=== PATIENT | male | born 1955 | race Caucasian/White ===

== ENCOUNTER 2017-08-27 10:00 | Inpatient (IN) ==
--- NOTE | 2017-08-27 10:26 | Emergency Department Report ---
General Adult HPI - General Chief complaint: Psychiatric Symptoms Stated complaint: [facility] Time Seen by Provider: 08/27/17 10:16 Source: patient Mode of arrival: ambulatory Limitations: no limitations - History of Present Illness HPI narrative: 1-year-old male presents to the emergency department with a chief complaint of depression and suicidal ideation. Patient noted that his feelings of depression and hopelessness increased yesterday. Patient states that he is living in a poor situation with his family who is asking him to pain more than his share of the bills and have been trying to get him to give them his pain medication. Patient notes chronic pain from cancer which is at baseline and has not changed in nature or characteristic. He is currently being treated for lymphoma. He has no other complaints or associated symptoms. He was at home when the symptoms began. Symptoms have been persistent in nature since onset. Patient denies homicidal ideation or plan. He denies self injury or self-harm. Patient states that he is suicidal with a plan to overdose on his pain medication. - Related Data Home Medications Medication Instructions Recorded Confirmed Albuterol HFA Inhaler [Ventolin 2 puff ORAL INH Q4HR PRN 08/27/17 08/27/17 Hfa 90 mcg/actuation] Albuterol Sulfate 2.5 mg AEROSOL DAILY 08/27/17 08/27/17 Ascorbate Calcium [Vitamin C] 500 mg PO DAILY 08/27/17 08/27/17 Aspirin 650 mg PO DAILY 08/27/17 08/27/17 Atorvastatin [Lipitor] 40 mg PO HS 08/27/17 08/27/17 Bisacodyl [Laxative] 5 mg PO DAILY 08/27/17 08/27/17 Budesonide/Formoterol Fumarate 1 puff IH DAILY PRN 08/27/17 08/27/17 [Symbicort 80-4.5 Mcg Inhaler] Cholecalciferol (Vitamin D3) 2,000 unit PO DAILY 08/27/17 08/27/17 [Vitamin D3] Dicyclomine HCl [Bentyl] 10 mg PO DAILY PRN 08/27/17 08/27/17 Empagliflozin [Jardiance] 10 mg PO DAILY 08/27/17 08/27/17 Gabapentin [Neurontin] 300 mg PO QID 08/27/17 08/27/17 Ketoconazole [Ketoconazole] 1 applicatio TOP BID 08/27/17 08/27/17 Lisinopril [Prinivil] 5 mg PO DAILY 08/27/17 08/27/17 Metoprolol Succinate 25 mg PO DAILY 08/27/17 08/27/17 Multivitamin [One Daily] 1 tab PO DAILY 08/27/17 08/27/17 Omeprazole [Prilosec] 20 mg PO ACB 08/27/17 08/27/17 Ondansetron HCl [Zofran] 4 mg PO Q6H PRN 08/27/17 08/27/17 Oxycodone *IR* [Roxicodone *Ir*] 7.5 mg PO Q4-6HR PRN 08/27/17 08/27/17 Peg 3350 238 G Bottle [Miralax] 17 gm PO DAILY PRN 08/27/17 08/27/17 Ranitidine [Zantac] 150 mg PO DAILY 08/27/17 08/27/17 Tiotropium Handihaler [Spiriva] 1 cap ORAL INH DAILY 08/27/17 08/27/17 buPROPion HCl [Bupropion HCl Sr] 150 mg PO DAILY 08/27/17 08/27/17 Allergies Allergy/AdvReac Type Severity Reaction Status Date / Time No Known Allergies Allergy Verified 08/27/17 10:07 Review of Systems Constitutional: Denies: fever Eyes: Denies: eye pain, vision change ENT: Denies: ear pain, throat pain Cardiovascular: Denies: chest pain, palpitations Respiratory: Denies: cough, dyspnea Gastrointestinal: Denies: abdominal pain, nausea, vomiting, diarrhea Genitourinary: Denies: urgency, dysuria Musculoskeletal: Denies: back pain, arthralgia Integumentary: Denies: erythema, rash Neurological: Denies: headache, numbness Psychiatric: Denies: anxiety, depression Endocrine: Denies: fatigue, heat or cold intolerance Hematological/Lymphatic: Denies: easy bleeding, easy bruising PFSH Patient Stated Medical History Transient Ischemic Attacks ( Yes TIA) Congestive Heart Failure Yes Coronary Artery Disease Yes Hypertension Yes Myocardial Infarction Yes Bronchitis Yes Diabetes Mellitus Type 2 Yes Surgical History: Hernia repair, neck surgery, prostate surgery Family History: Reviewed and noncontributory. - Social History Smoking status: Current every day smoker Substance use type: marijuana Alcohol intake frequency: does not drink Physical Exam - Limitations Limitations: no limitations - General General appearance: alert, in no apparent distress - Normal Exams: Head:: Normocephalic without trauma Eyes:: Pupils are PERRLA w/ EOMI, No scleral icterus, irritation, or foreign bodies noted ENMT:: No facial trauma, nasal exudates, pharyngeal erythema, or exudates are noted Dental: No fractured, loose, or missing teeth noted Neck:: Full range of motion, without adenopathy, JVD, bruits or thyromegaly Chest/Respirations:: Clear all dykes, with good airflow, and symmetry bilaterally Cardiovascular:: Regular rate and rhythm, without murmur or gallop, Pulses 2+ all extremities, capillary refill, <2 seconds all extremities Abdomen:: Bowel sounds positive, soft, non-tender, non-distended, no hepatosplenomegaly, masses or bruits noted Lymphatic:: No lymphadenopathy, or lymphedema noted Musculoskeletal:: No tenderness, or deformity noted, good range of motion, all extremities Integumentary:: No rashes, hives, or bruising noted, hair and nails, without abnormality Neurological:: Patient is alert, and oriented, cranial nerves, motor/sensory/ cerebellar, exams w/o gross deficits, to observation Psychiatric:: Patient exhibits, appropriate attention (Flat affect. ) Course Vital Signs Temperature 98.1 F 08/27/17 10:08 Pulse Rate 103 H 08/27/17 10:08 Respiratory Rate 20 08/27/17 10:08 Blood Pressure 151/78 H 08/27/17 10:08 Pulse Oximetry 91 08/27/17 10:08 Temperature 97.5 F 08/27/17 14:00 Pulse Rate 82 08/27/17 14:00 Respiratory Rate 16 08/27/17 14:00 Blood Pressure 105/71 08/27/17 14:00 Pulse Oximetry 94 08/27/17 14:00 Medical Decision Making - [facility] Narrative Medical decision making narrative: Labs were discussed in detail with the patient and questions are answered. Patient is given 1 L normal saline intravenously. Patient is given analgesic pain medication for treatment of his chronic pain secondary to cancer with improvement of symptoms. Patient is admitted to the hospital in improved condition to [facility] for further evaluation and treatment in a psychiatric facility. He is medically clear for further evaluation and treatment in a psychiatric facility. Patient was accepted by Dr. [facility]. No further orders from accepting physician who is in agreement with the current plan of management. Patient is also in agreement with the current plan of management. - Differential Diagnosis depression, anxiety, metabolic disorder, UTI - Lab Data Result diagrams: 08/27/17 10:38 08/27/17 10:38 Lab Results 08/27/17 08/27/17 08/27/17 Range/Units 10:38 10:38 12:20 WBC 9.0 (4.5-11.0) T/MM3 RBC 5.20 (4.50-5.90) M/MM3 Hgb 15.3 (13.5-17.5) GM/DL Hct 46.4 (41-53) % MCV 89.2 (80-100) UM3 MCH 29.4 (26-34) UUG MCHC 33.0 (31-37) GM/DL RDW Std Deviation 46.9 (36.9-50.2) FL Plt Count 251 (130-400) T/MM3 MPV 9.4 (9.4-12.4) UM3 Immature Gran % (Auto) 0.1 (0.0-0.5) % Neut % (Auto) 74.0 H (33-66) % Lymph % (Auto) 17.4 L (23-45) % Deuel % (Auto) 8.2 (0-9.0) % Eos % (Auto) 0.2 (0-4) % Baso % (Auto) 0.1 (0-2) % Neut # (Auto) 6.6 (1.8-7.7) T/MM3 Lymph # (Auto) 1.6 (1-4.8) T/MM3 Deuel # (Auto) 0.7 (0-0.8) T/MM3 Eos # (Auto) 0.0 (0-0.5) T/MM3 Baso # (Auto) 0.0 (0-0.2) T/MM3 Abs Immat Gran (auto) 0.01 (0.00-0.03) T/MM3 Turbidity < 20 (0-20) Sodium 139 (134-144) MEQ/L Potassium 4.6 (3.6-5) MEQ/L Chloride 103 (98-107) MEQ/L Carbon Dioxide 25 (22-30) MEQ/L Anion Gap 11 (5-15) MEQ/L BUN 18.0 (9-20) MG/DL Creatinine 0.6 L (0.8-1.5) MG/DL GFR Calculation 137 BUN/Creatinine Ratio 30 H (6-26) RATIO Glucose 91 (75-110) MG/DL Calculated Osmolality 270 (261-280) MOSM/KG Calcium 9.7 (8.4-10.2) MG/DL Total Bilirubin 1.00 (0.20-1.30) MG/DL Icterus Index < 2 (0-7) AST 18 (17-59) U/L ALT 31 (21-72) U/L Alkaline Phosphatase 85 (38-126) U/L Total Protein 7.8 (6.3-8.2) G/DL Albumin 4.6 (3.5-5.0) G/DL Globulin 3.2 (2.4-3.6) G/DL Albumin/Globulin Ratio 1.4 (1.1-2.2) RATIO TSH 1.05 (0.47-4.68) MIU/L Specimen Hemolysis < 15 (0-25) Ur Collection Type Urine, clean catch Urine Color Yellow (YELLOW) Urine Clarity Clear Urine pH 6.0 (5.0-8.0) Ur Specific Dobbins 1.015 (1.015-1.025) Urine Protein Negative (NEGATIVE) Urine Glucose (UA) 3+ A (NEGATIVE) Urine Ketones 1+ A (NEGATIVE) Urine Occult Blood Negative (NEGATIVE) Urine Nitrate Negative (NEGATIVE) Urine Bilirubin Negative (NEGATIVE) Urine Urobilinogen 1.0 (NORMAL) EU/DL Ur Leukocyte Esterase Negative (NEGATIVE) Urinalysis Comment Microscopic not ind. Salicylates < 1.0 L (2-20) MG/DL Urine Opiates Screen ng/mL Ur Oxycodone Screen ng/mL Urine Methadone Screen ng/mL Ur Propoxyphene Screen ng/mL Acetaminophen < 10 L (10-30) UG/ML Ur Barbiturates Screen ng/mL U Tricyclic Antidepress ng/mL Ur Phencyclidine Scrn ng/mL Ur Amphetamines Screen ng/mL U Methamphetamines Scrn ng/mL U Benzodiazepines Scrn ng/mL Urine Cocaine Screen ng/mL U Cannabinoids Screen ng/mL Ur Drug Screen Confirm Alcohol, Quantitative <10 (<10) MG/DL 08/27/17 08/27/17 Range/Units 12:20 12:20 WBC (4.5-11.0) T/MM3 RBC (4.50-5.90) M/MM3 Hgb (13.5-17.5) GM/DL Hct (41-53) % MCV (80-100) UM3 MCH (26-34) UUG MCHC (31-37) GM/DL RDW Std Deviation (36.9-50.2) FL Plt Count (130-400) T/MM3 MPV (9.4-12.4) UM3 Immature Gran % (Auto) (0.0-0.5) % Neut % (Auto) (33-66) % Lymph % (Auto) (23-45) % Deuel % (Auto) (0-9.0) % Eos % (Auto) (0-4) % Baso % (Auto) (0-2) % Neut # (Auto) (1.8-7.7) T/MM3 Lymph # (Auto) (1-4.8) T/MM3 Deuel # (Auto) (0-0.8) T/MM3 Eos # (Auto) (0-0.5) T/MM3 Baso # (Auto) (0-0.2) T/MM3 Abs Immat Gran (auto) (0.00-0.03) T/MM3 Turbidity (0-20) Sodium (134-144) MEQ/L Potassium (3.6-5) MEQ/L Chloride (98-107) MEQ/L Carbon Dioxide (22-30) MEQ/L Anion Gap (5-15) MEQ/L BUN (9-20) MG/DL Creatinine (0.8-1.5) MG/DL GFR Calculation BUN/Creatinine Ratio (6-26) RATIO Glucose (75-110) MG/DL Calculated Osmolality (261-280) MOSM/KG Calcium (8.4-10.2) MG/DL Total Bilirubin (0.20-1.30) MG/DL Icterus Index (0-7) AST (17-59) U/L ALT (21-72) U/L Alkaline Phosphatase (38-126) U/L Total Protein (6.3-8.2) G/DL Albumin (3.5-5.0) G/DL Globulin (2.4-3.6) G/DL Albumin/Globulin Ratio (1.1-2.2) RATIO TSH (0.47-4.68) MIU/L Specimen Hemolysis (0-25) Ur Collection Type Urine Color (YELLOW) Urine Clarity Urine pH (5.0-8.0) Ur Specific Dobbins (1.015-1.025) Urine Protein (NEGATIVE) Urine Glucose (UA) (NEGATIVE) Urine Ketones (NEGATIVE) Urine Occult Blood (NEGATIVE) Urine Nitrate (NEGATIVE) Urine Bilirubin (NEGATIVE) Urine Urobilinogen (NORMAL) EU/DL Ur Leukocyte Esterase (NEGATIVE) Urinalysis Comment Salicylates (2-20) MG/DL Urine Opiates Screen Negative ng/mL Ur Oxycodone Screen Positive ng/mL Urine Methadone Screen Negative ng/mL Ur Propoxyphene Screen Negative ng/mL Acetaminophen (10-30) UG/ML Ur Barbiturates Screen Negative ng/mL U Tricyclic Antidepress Negative ng/mL Ur Phencyclidine Scrn Negative ng/mL Ur Amphetamines Screen Negative ng/mL U Methamphetamines Scrn Negative ng/mL U Benzodiazepines Scrn Negative ng/mL Urine Cocaine Screen Negative ng/mL U Cannabinoids Screen Positive ng/mL Ur Drug Screen Confirm Sent out Alcohol, Quantitative (<10) MG/DL Disposition Clinical Impression: Depression Qualifiers: Depression Type: major depressive disorder Major depression recurrence: single episode Active/Remission status: currently active Major depression episode severity: severe Psychotic features: without psychotic features Qualified Code(s ): F32.2 - Major depressive disorder, single episode, severe without psychotic features Disposition: 64 To [facility] Condition: Stable Time of Disposition: 12:00 - Seen By: physician
[2017-08-27] MEDS ORDERED: NS 1,000 ML IV ONE (11:15)
[2017-08-27] MEDS: SALINE FLUSH 10ml SYRINGE IVF PRN ×2 (11:24→12:58)
[2017-08-27] MEDS ORDERED: Oxycodone/Acetaminophen 5/325 1 TAB PO ONE (13:07)
[2017-08-27] MEDS ORDERED: HALOPERIDOL 0.5 MG TABLET PO PRN (13:59)
[2017-08-27] MEDS ORDERED: LORazepam 0.5 MG TABLET PO PRN (13:59)
[2017-08-27] MEDS ORDERED: HALOPERIDOL 5 MG/ML INJECTION IM PRN (13:59)
[2017-08-27 15:40] VITALS: BMI 28.2
[2017-08-27] MEDS ORDERED: BUDESONIDE/FORMOTEROL 80/4.5mcg INHALER IH PRN (16:03)
[2017-08-27] MEDS ORDERED: DICYCLOMINE 10mg CAPSULE PO PRN (16:03)
[2017-08-27] MEDS ORDERED: ONDANSETRON 4 MG TABLET PO PRN (16:03)
[2017-08-27] MEDS ORDERED: ALBUTEROL/IPRATROPIUM 2.5mg-0.5mg/3ml NEB AEROSOL PRN (16:04)
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
[2017-08-27] MEDS: NICOTINE 14 MG PATCH TD SCH (17:47)
[2017-08-27] MEDS: GABAPENTIN 100 MG CAPSULE PO SCH ×3 (17:48→21:11)
[2017-08-27] MEDS: Oxycodone *IR* 5 MG TABLET PO PRN ×2 (17:50→21:18)
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
[2017-08-27] MEDS ORDERED: ALBUTEROL 2.5mg/3ml (0.083%) NEB AEROSOL PRN (19:00)
[2017-08-27] MEDS: ATORVASTATIN 40 MG TABLET PO SCH ×2 (19:50→21:11)
[2017-08-27] MEDS: NICOTINE PATCH REMOVAL TD SCH (21:10)
[2017-08-28] MEDS: Oxycodone *IR* 5 MG TABLET PO PRN ×5 (01:17→18:57)
[2017-08-28] MEDS: OMEPRAZOLE 20 MG CAPSULE PO SCH (05:43)
[2017-08-28] MEDS: ASCORBIC ACID 500 MG TABLET PO SCH (08:28)
[2017-08-28] MEDS: Bisacodyl EC TAB 5 MG TABLET PO SCH (08:29)
[2017-08-28] MEDS: EMPAGLIFLOZIN 10 MG TABLET PO SCH (08:29)
[2017-08-28] MEDS: ALBUTEROL 2.5mg/3ml (0.083%) NEB AEROSOL SCH (08:30)
[2017-08-28] MEDS: RANITIDINE 150 MG TABLET PO SCH (08:30)
[2017-08-28] MEDS: LISINOPRIL 5 MG TABLET PO SCH (08:30)
[2017-08-28] MEDS: MULTI-VITAMIN PLAIN TABLET PO SCH (08:30)
[2017-08-28] MEDS: GABAPENTIN 300 MG CAPSULE PO SCH ×4 (08:42→20:07)
[2017-08-28] MEDS: ASPIRIN 325 MG TABLET PO SCH (08:43)
[2017-08-28] MEDS: NICOTINE PATCH REMOVAL TD SCH (08:43)
[2017-08-28] MEDS: BuPROPion SR 150mg (12HR) TABLET PO SCH (08:43)
[2017-08-28] MEDS: NICOTINE 14 MG PATCH TD SCH (08:43)
[2017-08-28] MEDS: TIOTROPIUM 18mcg/cap HANDIHALER ORAL INH SCH (09:30)
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
--- NOTE | 2017-08-28 12:26 | Progress Note ---
Oncology Subjective No new complaints Doesnt want leg x ray done anticpates chemo next week. Pt understands that he has recurrent head and neck ca Home Medications Albuterol HFA Inhaler [Ventolin Hfa 90 mcg/actuation] 2 puff ORAL INH Q4HR PRN 08/27/17 [History Confirmed 08/27/17] Albuterol Sulfate 2.5 mg AEROSOL DAILY 08/27/17 [History Confirmed 08/27/17] Ascorbate Calcium [Vitamin C] 500 mg PO DAILY 08/27/17 [History Confirmed ] Aspirin 650 mg PO DAILY 08/27/17 [History Confirmed 08/27/17] Atorvastatin [Lipitor] 40 mg PO HS 08/27/17 [History Confirmed 08/27/17] Bisacodyl [Laxative] 5 mg PO DAILY 08/27/17 [History Confirmed 08/27/17] Budesonide/Formoterol Fumarate [Symbicort 80-4.5 Mcg Inhaler] 1 puff IH DAILY PRN 08/27/17 [History Confirmed 08/27/17] Cholecalciferol (Vitamin D3) [Vitamin D3] 2,000 unit PO DAILY 08/27/17 [History Confirmed 08/27/17] Dicyclomine HCl [Bentyl] 10 mg PO DAILY PRN 08/27/17 [History Confirmed 08/27/17 ] Empagliflozin [Jardiance] 10 mg PO DAILY 08/27/17 [History Confirmed 08/27/17] Gabapentin [Neurontin] 300 mg PO QID 08/27/17 [History Confirmed 08/27/17] Ketoconazole [Ketoconazole] 1 applicatio TOP BID 08/27/17 [History Confirmed ] Lisinopril [Prinivil] 5 mg PO DAILY 08/27/17 [History Confirmed 08/27/17] Metoprolol Succinate 25 mg PO DAILY 08/27/17 [History Confirmed 08/27/17] Multivitamin [One Daily] 1 tab PO DAILY 08/27/17 [History Confirmed 08/27/17] Omeprazole [Prilosec] 20 mg PO ACB 08/27/17 [History Confirmed 08/27/17] Ondansetron HCl [Zofran] 4 mg PO Q6H PRN 08/27/17 [History Confirmed 08/27/17] Oxycodone *IR* [Roxicodone *Ir*] 7.5 mg PO Q4-6HR PRN 08/27/17 [History Confirmed 08/27/17] Peg 3350 238 G Bottle [Miralax] 17 gm PO DAILY PRN 08/27/17 [History Confirmed 08/27/17] Ranitidine [Zantac] 150 mg PO DAILY 08/27/17 [History Confirmed 08/27/17] Tiotropium Handihaler [Spiriva] 1 cap ORAL INH DAILY 08/27/17 [History Confirmed 08/27/17] buPROPion HCl [Bupropion HCl Sr] 150 mg PO DAILY 08/27/17 [History Confirmed ] Active Medications Albuterol Sulfate (Proventil Neb (0.083%)) 2.5 mg AEROSOL Q4H PRN PRN Reason: Shortness of air Albuterol Sulfate (Proventil Neb (0.083%)) 2.5 mg AEROSOL DAILY [facility] Last Admin: 08/28/17 08:30 Dose: 2.5 mg Albuterol/Ipratropium (Duoneb) 3 ml AEROSOL Q6H PRN Last Admin: 08/27/17 16:20 Dose: 3 ml Ascorbic Acid (Vitamin C) 500 mg PO DAILY [facility] Last Admin: 08/28/17 08:28 Dose: 500 mg Aspirin (Asa) 650 mg PO DAILY [facility] Last Admin: 08/28/17 08:43 Dose: 650 mg Atorvastatin Calcium (Lipitor) 40 mg PO [facility] Last Admin: 08/27/17 21:11 Dose: Not Given Bisacodyl (Dulcolax) 5 mg PO DAILY [facility] Last Admin: 08/28/17 08:29 Dose: 5 mg Budesonide/Formoterol Fumarate (Symbicort Inhaler) 1 puff IH DAILY PRN PRN Reason: PRN orders Bupropion HCl (Wellbutrin Sr) 150 mg PO DAILY [facility] Last Admin: 08/28/17 08:43 Dose: 150 mg Cholecalciferol (Vit. D-3) 2,000 unit PO DAILY [facility] Last Admin: 08/28/17 08:29 Dose: 2,000 unit Dicyclomine HCl (Bentyl) 10 mg PO DAILY PRN PRN Reason: PRN orders Empagliflozin (Jardiance) 10 mg PO DAILY [facility] Last Admin: 08/28/17 08:29 Dose: 10 mg Gabapentin (Neurontin) 300 mg PO QID [facility] Last Admin: 08/28/17 08:42 Dose: 300 mg Haloperidol (Haldol) 0.5 mg PO Q6H PRN PRN Reason: Extreme agitation Haloperidol Lactate (Haldol) 0.5 mg IM Q6H PRN PRN Reason: Extreme agitation Ketoconazole (Nizoral 2% Cream) 1 applic TOP BID [facility] Last Admin: 08/28/17 08:29 Dose: 1 applic Lisinopril (Prinivil) 5 mg PO DAILY [facility] Last Admin: 08/28/17 08:30 Dose: 5 mg Lorazepam (Ativan) 0.5 mg PO Q6H PRN PRN Reason: Extreme agitation Lorazepam (Ativan Inj) 0.5 mg IM Q6H PRN PRN Reason: Extreme agitation Metoprolol Succinate (Toprol Xl) 25 mg PO DAILY [facility] Last Admin: 08/28/17 08:30 Dose: 25 mg Multivitamins (Theragran) 1 tab PO DAILY [facility] Last Admin: 08/28/17 08:30 Dose: 1 tab Nicotine (Nicoderm) 14 mg TD DAILY [facility] Last Admin: 08/28/17 08:43 Dose: 14 mg Nicotine (Nicotine Patch Removal) 1 removal TD DAILY [facility] Last Admin: 08/28/17 08:43 Dose: 1 removal Omeprazole (Prilosec) 20 mg PO ACB [facility] Last Admin: 08/28/17 05:43 Dose: 20 mg Ondansetron HCl (Zofran Po) 4 mg PO Q6H PRN PRN Reason: Nausea &/or vomiting Oxycodone HCl (Roxicodone *Ir*) 5 mg PO Q3H PRN PRN Reason: Pain Last Admin: 08/28/17 11:43 Dose: 5 mg Polyethylene Glycol (Miralax) 17 gm PO DAILY PRN PRN Reason: CONSTIPATION Ranitidine HCl (Zantac) 150 mg PO DAILY [facility] Last Admin: 08/28/17 08:30 Dose: 150 mg Tiotropium [place] (Spiriva) 1 cap ORAL INH DAILY [facility] Last Admin: 08/28/17 09:30 Dose: 1 cap Intake & Output 08/26/17 08/27/17 08/28/17 08/29/17 06:59 06:59 06:59 06:59 Intake Total 1000 / 1000 Balance 1000 / 1000 Weight 89.3 kg Active Orders 24 hr Category Date Time Status Admit [Place in Facility as:] [ADMIT] Order Admit 08/27/17 13:38 Active Admitting Diagnosis [ADMIT] Routine Admit 08/27/17 13:59 Ordered [facility] Certification [ADMIT] Routine Admit 08/27/17 13:59 Active [facility] Legal Status [ADMIT] Routine Admit 08/27/17 13:59 Active Activity [RC] .CONTINUOUS Care 08/27/17 16:02 Active Blood Glucose Assessment BGM [RC] 06,10,14,20 Care 08/27/17 16:02 Active [facility] Activity Therapy [RC] Now Care 08/27/17 13:59 Active [facility] Observation Level [RC] Now Care 08/27/17 13:59 Active May give home meds during hosp [RC] .once Care 08/27/17 16:07 Active Supplemental Oxygen Titration [RC] ONCE Care 08/27/17 16:07 Active Code Status Order Code 08/27/17 13:41 Ordered Case Management Consult [CONS] Routine Consults 08/27/17 13:59 Active Physician Consult [CONS] Routine Consults 08/27/17 13:59 Active Physician Consult [CONS] Routine Consults 08/27/17 14:00 Active Regular Diet [DIET] Diet 08/27/17 Dinner Active XR femur RT 2V Routine Exams 08/28/17 08:00 Ordered Albuterol Neb (0.083%) [Proventil Neb (0.083%)] Medication 08/28/17 09:00 Active 2.5 mg AEROSOL DAILY Albuterol Neb (0.083%) [Proventil Neb (0.083%)] Medication 08/27/17 19:00 Active 2.5 mg AEROSOL Q4H PRN Albuterol/Ipratropium [Duoneb] Medication 08/27/17 16:04 Active 3 ml AEROSOL Q6H PRN Ascorbic Acid [Vitamin C] Medication 08/28/17 09:00 Active 500 mg PO DAILY Aspirin [ASA] Medication 08/28/17 09:00 Active 650 mg PO DAILY Atorvastatin [Lipitor] Medication 08/27/17 21:00 Active 40 mg PO HS Bisacodyl EC TAB [Dulcolax] Medication 08/28/17 09:00 Active 5 mg PO DAILY BuPROPion SR [Wellbutrin SR] Medication 08/28/17 09:00 Active 150 mg PO DAILY Budesonide/Formoterol 80/4.5 [Symbicort Inhaler] Medication 08/27/17 16:03 Active 1 puff IH DAILY PRN Cholecalciferol [Vit. D-3] Medication 08/28/17 09:00 Active 2,000 unit PO DAILY Dicyclomine [Bentyl] Medication 08/27/17 16:03 Active 10 mg PO DAILY PRN Empagliflozin [Jardiance] Medication 08/28/17 09:00 Active 10 mg PO DAILY Gabapentin [Neurontin] Medication 08/28/17 09:00 Active 300 mg PO QID Haloperidol Inj [Haldol] Medication 08/27/17 13:59 Active 0.5 mg IM Q6H PRN Haloperidol [Haldol] Medication 08/27/17 13:59 Active 0.5 mg PO Q6H PRN Ketoconazole Cream [Nizoral 2% Cream] Medication 08/27/17 21:00 Active 1 applic TOP BID LORazepam INJ [Ativan Inj] Medication 08/27/17 13:59 Active 0.5 mg IM Q6H PRN LORazepam [Ativan] Medication 08/27/17 13:59 Active 0.5 mg PO Q6H PRN Lisinopril [Prinivil] Medication 08/28/17 09:00 Active 5 mg PO DAILY Metoprolol Succinate (XL) [Toprol XL] Medication 08/28/17 09:00 Active 25 mg PO DAILY Multi-Vitamin Plain [Theragran] Medication 08/28/17 09:00 Active 1 tab PO DAILY Nicotine Patch Removal Medication 08/27/17 16:15 Active 1 removal TD DAILY Nicotine Patch [Nicoderm] Medication 08/27/17 16:06 Active 14 mg TD DAILY Omeprazole [Prilosec] Medication 08/28/17 06:30 Active 20 mg PO ACB Ondansetron Tab [Zofran Po] Medication 08/27/17 16:03 Active 4 mg PO Q6H PRN Oxycodone *IR* [Roxicodone *IR*] Medication 08/27/17 13:59 Active 5 mg PO Q3H PRN PEG 3350 17gm PACKET [Miralax] Medication 08/28/17 09:00 Active 17 gm PO DAILY PRN Ranitidine [Zantac] Medication 08/28/17 09:00 Active 150 mg PO DAILY Tiotropium Handihaler [Spiriva] Medication 08/28/17 09:00 Active 1 cap ORAL INH DAILY Oxygen Admistration [RT] . DIRECTED Therapy 08/27/17 16:02 Active RT Tobacco Cessation Product Inspection Coordinator [RT] BID Therapy 08/27/17 16:35 Active Exam Vital signs: Temperature 97.2 F 08/28/17 08:00 Pulse Rate 101 H 08/28/17 08:00 Respiratory Rate 14 08/28/17 09:30 Blood Pressure 124/81 08/28/17 08:00 Pulse Oximetry 96 08/28/17 09:05 - Constitutional no acute distress, average body habitus - Routine HEENT Exam Head: Present: normocephalic, atraumatic - Routine Neck Exam Present: supple. Absent: lymphadenopathy Comments: s/p r neck dissection - Routine Respiratory Exam Present: CTA bilaterally - Routine Cardiovascular Exam Present: RRR - Routine Abdominal Exam Present: soft, non tender - Routine Extremities Exam Present: no edema. Absent: cyanosis, clubbing - Routine Neurological Exam Present: alert, oriented X3 Oncology Results - Labs CBC & Chem 7: 08/27/17 10:38 08/27/17 10:38 Assessment and Plan Assessment and Plan: 1. 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 S/P Transoral robotic resection with 1.8 cm primary and neck dissection with 15 level. 2 nodes with 4 positive, with largest being 5.2 cm neck node. 13 level: 3 nodes, 2 positive. 10 level: 4 nodes with no cancer. No extracapsular extension. CT in October had mildly prominent cervical nodes. These progressed in June by CT and PET scan positive in neck and bone. 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 Port has been placed. Performance status is 2; therefore, by NCCN guidelines he would qualify for single agent chemotherapy. Options would include Cisplatin, Carboplatin, Erbitux and Taxol. [place] has most activity in head and neck cancer. Discussion with patient and daughter about therapy, palliative nature with best supportive care. This is not curative. Discussed goal of therapy to suppress cancer growth and symptoms related to cancer. He is frail with comorbid conditions. Therefore, weekly Carboplatin would provide best chance of response but have limits on toxicity. Will provide education and look at starting in next 2 weeks if he desires. 07/29/17: He will have insurance coverage on 08/09/17. Would like to delay starting therapy until that time. Will see back on 08/10/17 to start therapy. 08/10/17: Ready to start therapy. Will use weekly Carboplatin. Start today. Dose calculated at 300 mg. Will see Cande Gao in one week and I will see in 2 weeks. 08/23/17: Carboplatinum has been continued in his current dose of 300 mg he is tolerating it very well. Counts have been adequate. He has slight nausea. We'll continue present therapy. He is tolerating therapy very well and it is too early to assess his response disease. The nature of this therapy is palliative. He was having pain at time of presentation. Be concern is the lesion in the right femur and will obtain plain films to be sure that this is not causing a problem but he is not having any pain in this area. Patient's depression may affect his decision to continue chemotherapy. 2. Bone metastasis. Would look at using Xgeva prevention of skeletal related events. This will probably take place in 2-4 weeks if the patient elects to continue chemotherapy.. 3. Chronic obstructive pulmonary disease. He has seen Dr. Kumar. He uses oxygen at night and is on inhalers. 4. Diabetes mellitus blood sugars have been fairly well controlled. 07/19/17: Blood sugar 96. 08/10/17: Blood sugar 96. 08/23/17: Blood sugar 87. 5. Chronic pain from metastasis. Narcotic contract has been in place. Prescription was given on 08/23/17 484 tablets. 25 remain. It is of note that his urine drug screen today was negative for opioids. Therefore one must reduce that there was diversion, substitution, or other processes that have gone on to not allow this patient to have his pain medications. In addition his method of suicide that he commented on was to take an overdose of pain medicine. We'll await psych input regarding pain management 6. History of heart disease Recommendations Evaluate living situation and have a safe discharge plan Evaluate pain and need for narcotics X-ray of the right femur Supportive care antidepressant Things you very much for allowing us to be involved in the care of Mr. Catherine Campbell No new complaints wednesday08/28/2017 Pt and shawna from [place] here Pt declines leg x ray (deffered to next week and discussion with Dr. Samaniego/ No new c/o Plan consider resuming chemo with carbo next week per Dr Samaniego. - Time Spent With Patient Total time spent is greater than 50% in coordination of care (as documented) at patient's floor/unit and/or counseling patient: less than 15 minutes
[2017-08-28] MEDS: ATORVASTATIN 40 MG TABLET PO SCH (20:07)
[2017-08-29] MEDS: Oxycodone *IR* 5 MG TABLET PO PRN ×9 (00:04→23:54)
[2017-08-29] MEDS ORDERED: Oxycodone *IR* 5 MG TABLET PO ONE (00:29)
[2017-08-29] MEDS: MORPHINE SULFATE 10mg/0.5ml ORAL LIQ SL PRN ×8 (00:38→23:53)
[2017-08-29] MEDS: OMEPRAZOLE 20 MG CAPSULE PO SCH (05:58)
[2017-08-29] MEDS: ASCORBIC ACID 500 MG TABLET PO SCH (08:13)
[2017-08-29] MEDS: Bisacodyl EC TAB 5 MG TABLET PO SCH (08:15)
[2017-08-29] MEDS: BuPROPion SR 150mg (12HR) TABLET PO SCH (08:15)
[2017-08-29] MEDS: EMPAGLIFLOZIN 10 MG TABLET PO SCH (08:16)
[2017-08-29] MEDS: LISINOPRIL 5 MG TABLET PO SCH (08:17)
[2017-08-29] MEDS: GABAPENTIN 300 MG CAPSULE PO SCH ×4 (08:17→20:53)
[2017-08-29] MEDS: NICOTINE 14 MG PATCH TD SCH (08:18)
[2017-08-29] MEDS: MULTI-VITAMIN PLAIN TABLET PO SCH (08:18)
[2017-08-29] MEDS: RANITIDINE 150 MG TABLET PO SCH (08:18)
[2017-08-29] MEDS: ALBUTEROL 2.5mg/3ml (0.083%) NEB AEROSOL SCH (09:27)
[2017-08-29] MEDS: TIOTROPIUM 18mcg/cap HANDIHALER ORAL INH SCH (09:53)
[2017-08-29] MEDS ORDERED: INHALER ASSIST DEVICE (Optichamber) MC ONE (10:15)
--- NOTE | 2017-08-29 10:42 | Neuropsych Progress Note ---
[facility] Subjective Date: 08/29/17 - Sujective/Severity of Illness Medications: Albuterol Sulfate (Proventil Neb (0.083%)) 2.5 mg AEROSOL Q4H PRN PRN Reason: Shortness of air Albuterol Sulfate (Proventil Neb (0.083%)) 2.5 mg AEROSOL DAILY [facility] Last Admin: 08/29/17 09:27 Dose: 2.5 mg Ascorbic Acid (Vitamin C) 500 mg PO DAILY [facility] Last Admin: 08/29/17 08:13 Dose: 500 mg Aspirin (Asa) 650 mg PO DAILY [facility] Last Admin: 08/28/17 08:43 Dose: 650 mg Atorvastatin Calcium (Lipitor) 40 mg PO HS [facility] Last Admin: 08/28/17 20:07 Dose: 40 mg Bisacodyl (Dulcolax) 5 mg PO DAILY [facility] Last Admin: 08/29/17 08:15 Dose: 5 mg Budesonide/Formoterol Fumarate (Symbicort Inhaler) 2 puff ORAL INH RTBID [facility] Bupropion HCl (Wellbutrin Sr) 150 mg PO DAILY [facility] Last Admin: 08/29/17 08:15 Dose: 150 mg Cholecalciferol (Vit. D-3) 2,000 unit PO DAILY [facility] Last Admin: 08/29/17 08:16 Dose: 2,000 unit Dicyclomine HCl (Bentyl) 10 mg PO DAILY PRN PRN Reason: PRN orders Empagliflozin (Jardiance) 10 mg PO DAILY [facility] Last Admin: 08/29/17 08:16 Dose: 10 mg Gabapentin (Neurontin) 300 mg PO QID [facility] Last Admin: 08/29/17 08:17 Dose: 300 mg Haloperidol (Haldol) 0.5 mg PO Q6H PRN PRN Reason: Extreme agitation Haloperidol Lactate (Haldol) 0.5 mg IM Q6H PRN PRN Reason: Extreme agitation Ketoconazole (Nizoral 2% Cream) 1 applic TOP BID [facility] Last Admin: 08/29/17 08:17 Dose: 1 applic Lisinopril (Prinivil) 5 mg PO DAILY [facility] Last Admin: 08/29/17 08:17 Dose: 5 mg Lorazepam (Ativan) 0.5 mg PO Q6H PRN PRN Reason: Extreme agitation Lorazepam (Ativan Inj) 0.5 mg IM Q6H PRN PRN Reason: Extreme agitation Metoprolol Succinate (Toprol Xl) 25 mg PO DAILY [facility] Last Admin: 08/29/17 08:18 Dose: 25 mg Morphine Sulfate (Roxanol Oral Liq) 2 mg SL Q2H PRN PRN Reason: Pain Last Admin: 08/29/17 08:19 Dose: 2 mg Multivitamins (Theragran) 1 tab PO DAILY [facility] Last Admin: 08/29/17 08:18 Dose: 1 tab Nicotine (Nicoderm) 14 mg TD DAILY [facility] Last Admin: 08/29/17 08:18 Dose: 14 mg Nicotine (Nicotine Patch Removal) 1 removal TD DAILY [facility] Last Admin: 08/28/17 08:43 Dose: 1 removal Omeprazole (Prilosec) 20 mg PO ACB [facility] Last Admin: 08/29/17 05:58 Dose: 20 mg Ondansetron HCl (Zofran Po) 4 mg PO Q6H PRN PRN Reason: Nausea &/or vomiting Oxycodone HCl (Roxicodone *Ir*) 5 mg PO Q3H PRN PRN Reason: Pain Last Admin: 08/29/17 08:59 Dose: 5 mg Polyethylene Glycol (Miralax) 17 gm PO DAILY PRN PRN Reason: CONSTIPATION Ranitidine HCl (Zantac) 150 mg PO DAILY [facility] Last Admin: 08/29/17 08:18 Dose: 150 mg Tiotropium [place] (Spiriva) 1 cap ORAL INH DAILY [facility] Last Admin: 08/29/17 09:53 Dose: 1 cap Subjective: Pt seen and chart examined. Nursing reports pt is doing well. Sleeping well and has a good appetite. On face to face the pt states he is feeling better. Remains depressed but mood is improved. Denies S/I. Tolerating meds. Continues to worry about home situation Start Time: 10:15 Stop Time: 10:30 Mental Status Exam Vitals: Last Vital Signs Temp 97.2 F 08/29/17 08:44 Pulse 97 08/29/17 08:44 Resp 20 08/29/17 09:50 BP 110/86 08/29/17 08:44 Pulse Ox 91 08/29/17 09:31 Height: 1.78 m Weight: 89.3 kg - Mental Status Exam Muscle Strength/Tone: Normal Dressing: Casual Grooming: Good Attitude: Cooperative Motor Activity: Normal Eye Contact: Good Speech: Normal Volume: Normal Rhythm: Appropriate Rhythm Orientation: Oriented X4 Mood: Depressed Rate of Thoughts: Appropriate Rate Thought Organization: Organized Associations: Intact Abstract Reasoning: Intact, able to abstract Computation: Intact Thought Content: Hopelessness, Helplessness Perception/Psychotic: Perception Normal Language: Naming Intact Fund of Knowledge: Appropriate Memory: Grossly Intact Suicidal Ideation: Intermittent Homicidal Ideation: None Insight: Limited Judgement: Limited Impulse Control: Fair - Laboratory Result Diagrams: 08/27/17 10:38 08/27/17 10:38 Laboratory Results - last 24 hr 08/28/17 08/28/17 08/28/17 11:23 15:55 20:34 Glucometer 106 146 163 08/29/17 08/29/17 07:25 09:51 Glucometer 123 132 Assessment and Plan (1) Major depress dis, severe Current visit: Yes Status: Acute (2) Lymphoma Current visit: Yes Status: Chronic Hospital Course Summary Disclaimer: The visit summary below is not to be considered part of the above Progress Note. Hospital Course: Plan - 08/27/17 Agree with admission to [facility] under the care of Dr. Richards and team. Hospitalist service consulted for medical management. Admission labs were unremarkable. Will monitor periodically throughout admission. History of lymphoma which patient reports is terminal and currently undergoing chemotherapy per Dr. Samaniego. Consult Dr. Samaniego for oncology maintenance. Monitor blood sugars closely and continue home Jardiance. Continue home blood pressure medications - lisinopril and metoprolol. Monitor blood pressure and heart rate closely. Continue home breathing treatments. DuoNeb treatments PRN. Use of oxygen at night at 4L and during the day as needed. Goal pulse ox between 90-95%. Continue home prilosec and zantac for GERD and GI protection. Nicotine patch for tobacco dependency. Will consult RT for smoking cessation counseling. Patient may take home medications. Continue bowel motivation given narcotic pain control. Case management to work with patient on finding safe place upon discharge. Upon discharge, patient's care will be returned to his PCP. 08/29/2017 Pt doing better. Mood symptoms primarily situational. Consider switching Wellbutrin to XL version
[2017-08-29] MEDS: ASPIRIN 325 MG TABLET PO SCH (11:25)
[2017-08-29] MEDS: NICOTINE PATCH REMOVAL TD SCH (11:25)
--- NOTE | 2017-08-29 11:34 | XRay Report ---
Indication: POSITIVE PET RT FEMUR XR femur LT 2V: Comparison: None Technique: AP and lateral views Findings: Patient fails to show any acute bony abnormality. No pathologic fractures are identified. No lytic or blastic lesions are seen. Mild medial degenerative changes noted about the knee. Hip joint is intact. Impression: No acute bony findings are appreciated. Sometimes bone scanning can be more sensitive than plain film radiography. .
--- NOTE | 2017-08-29 11:36 | XRay Report ---
Indication: Positive PET right femoral neck XR femur RT 2V: Comparison: None Technique: AP and lateral view Findings: Patient fails to show within the visualized bony abnormality. The cortex seems intact. No focal lytic or blastic lesions are seen. No traumatic abnormality such as fractures or malalignments noted. Hip joint knee joint are intact. Impression: 1. No definitive bony lesions appreciated. Specifically, no pathologic fracture or definitive focal bony lesions are seen. 2. Since patient showed abnormal findings on the recent PET scan, perhaps bone scanning or MR imaging may be a consideration. It can take up to 50% bone mineral lost before lesions are visualized on plain radiographs. .
--- NOTE | 2017-08-29 16:05 | Progress Note ---
- Date 08/29/17 Subjective: Brigido is seen in follow up. He reports feeling "less stressed here", and overall is feeling better. Remains concerned about DC plans. States that he cannot return home with daughter and her "his mother recently , and I am afraid I am going to be next." Reports that "they always needed something- the rent, the utilities, the gas. They are always out of money." Again reports that he thinks his pain meds were "replaced with something else. There wasn't anything in my urine." Believes that his daughter is stealing his pain medications "She is always asking me for 'just a pill or two'." He is looking forward to potential DC to nursing facility. We discussed other community options, such as [facility] in the [place], that can provide support to cancer patients and their families. He again reports that he prefers to use "hemp oil" for his pain, and that it was very effective for him. He is pleasant, mood and affect are fairly appropriate. I sat with him for a while to chat and offered support. Objective Vital signs: Temperature 97.2 F 08/29/17 08:44 Pulse Rate 97 08/29/17 08:44 Respiratory Rate 18 08/29/17 10:44 Blood Pressure 110/86 08/29/17 08:44 Pulse Oximetry 91 08/29/17 09:31 Height/Weight/BMI: Height 1.78 m Weight 89.3 kg Body Mass Index 28.2 - Constitutional Present: no acute distress, well nourished, well developed, cooperative - Routine HEENT Exam Head: Present: normocephalic, atraumatic Eye: Present: EOMI, PERRL, normal accommodation ENT: Present: mucous membranes moist - Routine Respiratory Exam Present: CTA bilaterally. Absent: rhonchi, crackles, distant breath sounds - Routine Cardiovascular Exam Present: RRR, S1, S2, no murmur - Routine Abdominal Exam Present: soft, normoactive bowel sounds, non distended, non tender - Routine Extremities Exam Present: no edema, non tender - Routine Musculoskeletal Exam Musculoskeletal: Present: normal strength, moving extremities well - Routine Skin Exam Present: intact, dry, warm - Routine Neurological Exam Present: alert, moving all extremities - Routine Psychiatric Exam Present: cooperative Results - Labs CBC & Chem 7: 08/27/17 10:38 08/27/17 10:38 - Impressions Imaging reviewed. Assessment and Plan (1) Depression Current visit: Yes Status: Acute (2) Lymphoma Current visit: Yes Status: Chronic Assessment and Plan: Assessment Major depressive disorder with suicidal ideation. Lymphoma -follows with Dr. Samaniego. Diastolic congestive heart failure. CAD. Hypertension. History of NC. COPD. Nocturnal home oxygen dependency at 4L. Sleep apnea. History of TIA. Tobacco dependency. Diabetes Mellitus Type 2. GERD. IBS. History of DVT. Vitamine D deficiency. Immunosuppression secondary to current chemotherapy. Chronic pain. Constipation. Plan - 08/29/17 Overall, Brigido is doing well. Does continue to express stressors re: his terminal malignancy and his living situation. Offered support, encouraged him to continue to F/U with SW team. He remains very uncomfortable with the prospect of living with his oldest daughter. Not willing to return there. BP, BG are well controlled. Continue current. Continue Nocturnal O2. RT reported that pt. needed some adjustments to his inhalers, which I made earlier today. Continue supportive care. Dr. Samaniego following. Labs, documentation, imaging reviewed. DVT Prophylaxis: other (N/A) Resuscitation Status: Full Code - Physician Narrative Narrative: Date: 08/29/17 Time: 1601 Hospital Course Summary Disclaimer: The visit summary below is not to be considered part of the above Progress Note. Hospital Course: Plan - 08/27/17 Agree with admission to [facility] unit under the care of Dr. Richards and team. Hospitalist service consulted for medical management. Admission labs were unremarkable. Will monitor periodically throughout admission. History of lymphoma which patient reports is terminal and currently undergoing chemotherapy per Dr. Samaniego. Consult Dr. Samaniego for oncology maintenance. Monitor blood sugars closely and continue home Jardiance. Continue home blood pressure medications - lisinopril and metoprolol. Monitor blood pressure and heart rate closely. Continue home breathing treatments. DuoNeb treatments PRN. Use of oxygen at night at 4L and during the day as needed. Goal pulse ox between 90-95%. Continue home prilosec and zantac for GERD and GI protection. Nicotine patch for tobacco dependency. Will consult RT for smoking cessation counseling. Patient may take home medications. Continue bowel motivation given narcotic pain control. Case management to work with patient on finding safe place upon discharge. Upon discharge, patient's care will be returned to his PCP. 08/29/2017 Pt doing better. Mood symptoms primarily situational. Consider switching Wellbutrin to XL version Plan - 08/29/17 Overall, Brigido is doing well. Does continue to express stressors re: his terminal malignancy and his living situation. Offered support, encouraged him to continue to F/U with SW team. He remains very uncomfortable with the prospect of living with his oldest daughter. Not willing to return there. BP, BG are well controlled. Continue current. Continue Nocturnal O2. RT reported that pt. needed some adjustments to his inhalers, which I made earlier today. Continue supportive care. Dr. Samaniego following. Labs, documentation, imaging reviewed.
[2017-08-29] MEDS: ATORVASTATIN 40 MG TABLET PO SCH (20:53)
[2017-08-30] MEDS: Oxycodone *IR* 5 MG TABLET PO PRN ×6 (03:00→18:25)
[2017-08-30] MEDS: MORPHINE SULFATE 10mg/0.5ml ORAL LIQ SL PRN ×7 (03:01→20:45)
[2017-08-30] MEDS: OMEPRAZOLE 20 MG CAPSULE PO SCH (05:57)
[2017-08-30] MEDS: ASCORBIC ACID 500 MG TABLET PO SCH (08:16)
[2017-08-30] MEDS: Bisacodyl EC TAB 5 MG TABLET PO SCH (08:18)
[2017-08-30] MEDS: BuPROPion SR 150mg (12HR) TABLET PO SCH (08:18)
[2017-08-30] MEDS: EMPAGLIFLOZIN 10 MG TABLET PO SCH (08:19)
[2017-08-30] MEDS: MULTI-VITAMIN PLAIN TABLET PO SCH (08:21)
[2017-08-30] MEDS: GABAPENTIN 300 MG CAPSULE PO SCH ×4 (08:21→20:38)
[2017-08-30] MEDS: LISINOPRIL 5 MG TABLET PO SCH (08:21)
[2017-08-30] MEDS: NICOTINE 14 MG PATCH TD SCH (08:21)
[2017-08-30] MEDS: RANITIDINE 150 MG TABLET PO SCH (08:22)
[2017-08-30] MEDS: ASPIRIN 325 MG TABLET PO SCH (08:23)
[2017-08-30] MEDS: POLYETHYL GLYCOL 3350 17gm PACKET PO PRN (09:10)
[2017-08-30] MEDS: NICOTINE PATCH REMOVAL TD SCH (11:52)
--- NOTE | 2017-08-30 13:21 | Progress Note ---
Oncology Subjective Doing well in [facility]. Dealing with issues. wants to continue chemotherapy. Exam Vital signs: Temperature 97.0 F 08/30/17 08:00 Pulse Rate 91 08/30/17 08:00 Respiratory Rate 18 08/30/17 12:24 Blood Pressure 114/75 08/30/17 08:00 Pulse Oximetry 94 08/30/17 08:00 - Constitutional no acute distress, cooperative - Routine HEENT Exam Head: Present: normocephalic Eye: Present: EOMI, PERRL Throat: other (Moist [place]braines without mucousitis) - Routine Neck Exam Present: supple, lymphadenopathy (1 cm right SC node) - Routine Cardiovascular Exam Present: RRR, no murmur - Routine Abdominal Exam Present: soft, normoactive bowel sounds, non distended, non tender - Routine Extremities Exam Absent: cyanosis, clubbing, edema - Routine Skin Exam Present: dry, warm - Routine Neurological Exam Present: alert, CN II-XII intact - Routine Psychiatric Exam Present: normal affect, normal thought process Oncology Results - Labs CBC & Chem 7: 08/30/17 07:46 08/30/17 07:46 Labs: Short CBC 08/30/17 Range/Units 07:46 WBC 10.4 (4.5-11.0) T/MM3 Hgb 15.6 (13.5-17.5) GM/DL Hct 47.2 (41-53) % Plt Count 244 (130-400) T/MM3 BMP 08/30/17 07:46 Sodium 136 Potassium 4.3 Chloride 97 L Carbon Dioxide 28 BUN 17.0 Creatinine 0.7 L Glucose 101 Calcium 9.9 Liver Function 08/30/17 Range/Units 07:46 Total Bilirubin 0.70 (0.20-1.30) MG/DL AST 20 (17-59) U/L ALT 29 (21-72) U/L Alkaline Phosphatase 74 (38-126) U/L Albumin 4.6 (3.5-5.0) G/DL Assessment and Plan Assessment and Plan: 1. 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 S/P Transoral robotic resection with 1.8 cm primary and neck dissection with 15 level. 2 nodes with 4 positive, with largest being 5.2 cm neck node. 13 level: 3 nodes, 2 positive. 10 level: 4 nodes with no cancer. No extracapsular extension. CT in October had mildly prominent cervical nodes. These progressed in June by CT and PET scan positive in neck and bone. 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 Port has been placed. Performance status is 2; therefore, by NCCN guidelines he would qualify for single agent chemotherapy. Options would include Cisplatin, Carboplatin, Erbitux and Taxol. [place] has most activity in head and neck cancer. Discussion with patient and daughter about therapy, palliative nature with best supportive care. This is not curative. Discussed goal of therapy to suppress cancer growth and symptoms related to cancer. He is frail with comorbid conditions. Therefore, weekly Carboplatin would provide best chance of response but have limits on toxicity. Will provide education and look at starting in next 2 weeks if he desires. 07/29/17: He will have insurance coverage on 08/09/17. Would like to delay starting therapy until that time. Will see back on 08/10/17 to start therapy. 08/10/17: Ready to start therapy. Will use weekly Carboplatin. Start today. Dose calculated at 300 mg. Will see [place] in one week and I will see in 2 weeks. 08/23/17: Carboplatinum has been continued in his current dose of 300 mg he is tolerating it very well. Counts have been adequate. He has slight nausea. We'll continue present therapy. He is tolerating therapy very well and it is too early to assess his response disease. The nature of this therapy is palliative. He was having pain at time of presentation. Be concern is the lesion in the right femur and will obtain plain films to be sure that this is not causing a problem but he is not having any pain in this area. Patient's depression may affect his decision to continue chemotherapy. 08/30/17.: Counts adequate and will continue with 300 mg carboplatin. AUC of 2 calculated based on creatinine today. 2. Bone metastasis. Would look at using Xgeva prevention of skeletal related events. This will probably take place in 2-4 weeks if the patient elects to continue chemotherapy.. Xray of femur did not see lytic bone lesion. 3. Chronic obstructive pulmonary disease. He has seen Dr. Kumar. He uses oxygen at night and is on inhalers. 4. Diabetes mellitus blood sugars have been fairly well controlled. 07/19/17: Blood sugar 96. 08/10/17: Blood sugar 96. 08/23/17: Blood sugar 87. 08/30/17: Blood sugar 101 5. Chronic pain from metastasis. Narcotic contract has been in place. Prescription was given on 08/23/17 484 tablets. 25 remain. It is of note that his urine drug screen today was negative for opioids. Therefore one must reduce that there was diversion, substitution, or other processes that have gone on to not allow this patient to have his pain medications. In addition his method of suicide that he commented on was to take an overdose of pain medicine. We'll await psych input regarding pain management 08/30/17: Pain controlled. 6. History of heart disease Recommendations Evaluate living situation and have a safe discharge plan Evaluate pain and need for narcotics X-ray of the right femur Supportive care antidepressant - Time Spent With Patient Total time spent is greater than 50% in coordination of care (as documented) at patient's floor/unit and/or counseling patient: less than 15 minutes
[2017-08-30] MEDS ORDERED: DiphenhydrAMINE 50 MG/ML INJECTION IVP PRN (13:42)
[2017-08-30] MEDS ORDERED: HYDROCORTISONE SOD SUCC 100mg/2ml INJECTION IVP PRN (13:43)
[2017-08-30] MEDS ORDERED: METHYLPREDNISOLONE SOD SUCC 125mg/2ml INJECTION IVP PRN (13:44)
[2017-08-30] MEDS ORDERED: PALONOSETRON 0.25 MG/5 ML INJECTION IV ONE (13:45)
[2017-08-30] MEDS ORDERED: CARBOPLATIN IV ONE (13:45)
[2017-08-30] MEDS ORDERED: NS IV ONE ×2 (13:45→14:00)
[2017-08-30] MEDS ORDERED: DEXAMETHASONE IV ONE (14:00)
[2017-08-30] MEDS: ALBUTEROL 2.5mg/3ml (0.083%) NEB AEROSOL SCH (17:20)
[2017-08-30] MEDS: TIOTROPIUM 18mcg/cap HANDIHALER ORAL INH SCH (20:10)
[2017-08-30] MEDS: ATORVASTATIN 40 MG TABLET PO SCH (20:38)
--- NOTE | 2017-08-30 21:02 | Neuropsych Progress Note ---
[facility] Subjective Date: 08/31/17 - Sujective/Severity of Illness Medications: Albuterol Sulfate (Proventil Neb (0.083%)) 2.5 mg AEROSOL Q4H PRN PRN Reason: Shortness of air Albuterol Sulfate (Proventil Neb (0.083%)) 2.5 mg AEROSOL DAILY REPLACED BY [facility] Last Admin: 08/30/17 17:20 Dose: Not Given Ascorbic Acid (Vitamin C) 500 mg PO DAILY REPLACED BY [facility] Last Admin: 08/30/17 08:16 Dose: 500 mg Aspirin (Asa) 650 mg PO DAILY REPLACED BY [facility] Last Admin: 08/30/17 08:23 Dose: 650 mg Atorvastatin Calcium (Lipitor) 40 mg PO HS REPLACED BY [facility] Last Admin: 08/30/17 20:38 Dose: 40 mg Bisacodyl (Dulcolax) 5 mg PO DAILY REPLACED BY [facility] Last Admin: 08/30/17 08:18 Dose: 5 mg Budesonide/Formoterol Fumarate (Symbicort Inhaler) 2 puff ORAL INH RTBID REPLACED BY [facility] Last Admin: 08/30/17 16:36 Dose: 2 puff Bupropion HCl (Wellbutrin Sr) 150 mg PO DAILY REPLACED BY [facility] Last Admin: 08/30/17 08:18 Dose: 150 mg Cholecalciferol (Vit. D-3) 2,000 unit PO DAILY REPLACED BY [facility] Last Admin: 08/30/17 08:19 Dose: 2,000 unit Dicyclomine HCl (Bentyl) 10 mg PO DAILY PRN Diphenhydramine HCl (Benadryl) 50 mg IVP PRN PRN PRN Reason: FOR HYPERSENSITIVITY REACTION Empagliflozin (Jardiance) 10 mg PO DAILY REPLACED BY [facility] Last Admin: 08/30/17 08:19 Dose: 10 mg Gabapentin (Neurontin) 300 mg PO QID REPLACED BY [facility] Last Admin: 08/30/17 20:38 Dose: 300 mg Haloperidol (Haldol) 0.5 mg PO Q6H PRN PRN Reason: Extreme agitation Haloperidol Lactate (Haldol) 0.5 mg IM Q6H PRN PRN Reason: Extreme agitation Hydrocortisone Sodium Succinate (Solu-Cortef) 100 mg IVP PRN PRN PRN Reason: FOR HYPERSENTIVITY REACTION Ketoconazole (Nizoral 2% Cream) 1 applic TOP BID REPLACED BY [facility] Last Admin: 08/30/17 20:39 Dose: 1 applic Lisinopril (Prinivil) 5 mg PO DAILY REPLACED BY [facility] Last Admin: 08/30/17 08:21 Dose: 5 mg Lorazepam (Ativan) 0.5 mg PO Q6H PRN PRN Reason: Extreme agitation Lorazepam (Ativan Inj) 0.5 mg IM Q6H PRN PRN Reason: Extreme agitation Methylprednisolone Sodium Succinate (Solu-Medrol) 125 mg IVP PRN PRN PRN Reason: FOR HYPERSENTIVITY REACTION Metoprolol Succinate (Toprol Xl) 25 mg PO DAILY REPLACED BY [facility] Last Admin: 08/30/17 08:21 Dose: 25 mg Morphine Sulfate (Roxanol Oral Liq) 2 mg SL Q2H PRN PRN Reason: Pain Last Admin: 08/30/17 20:45 Dose: 2 mg Multivitamins (Theragran) 1 tab PO DAILY REPLACED BY [facility] Last Admin: 08/30/17 08:21 Dose: 1 tab Nicotine (Nicoderm) 14 mg TD DAILY REPLACED BY [facility] Last Admin: 08/30/17 08:21 Dose: 14 mg Nicotine (Nicotine Patch Removal) 1 removal TD DAILY REPLACED BY [facility] Last Admin: 08/30/17 11:52 Dose: 1 removal Omeprazole (Prilosec) 20 mg PO ACB REPLACED BY [facility] Last Admin: 08/30/17 05:57 Dose: 20 mg Ondansetron HCl (Zofran Po) 4 mg PO Q6H PRN PRN Reason: Nausea &/or vomiting Last Admin: 08/30/17 14:56 Dose: 4 mg Oxycodone HCl (Roxicodone *Ir*) 5 mg PO Q3H PRN PRN Reason: Pain Last Admin: 08/30/17 18:25 Dose: 5 mg Polyethylene Glycol (Miralax) 17 gm PO DAILY PRN PRN Reason: CONSTIPATION Last Admin: 08/30/17 09:10 Dose: 17 gm Ranitidine HCl (Zantac) 150 mg PO DAILY REPLACED BY [facility] Last Admin: 08/30/17 08:22 Dose: 150 mg Tiotropium [place] (Spiriva) 1 cap ORAL INH DAILY REPLACED BY [facility] Last Admin: 08/29/17 09:53 Dose: 1 cap Subjective: Patient seen and chart reviewed. Case discussed with treatment team. On interview, patient is cooperative but ruminative. He says he feels very fatigued after getting chemo today. Patient denies HI or AVH. He continues to endorse SI if he were to have to return to his living situation with his daughter. Patient denies any adverse side effects related to psychotropic medications but feels he needs a higher dose of antidepressant. Nursing staff report patient has not had any significant behavioral difficulties but has reported ongoing pain. Patient has been adherent with medications. Patient slept 5 hours overnight. VSS. Patient is eating well. Psychotropic PRNs required in the past 24 hours: none. Start Time: 18:20 Stop Time: 18:40 Mental Status Exam Vitals: Last Vital Signs Temp 97.1 F 08/30/17 16:00 Pulse 75 08/30/17 16:00 Resp 16 08/30/17 16:00 BP 95/67 08/30/17 16:00 Pulse Ox 96 08/30/17 16:00 Height: 1.78 m Weight: 89.3 kg - Mental Status Exam Muscle Strength/Tone: Normal Dressing: Casual Grooming: Good Attitude: Cooperative Motor Activity: Normal Eye Contact: Good Speech: Normal Volume: Normal Rhythm: Appropriate Rhythm Sensory: Alert Orientation: Oriented X4 Mood: Depressed Affect: Sad Rate of Thoughts: Appropriate Rate Thought Organization: Organized Associations: Intact Abstract Reasoning: Intact, able to abstract Computation: Intact Thought Content: Hopelessness, Helplessness Perception/Psychotic: Perception Normal Language: Naming Intact Fund of Knowledge: Appropriate Memory: Grossly Intact Suicidal Ideation: Intermittent (plan to overdose if had to return to living situation) Homicidal Ideation: Denies Insight: Limited Judgement: Limited Impulse Control: Fair - Laboratory Result Diagrams: 08/30/17 07:46 08/30/17 07:46 Laboratory Results - last 24 hr 08/29/17 08/30/17 08/30/17 20:58 07:46 07:46 WBC 10.4 RBC 5.36 Hgb 15.6 Hct 47.2 MCV 88.1 MCH 29.1 MCHC 33.1 RDW Std Deviation 44.3 Plt Count 244 MPV 9.7 Immature Gran % (Auto) 0.2 Neut % (Auto) 78.2 H Lymph % (Auto) 13.0 L Ward % (Auto) 8.0 Eos % (Auto) 0.4 Baso % (Auto) 0.2 Neut # (Auto) 8.1 H Lymph # (Auto) 1.4 Ward # (Auto) 0.8 Eos # (Auto) 0.0 Baso # (Auto) 0.0 Abs Immat Gran (auto) 0.02 Turbidity < 20 Sodium 136 Potassium 4.3 Chloride 97 L Carbon Dioxide 28 Anion Gap 11 BUN 17.0 Creatinine 0.7 L GFR Calculation 114 BUN/Creatinine Ratio 24 Glucose 101 Glucometer 138 Calculated Osmolality 264 Calcium 9.9 Magnesium 2.0 Total Bilirubin 0.70 Icterus Index < 2 AST 20 ALT 29 Alkaline Phosphatase 74 Lactate Dehydrogenase 405 Total Protein 7.6 Albumin 4.6 Globulin 3.0 Albumin/Globulin Ratio 1.5 Specimen Hemolysis < 15 08/30/17 08/30/17 10:06 14:46 WBC RBC Hgb Hct MCV MCH MCHC RDW Std Deviation Plt Count MPV Immature Gran % (Auto) Neut % (Auto) Lymph % (Auto) Ward % (Auto) Eos % (Auto) Baso % (Auto) Neut # (Auto) Lymph # (Auto) Ward # (Auto) Eos # (Auto) Baso # (Auto) Abs Immat Gran (auto) Turbidity Sodium Potassium Chloride Carbon Dioxide Anion Gap BUN Creatinine GFR Calculation BUN/Creatinine Ratio Glucose Glucometer 110 115 Calculated Osmolality Calcium Magnesium Total Bilirubin Icterus Index AST ALT Alkaline Phosphatase Lactate Dehydrogenase Total Protein Albumin Globulin Albumin/Globulin Ratio Specimen Hemolysis Assessment and Plan (1) Major depress dis, severe Current visit: Yes Status: Acute (2) Lymphoma Current visit: Yes Status: Chronic Increase Wellbutrin SR to 150mg PO BID (0800, 1400 - must be 6 hours apart). Hospitalist is planning to scheduled pain medication. Hospital Course Summary Disclaimer: The visit summary below is not to be considered part of the above Progress Note. Hospital Course: Plan - 08/27/17 Agree with admission to [facility] under the care of Dr. Richards and team. Hospitalist service consulted for medical management. Admission labs were unremarkable. Will monitor periodically throughout admission. History of lymphoma which patient reports is terminal and currently undergoing chemotherapy per Dr. Samaniego. Consult Dr. Samaniego for oncology maintenance. Monitor blood sugars closely and continue home Jardiance. Continue home blood pressure medications - lisinopril and metoprolol. Monitor blood pressure and heart rate closely. Continue home breathing treatments. DuoNeb treatments PRN. Use of oxygen at night at 4L and during the day as needed. Goal pulse ox between 90-95%. Continue home prilosec and zantac for GERD and GI protection. Nicotine patch for tobacco dependency. Will consult RT for smoking cessation counseling. Patient may take home medications. Continue bowel motivation given narcotic pain control. Case management to work with patient on finding safe place upon discharge. Upon discharge, patient's care will be returned to his PCP. 08/29/2017 Pt doing better. Mood symptoms primarily situational. Consider switching Wellbutrin to XL version Plan - 08/29/17 Overall, Brigido is doing well. Does continue to express stressors re: his terminal malignancy and his living situation. Offered support, encouraged him to continue to F/U with SW team. He remains very uncomfortable with the prospect of living with his oldest daughter. Not willing to return there. BP, BG are well controlled. Continue current. Continue Nocturnal O2. RT reported that pt. needed some adjustments to his inhalers, which I made earlier today. Continue supportive care. Dr. Samaniego following. Labs, documentation, imaging reviewed. 08/30/17 Psych: Increase Wellbutrin SR to 150mg PO BID (0800, 1400 - must be 6 hours apart). Hospitalist is planning to scheduled pain medication.
[2017-08-31] MEDS: Oxycodone *IR* 5 MG TABLET PO PRN ×3 (01:03→07:54)
[2017-08-31] MEDS: TIOTROPIUM 18mcg/cap HANDIHALER ORAL INH SCH ×2 (02:00→09:37)
[2017-08-31] MEDS: MORPHINE SULFATE 10mg/0.5ml ORAL LIQ SL PRN ×7 (04:07→23:02)
[2017-08-31] MEDS: OMEPRAZOLE 20 MG CAPSULE PO SCH (06:36)
[2017-08-31] MEDS: GABAPENTIN 300 MG CAPSULE PO SCH ×4 (08:23→20:00)
[2017-08-31] MEDS: ASCORBIC ACID 500 MG TABLET PO SCH (08:23)
[2017-08-31] MEDS: RANITIDINE 150 MG TABLET PO SCH (08:23)
[2017-08-31] MEDS: Bisacodyl EC TAB 5 MG TABLET PO SCH (08:23)
[2017-08-31] MEDS: BuPROPion SR 150mg (12HR) TABLET PO SCH ×2 (08:23→13:48)
[2017-08-31] MEDS: MULTI-VITAMIN PLAIN TABLET PO SCH (08:23)
[2017-08-31] MEDS: LISINOPRIL 5 MG TABLET PO SCH (08:23)
[2017-08-31] MEDS: EMPAGLIFLOZIN 10 MG TABLET PO SCH (08:24)
[2017-08-31] MEDS: NICOTINE 14 MG PATCH TD SCH (08:26)
[2017-08-31] MEDS: POLYETHYL GLYCOL 3350 17gm PACKET PO PRN (08:29)
[2017-08-31] MEDS: ASPIRIN 325 MG TABLET PO SCH (09:24)
[2017-08-31] MEDS: NICOTINE PATCH REMOVAL TD SCH (09:35)
[2017-08-31] MEDS: Oxycodone *IR* 5 MG TABLET PO SCH ×5 (11:02→23:02)
[2017-08-31] MEDS: ALBUTEROL 2.5mg/3ml (0.083%) NEB AEROSOL SCH (11:30)
--- NOTE | 2017-08-31 14:34 | Progress Note ---
- Date 08/31/17 Subjective: Patient is seen today sitting at the breakfast table. He has been requesting that he get his pain medications routinely, as getting them when necessary is not keeping his pain under control. He would also like his MiraLAX to be scheduled as he struggles with constipation. Would also like blood sugars not be ordered 4 times a day. He is not on insulin. Blood sugars have been good. He has complained that he has not been getting enough to eat. Because he is a cancer patient and is terminal, he would like to eat now that he is feeling well. He is currently on controlled carbohydrate diet. Nurse confirms the patient is getting about half the food that other people having been getting on their plate. Objective Vital signs: Temperature 97.4 F 08/31/17 07:15 Pulse Rate 76 08/31/17 07:15 Respiratory Rate 16 08/31/17 11:30 Blood Pressure 113/71 08/31/17 07:15 Pulse Oximetry 93 08/31/17 07:15 Height/Weight/BMI: Height 1.78 m Weight 89.3 kg Body Mass Index 28.2 - Constitutional Present: no acute distress, well nourished, well developed - Routine HEENT Exam Head: Present: normocephalic, atraumatic - Routine Respiratory Exam Present: CTA bilaterally. Absent: wheezes - Routine Cardiovascular Exam Present: RRR, no murmur - Routine Abdominal Exam Present: soft, non distended, non tender - Routine Extremities Exam Present: no edema, normal capillary refill - Routine Skin Exam Present: dry, warm - Routine Neurological Exam Present: alert, oriented X3 - Routine Lymphatic Exam Lymphatic: Absent: adenopathy - Routine Psychiatric Exam Present: normal affect, cooperative Results - Labs CBC & Chem 7: 08/30/17 07:46 08/30/17 07:46 Assessment and Plan (1) Depression Current visit: Yes Status: Acute (2) Lymphoma Current visit: Yes Status: Chronic Assessment and Plan: Assessment Major depressive disorder with suicidal ideation. Lymphoma -follows with Dr. Samaniego. Diastolic congestive heart failure. CAD. Hypertension. History of [place]. COPD. Nocturnal home oxygen dependency at 4L. Sleep apnea. History of TIA. Tobacco dependency. Diabetes Mellitus Type 2. GERD. IBS. History of DVT. Vitamine D deficiency. Immunosuppression secondary to current chemotherapy. Chronic pain. Constipation. Plan Change Accu-Cheks to fasting daily. Will let him have a normal diet given his terminal illness. Tight blood sugar control is not an issue at this point. Oxycodone was changed from PRN to scheduled. MiraLAX changed from PRN to scheduled as well. Labs, vitals, chart reviewed. - Physician Narrative Narrative: Date: 08/31/17 Time: 1430 Hospital Course Summary Disclaimer: The visit summary below is not to be considered part of the above Progress Note. Hospital Course: Plan - 08/27/17 Agree with admission to [facility] under the care of Dr. Richards and team. Hospitalist service consulted for medical management. Admission labs were unremarkable. Will monitor periodically throughout admission. History of lymphoma which patient reports is terminal and currently undergoing chemotherapy per Dr. Samaniego. Consult Dr. Samaniego for oncology maintenance. Monitor blood sugars closely and continue home Jardiance. Continue home blood pressure medications - lisinopril and metoprolol. Monitor blood pressure and heart rate closely. Continue home breathing treatments. DuoNeb treatments PRN. Use of oxygen at night at 4L and during the day as needed. Goal pulse ox between 90-95%. Continue home prilosec and zantac for GERD and GI protection. Nicotine patch for tobacco dependency. Will consult RT for smoking cessation counseling. Patient may take home medications. Continue bowel motivation given narcotic pain control. Case management to work with patient on finding safe place upon discharge. Upon discharge, patient's care will be returned to his PCP. 08/29/2017 Pt doing better. Mood symptoms primarily situational. Consider switching Wellbutrin to XL version Plan - 08/29/17 Overall, Brigido is doing well. Does continue to express stressors re: his terminal malignancy and his living situation. Offered support, encouraged him to continue to F/U with SW team. He remains very uncomfortable with the prospect of living with his oldest daughter. Not willing to return there. BP, BG are well controlled. Continue current. Continue Nocturnal O2. RT reported that pt. needed some adjustments to his inhalers, which I made earlier today. Continue supportive care. Dr. Samaniego following. Labs, documentation, imaging reviewed.
--- NOTE | 2017-08-31 15:42 | Neuropsych Progress Note ---
[facility] Subjective Date: 08/31/17 - Sujective/Severity of Illness Medications: Albuterol Sulfate (Proventil Neb (0.083%)) 2.5 mg AEROSOL Q4H PRN PRN Reason: Shortness of air Albuterol Sulfate (Proventil Neb (0.083%)) 2.5 mg AEROSOL DAILY [facility] Last Admin: 08/31/17 11:30 Dose: 2.5 mg Ascorbic Acid (Vitamin C) 500 mg PO DAILY [facility] Last Admin: 08/31/17 08:23 Dose: 500 mg Aspirin (Asa) 650 mg PO DAILY [facility] Last Admin: 08/31/17 09:24 Dose: 650 mg Atorvastatin Calcium (Lipitor) 40 mg PO HS [facility] Last Admin: 08/30/17 20:38 Dose: 40 mg Bisacodyl (Dulcolax) 5 mg PO DAILY [facility] Last Admin: 08/31/17 08:23 Dose: 5 mg Budesonide/Formoterol Fumarate (Symbicort Inhaler) 2 puff ORAL INH RTBID [facility] Last Admin: 08/31/17 09:11 Dose: 2 puff Bupropion HCl (Wellbutrin Sr) 150 mg PO 08,14 [facility] Last Admin: 08/31/17 13:48 Dose: 150 mg Cholecalciferol (Vit. D-3) 2,000 unit PO DAILY [facility] Last Admin: 08/31/17 08:23 Dose: 2,000 unit Dicyclomine HCl (Bentyl) 10 mg PO DAILY PRN Diphenhydramine HCl (Benadryl) 50 mg IVP PRN PRN PRN Reason: FOR HYPERSENSITIVITY REACTION Empagliflozin (Jardiance) 10 mg PO DAILY [facility] Last Admin: 08/31/17 08:24 Dose: 10 mg Gabapentin (Neurontin) 300 mg PO QID [facility] Last Admin: 08/31/17 13:48 Dose: 300 mg Haloperidol (Haldol) 0.5 mg PO Q6H PRN PRN Reason: Extreme agitation Haloperidol Lactate (Haldol) 0.5 mg IM Q6H PRN PRN Reason: Extreme agitation Hydrocortisone Sodium Succinate (Solu-Cortef) 100 mg IVP PRN PRN PRN Reason: FOR HYPERSENTIVITY REACTION Ketoconazole (Nizoral 2% Cream) 1 applic TOP BID [facility] Last Admin: 08/31/17 09:25 Dose: 1 applic Lisinopril (Prinivil) 5 mg PO DAILY [facility] Last Admin: 08/31/17 08:23 Dose: 5 mg Lorazepam (Ativan) 0.5 mg PO Q6H PRN PRN Reason: Extreme agitation Last Admin: 08/30/17 22:18 Dose: 0.5 mg Lorazepam (Ativan Inj) 0.5 mg IM Q6H PRN PRN Reason: Extreme agitation Methylprednisolone Sodium Succinate (Solu-Medrol) 125 mg IVP PRN PRN PRN Reason: FOR HYPERSENTIVITY REACTION Metoprolol Succinate (Toprol Xl) 25 mg PO DAILY [facility] Last Admin: 08/31/17 08:24 Dose: 25 mg Mirtazapine (Remeron) 7.5 mg PO HS [facility] Morphine Sulfate (Roxanol Oral Liq) 2 mg SL Q2H PRN PRN Reason: Pain Last Admin: 08/31/17 13:48 Dose: 2 mg Multivitamins (Theragran) 1 tab PO DAILY [facility] Last Admin: 08/31/17 08:23 Dose: 1 tab Nicotine (Nicoderm) 14 mg TD DAILY [facility] Last Admin: 08/31/17 08:26 Dose: 14 mg Nicotine (Nicotine Patch Removal) 1 removal TD DAILY [facility] Last Admin: 08/31/17 09:35 Dose: 1 removal Omeprazole (Prilosec) 20 mg PO ACB [facility] Last Admin: 08/31/17 06:36 Dose: 20 mg Ondansetron HCl (Zofran Po) 4 mg PO Q6H PRN PRN Reason: Nausea &/or vomiting Last Admin: 08/30/17 14:56 Dose: 4 mg Oxycodone HCl (Roxicodone *Ir*) 5 mg PO Q3H [facility] Last Admin: 08/31/17 13:47 Dose: 5 mg Polyethylene Glycol (Miralax) 17 gm PO DAILY [facility] Ranitidine HCl (Zantac) 150 mg PO DAILY [facility] Last Admin: 08/31/17 08:23 Dose: 150 mg Tiotropium [place] (Spiriva) 1 cap ORAL INH DAILY [facility] Last Admin: 08/31/17 09:37 Dose: 1 cap Subjective: Patient seen and chart reviewed. Case discussed with treatment team. On interview, patient is cooperative but ruminative. He is really struggling with his relationship with his daughter (who he feels treated him poorly) as well as dying. Today is his [birth year] birthday. SW and his supportive daughter are looking into living options for him but insurance may be a barrier to many options. Patient denies HI or AVH. He continues to endorse SI if he were to have to return to his living situation with his daughter. Patient denies any adverse side effects related to psychotropic medications. Nursing staff report patient has not had any significant behavioral difficulties on the unit. Patient has been adherent with medications. Patient reports feeling like he was having difficulty sleeping because he was worried about dying. VSS. Patient is eating well. Psychotropic PRNs required in the past 24 hours: none. Start Time: 09:40 Stop Time: 10:00 Mental Status Exam Vitals: Last Vital Signs Temp 97.4 F 08/31/17 07:15 Pulse 76 08/31/17 07:15 Resp 16 08/31/17 11:30 BP 113/71 08/31/17 07:15 Pulse Ox 93 08/31/17 07:15 Height: 1.78 m Weight: 89.3 kg - Mental Status Exam Muscle Strength/Tone: Normal Dressing: Casual Grooming: Good Attitude: Cooperative Motor Activity: Normal Eye Contact: Good Speech: Normal Volume: Normal Rhythm: Appropriate Rhythm Orientation: Oriented X4 Mood: Depressed Affect: Sad Rate of Thoughts: Appropriate Rate Thought Organization: Organized Associations: Intact Abstract Reasoning: Intact, able to abstract Computation: Intact Thought Content: Hopelessness, Helplessness Perception/Psychotic: Perception Normal Language: Naming Intact Fund of Knowledge: Appropriate Memory: Grossly Intact Suicidal Ideation: Intermittent (plan to overdose if had to return to living situation) Homicidal Ideation: Denies Insight: Limited Judgement: Limited Impulse Control: Fair - Laboratory Result Diagrams: 08/30/17 07:46 08/30/17 07:46 Laboratory Results - last 24 hr 08/30/17 08/31/17 23:12 06:06 Glucometer 211 138 Assessment and Plan (1) Major depress dis, severe Current visit: Yes Status: Acute (2) Lymphoma Current visit: Yes Status: Chronic Wellbutrin increased today - monitor response. Will additionally start mirtazapine 7.5mg PO q HS to target sleep, appetite, mood and may help with malaise from chemo. Hospital Course Summary Disclaimer: The visit summary below is not to be considered part of the above Progress Note. Hospital Course: Plan - 08/27/17 Agree with admission to [facility] under the care of Dr. Richards and team. Hospitalist service consulted for medical management. Admission labs were unremarkable. Will monitor periodically throughout admission. History of lymphoma which patient reports is terminal and currently undergoing chemotherapy per Dr. Samaniego. Consult Dr. Samaniego for oncology maintenance. Monitor blood sugars closely and continue home Jardiance. Continue home blood pressure medications - lisinopril and metoprolol. Monitor blood pressure and heart rate closely. Continue home breathing treatments. DuoNeb treatments PRN. Use of oxygen at night at 4L and during the day as needed. Goal pulse ox between 90-95%. Continue home prilosec and zantac for GERD and GI protection. Nicotine patch for tobacco dependency. Will consult RT for smoking cessation counseling. Patient may take home medications. Continue bowel motivation given narcotic pain control. Case management to work with patient on finding safe place upon discharge. Upon discharge, patient's care will be returned to his PCP. 08/29/2017 Pt doing better. Mood symptoms primarily situational. Consider switching Wellbutrin to XL version Plan - 08/29/17 Overall, Brigido is doing well. Does continue to express stressors re: his terminal malignancy and his living situation. Offered support, encouraged him to continue to F/U with SW team. He remains very uncomfortable with the prospect of living with his oldest daughter. Not willing to return there. BP, BG are well controlled. Continue current. Continue Nocturnal O2. RT reported that pt. needed some adjustments to his inhalers, which I made earlier today. Continue supportive care. Dr. Samaniego following. Labs, documentation, imaging reviewed. 08/30/17 Psych: Increase Wellbutrin SR to 150mg PO BID (0800, 1400 - must be 6 hours apart). Hospitalist is planning to scheduled pain medication. 08/31/17 Psych: Wellbutrin increased today - monitor response. Will additionally start mirtazapine 7.5mg PO q HS to target sleep, appetite, mood and may help with malaise from chemo.
--- NOTE | 2017-08-31 17:17 | Progress Note ---
Oncology Subjective Doing fine. He tolerated chemotherapy carboplatin well. His mood improved. Depression improved. Exam Vital signs: Temperature 98.0 F 08/31/17 16:00 Pulse Rate 88 08/31/17 16:00 Respiratory Rate 16 08/31/17 16:00 Blood Pressure 124/88 08/31/17 16:00 Pulse Oximetry 95 08/31/17 16:00 - Constitutional no acute distress, cooperative - Routine Neck Exam Comments: Mild cervical adenopathy. - Routine Respiratory Exam Absent: rhonchi, wheezes, crackles - Routine Abdominal Exam Present: soft Oncology Results - Labs CBC & Chem 7: 08/30/17 07:46 08/30/17 07:46 Assessment and Plan Assessment and Plan: Assessment and plan 1. 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 2. Depression, improved. - Time Spent With Patient Total time spent is greater than 50% in coordination of care (as documented) at patient's floor/unit and/or counseling patient: less than 15 minutes
[2017-08-31] MEDS: ATORVASTATIN 40 MG TABLET PO SCH (20:01)
[2017-08-31] MEDS: MIRTAZAPINE 15 MG TABLET PO SCH (20:01)
[2017-09-01] MEDS: Oxycodone *IR* 5 MG TABLET PO SCH ×8 (01:52→22:44)
[2017-09-01] MEDS: MORPHINE SULFATE 10mg/0.5ml ORAL LIQ SL PRN ×5 (01:53→22:44)
[2017-09-01] MEDS: OMEPRAZOLE 20 MG CAPSULE PO SCH (06:13)
[2017-09-01] MEDS: POLYETHYL GLYCOL 3350 17gm PACKET PO SCH (08:04)
[2017-09-01] MEDS: BuPROPion SR 150mg (12HR) TABLET PO SCH ×2 (08:05→14:16)
[2017-09-01] MEDS: ASPIRIN 325 MG TABLET PO SCH (08:06)
[2017-09-01] MEDS: Bisacodyl EC TAB 5 MG TABLET PO SCH (08:06)
[2017-09-01] MEDS: ASCORBIC ACID 500 MG TABLET PO SCH (08:06)
[2017-09-01] MEDS: LISINOPRIL 5 MG TABLET PO SCH (08:07)
[2017-09-01] MEDS: EMPAGLIFLOZIN 10 MG TABLET PO SCH (08:07)
[2017-09-01] MEDS: GABAPENTIN 300 MG CAPSULE PO SCH ×4 (08:07→20:04)
[2017-09-01] MEDS: MULTI-VITAMIN PLAIN TABLET PO SCH (08:08)
[2017-09-01] MEDS: NICOTINE 14 MG PATCH TD SCH (08:08)
[2017-09-01] MEDS: NICOTINE PATCH REMOVAL TD SCH (08:10)
[2017-09-01] MEDS: RANITIDINE 150 MG TABLET PO SCH (08:11)
[2017-09-01] MEDS: ALBUTEROL 2.5mg/3ml (0.083%) NEB AEROSOL SCH (08:55)
[2017-09-01] MEDS: TIOTROPIUM 18mcg/cap HANDIHALER ORAL INH SCH (09:26)
[2017-09-01] MEDS ORDERED: SALINE FLUSH 10ml SYRINGE IV PRN (10:05)
--- NOTE | 2017-09-01 15:05 | Progress Note ---
- Date 09/01/17 Subjective: Brigido is seen today in his room, having just finished in the bathroom. His affect is brighter today and he admits to feeling better. He denies any concerns or complaints including no chest pain, shortness of breath, abdominal pain, nausea, vomiting or dysuria. His appetite is good and he has requested more food now that his appetite has improved. His bowels are moving. He was seen and evaluated by Dr. Fleming (onc) and was able to tolerate his weekly chemotherapy with carboplatin well, which he takes for his recurrent squamous cell carcinoma of the neck. His depression seems to be improving and he denies any SI/HI. He continues to emotionally struggle with his relationship with his daughter whom he feels has treated him poorly as well as dying. Repeat labs on were unremarkable and blood sugars remain stable. Overall, he appears to be doing better and making gains. Objective Vital signs: Temperature 97.1 F 09/01/17 08:00 Pulse Rate 75 09/01/17 08:00 Respiratory Rate 14 09/01/17 09:10 Blood Pressure 115/73 09/01/17 08:00 Pulse Oximetry 95 09/01/17 08:55 Height/Weight/BMI: Height 5 ft 10 in Weight 196 lb 13.965 oz Body Mass Index 28.2 - Constitutional Present: no acute distress, well nourished, well developed, cooperative - Routine HEENT Exam Head: Present: normocephalic, atraumatic Eye: Present: PERRL. Absent: conjunctival icterus ENT: Present: mucous membranes moist - Routine Respiratory Exam Present: CTA bilaterally. Absent: rales, respiratory distress, rhonchi, stridor , wheezes, crackles - Routine Cardiovascular Exam Present: RRR, S1, S2 - Routine Abdominal Exam Present: soft, normoactive bowel sounds, non distended, non tender - Routine Extremities Exam Present: no edema, full ROM, pulses intact - Routine Back/Spine/Pelvis Exam Back/Spine: Present: full ROM. Absent: vertebral tenderness - Routine Musculoskeletal Exam Musculoskeletal: Present: moving extremities well - Routine Skin Exam Present: dry, warm. Absent: jaundice Comments: afebrile - Routine Neurological Exam Present: alert, oriented X3, moving all extremities, hearing grossly intact, normal speech. Absent: facial asymmetry - Routine Lymphatic Exam Lymphatic: Absent: lymphedema - Routine Psychiatric Exam Present: cooperative Results - Labs CBC & Chem 7: 08/30/17 07:46 08/30/17 07:46 Assessment and Plan (1) Depression Current visit: Yes Status: Acute (2) Lymphoma Current visit: Yes Status: Chronic Assessment and Plan: Assessment Major depressive disorder with suicidal ideation. Lymphoma -follows with Dr. Samaniego. Diastolic congestive heart failure. CAD. Hypertension. History of [place]. COPD. Nocturnal home oxygen dependency at 4L. Sleep apnea. History of TIA. Tobacco dependency. Diabetes Mellitus Type 2. GERD. IBS. History of DVT. Vitamine D deficiency. Immunosuppression secondary to current chemotherapy. Chronic pain. Constipation. Plan - 09/01/17 Overall, Brigido appears to be doing better. His mood is improving and he denies SI/HI. He continues to struggle with insomnia. Continue psychiatric care per Dr. Richards and team. Continue to provide safe and supportive environment. His appetite has improved and he is wanting to eat more. Diet was changed to regular as maintaining tight blood sugar control is not paramount. Blood sugars remain stable. Continue pain medications as directed. He was seen and evaluated by Dr. Fleming and tolerated his weekly chemotherapy with carboplatin well. Appreciate Dr. Fleming's time and expertise. Continue with bowel motivation given pain control with opioids. Will recheck labs on 09/06 to monitor blood counts, electrolytes and renal function. GI Prophylaxis: Rantidine Resuscitation Status: Full Code - Time spent with patient Time with patient PN: 25 minutes - Physician Narrative Physician: Mónica Bailon MD Narrative: Date: 09/01/17 Time: 5225 Hospital Course Summary Disclaimer: The visit summary below is not to be considered part of the above Progress Note. Hospital Course: Plan - 08/27/17 Agree with admission to [facility] under the care of Dr. Richards and team. Hospitalist service consulted for medical management. Admission labs were unremarkable. Will monitor periodically throughout admission. History of lymphoma which patient reports is terminal and currently undergoing chemotherapy per Dr. Samaniego. Consult Dr. Samaniego for oncology maintenance. Monitor blood sugars closely and continue home Jardiance. Continue home blood pressure medications - lisinopril and metoprolol. Monitor blood pressure and heart rate closely. Continue home breathing treatments. DuoNeb treatments PRN. Use of oxygen at night at 4L and during the day as needed. Goal pulse ox between 90-95%. Continue home prilosec and zantac for GERD and GI protection. Nicotine patch for tobacco dependency. Will consult RT for smoking cessation counseling. Patient may take home medications. Continue bowel motivation given narcotic pain control. Case management to work with patient on finding safe place upon discharge. Upon discharge, patient's care will be returned to his PCP. 08/29/2017 Pt doing better. Mood symptoms primarily situational. Consider switching Wellbutrin to XL version Plan - 08/29/17 Overall, Brigido is doing well. Does continue to express stressors re: his terminal malignancy and his living situation. Offered support, encouraged him to continue to F/U with SW team. He remains very uncomfortable with the prospect of living with his oldest daughter. Not willing to return there. BP, BG are well controlled. Continue current. Continue Nocturnal O2. RT reported that pt. needed some adjustments to his inhalers, which I made earlier today. Continue supportive care. Dr. Samaniego following. Labs, documentation, imaging reviewed. 08/30/17 Psych: Increase Wellbutrin SR to 150mg PO BID (0800, 1400 - must be 6 hours apart). Hospitalist is planning to scheduled pain medication. 08/31/17 Psych: Wellbutrin increased today - monitor response. Will additionally start mirtazapine 7.5mg PO q HS to target sleep, appetite, mood and may help with malaise from chemo. Plan - 09/01/17 Overall, Brigido appears to be doing better. His mood is improving and he denies SI/HI. He continues to struggle with insomnia. Continue psychiatric care per Dr. Richards and team. Continue to provide safe and supportive environment. His appetite has improved and he is wanting to eat more. Diet was changed to regular as maintaining tight blood sugar control is not paramount. Blood sugars remain stable. Continue pain medications as directed. He was seen and evaluated by Dr. Fleming and tolerated his weekly chemotherapy with carboplatin well. Appreciate Dr. Fleming's time and expertise. Continue with bowel motivation given pain control with opioids. Will recheck labs on 09/06 to monitor blood counts, electrolytes and renal function.
--- NOTE | 2017-09-01 16:20 | Neuropsych Progress Note ---
[facility] Subjective Date: 09/02/17 - Sujective/Severity of Illness Medications: Albuterol Sulfate (Proventil Neb (0.083%)) 2.5 mg AEROSOL Q4H PRN PRN Reason: Shortness of air Albuterol Sulfate (Proventil Neb (0.083%)) 2.5 mg AEROSOL DAILY [facility] Last Admin: 09/01/17 08:55 Dose: 2.5 mg Ascorbic Acid (Vitamin C) 500 mg PO DAILY [facility] Last Admin: 09/01/17 08:06 Dose: 500 mg Aspirin (Asa) 650 mg PO DAILY [facility] Last Admin: 09/01/17 08:06 Dose: 650 mg Atorvastatin Calcium (Lipitor) 40 mg PO HS [facility] Last Admin: 08/31/17 20:01 Dose: 40 mg Bisacodyl (Dulcolax) 5 mg PO DAILY [facility] Last Admin: 09/01/17 08:06 Dose: 5 mg Budesonide/Formoterol Fumarate (Symbicort Inhaler) 2 puff ORAL INH RTBID [facility] Last Admin: 09/01/17 09:26 Dose: 2 puff Bupropion HCl (Wellbutrin Sr) 150 mg PO 08,14 [facility] Last Admin: 09/01/17 14:16 Dose: 150 mg Cholecalciferol (Vit. D-3) 2,000 unit PO DAILY [facility] Last Admin: 09/01/17 08:06 Dose: 2,000 unit Dicyclomine HCl (Bentyl) 10 mg PO DAILY PRN Diphenhydramine HCl (Benadryl) 50 mg IVP PRN PRN PRN Reason: FOR HYPERSENSITIVITY REACTION Empagliflozin (Jardiance) 10 mg PO DAILY [facility] Last Admin: 09/01/17 08:07 Dose: 10 mg Gabapentin (Neurontin) 300 mg PO QID [facility] Last Admin: 09/01/17 12:22 Dose: 300 mg Haloperidol (Haldol) 0.5 mg PO Q6H PRN PRN Reason: Extreme agitation Haloperidol Lactate (Haldol) 0.5 mg IM Q6H PRN PRN Reason: Extreme agitation Heparin Sodium (Beef Lung) (Heparin Flush) 500 unit IV PRN PRN Last Admin: 09/01/17 10:06 Dose: 500 unit Hydrocortisone Sodium Succinate (Solu-Cortef) 100 mg IVP PRN PRN PRN Reason: FOR HYPERSENTIVITY REACTION Ketoconazole (Nizoral 2% Cream) 1 applic TOP BID [facility] Last Admin: 09/01/17 08:07 Dose: 1 applic Lisinopril (Prinivil) 5 mg PO DAILY [facility] Last Admin: 09/01/17 08:07 Dose: 5 mg Lorazepam (Ativan) 0.5 mg PO Q6H PRN PRN Reason: Extreme agitation Last Admin: 08/30/17 22:18 Dose: 0.5 mg Lorazepam (Ativan Inj) 0.5 mg IM Q6H PRN PRN Reason: Extreme agitation Methylprednisolone Sodium Succinate (Solu-Medrol) 125 mg IVP PRN PRN PRN Reason: FOR HYPERSENTIVITY REACTION Metoprolol Succinate (Toprol Xl) 25 mg PO DAILY [facility] Last Admin: 09/01/17 08:08 Dose: 25 mg Mirtazapine (Remeron) 7.5 mg PO HS [facility] Last Admin: 08/31/17 20:01 Dose: 7.5 mg Morphine Sulfate (Roxanol Oral Liq) 2 mg SL Q2H PRN PRN Reason: Pain Last Admin: 09/01/17 14:13 Dose: 2 mg Multivitamins (Theragran) 1 tab PO DAILY [facility] Last Admin: 09/01/17 08:08 Dose: 1 tab Nicotine (Nicoderm) 14 mg TD DAILY [facility] Last Admin: 09/01/17 08:08 Dose: 14 mg Nicotine (Nicotine Patch Removal) 1 removal TD DAILY [facility] Last Admin: 09/01/17 08:10 Dose: 1 removal Omeprazole (Prilosec) 20 mg PO ACB [facility] Last Admin: 09/01/17 06:13 Dose: 20 mg Ondansetron HCl (Zofran Po) 4 mg PO Q6H PRN PRN Reason: Nausea &/or vomiting Last Admin: 08/30/17 14:56 Dose: 4 mg Oxycodone HCl (Roxicodone *Ir*) 5 mg PO Q3H [facility] Last Admin: 09/01/17 14:11 Dose: 5 mg Polyethylene Glycol (Miralax) 17 gm PO DAILY [facility] Last Admin: 09/01/17 08:04 Dose: 17 gm Ranitidine HCl (Zantac) 150 mg PO DAILY [facility] Last Admin: 09/01/17 08:11 Dose: 150 mg Sodium Chloride (Iv Flush) 10 - 80 ml IV PRN PRN PRN Reason: Flushing Last Admin: 09/01/17 10:06 Dose: 10 ml Tiotropium [place] (Spiriva) 1 cap ORAL INH DAILY [facility] Last Admin: 09/01/17 09:26 Dose: 1 cap Subjective: Patient seen and chart reviewed. Case discussed with treatment team. On interview, patient is cooperative but ruminative. He is really struggling with his relationship with his daughter, the future, the dying process, etc. SW and his supportive daughter are looking into living options for him but insurance may be a barrier to many options. Patient denies HI or AVH. He continues to endorse SI if he were to have to return to his living situation with his daughter. Patient denies any adverse side effects related to psychotropic medications. Nursing staff report patient has not had any significant behavioral difficulties on the unit. Patient has been adherent with medications. Patient reports having much more restful sleep since starting mirtazapine. VSS. Patient is eating well. Psychotropic PRNs required in the past 24 hours: none. Start Time: 09:20 Stop Time: 09:40 Mental Status Exam Vitals: Last Vital Signs Temp 98.1 F 09/01/17 15:44 Pulse 73 09/01/17 15:44 Resp 16 09/01/17 15:44 BP 105/78 09/01/17 15:44 Pulse Ox 95 09/01/17 15:44 Height: 1.78 m Weight: 89.3 kg - Mental Status Exam Muscle Strength/Tone: Normal Dressing: Casual Grooming: Good Attitude: Cooperative Motor Activity: Normal Eye Contact: Good Speech: Normal Volume: Normal Rhythm: Appropriate Rhythm Orientation: Oriented X4 Mood: Depressed Affect: Sad Rate of Thoughts: Appropriate Rate Thought Organization: Organized Associations: Intact Abstract Reasoning: Intact, able to abstract Computation: Intact Thought Content: Hopelessness, Helplessness Perception/Psychotic: Perception Normal Language: Naming Intact Fund of Knowledge: Appropriate Memory: Grossly Intact Suicidal Ideation: Intermittent (plan to overdose if had to return to living situation) Homicidal Ideation: Denies Insight: Limited Judgement: Limited Impulse Control: Fair - Laboratory Result Diagrams: 08/30/17 07:46 08/30/17 07:46 Laboratory Results - last 24 hr 08/31/17 10:11 Glucometer 126 Assessment and Plan (1) Major depress dis, severe Current visit: Yes Status: Acute (2) Lymphoma Current visit: Yes Status: Chronic Continue current care - looking into high school social studies teacher as far as options after discharge. I believe patient would still be a danger to himself if not in the hospital. APS report filed in regards to his family stealing his pain medications to treat his cancer pain etc. Hospital Course Summary Disclaimer: The visit summary below is not to be considered part of the above Progress Note. Hospital Course: Plan - 08/27/17 Agree with admission to [facility] under the care of Dr. Richards and team. Hospitalist service consulted for medical management. Admission labs were unremarkable. Will monitor periodically throughout admission. History of lymphoma which patient reports is terminal and currently undergoing chemotherapy per Dr. Samaniego. Consult Dr. Samaniego for oncology maintenance. Monitor blood sugars closely and continue home Jardiance. Continue home blood pressure medications - lisinopril and metoprolol. Monitor blood pressure and heart rate closely. Continue home breathing treatments. DuoNeb treatments PRN. Use of oxygen at night at 4L and during the day as needed. Goal pulse ox between 90-95%. Continue home prilosec and zantac for GERD and GI protection. Nicotine patch for tobacco dependency. Will consult RT for smoking cessation counseling. Patient may take home medications. Continue bowel motivation given narcotic pain control. Case management to work with patient on finding safe place upon discharge. Upon discharge, patient's care will be returned to his PCP. 08/29/2017 Pt doing better. Mood symptoms primarily situational. Consider switching Wellbutrin to XL version Plan - 08/29/17 Overall, Brigido is doing well. Does continue to express stressors re: his terminal malignancy and his living situation. Offered support, encouraged him to continue to F/U with SW team. He remains very uncomfortable with the prospect of living with his oldest daughter. Not willing to return there. BP, BG are well controlled. Continue current. Continue Nocturnal O2. RT reported that pt. needed some adjustments to his inhalers, which I made earlier today. Continue supportive care. Dr. Samaniego following. Labs, documentation, imaging reviewed. 08/30/17 Psych: Increase Wellbutrin SR to 150mg PO BID (0800, 1400 - must be 6 hours apart). Hospitalist is planning to scheduled pain medication. 08/31/17 Psych: Wellbutrin increased today - monitor response. Will additionally start mirtazapine 7.5mg PO q HS to target sleep, appetite, mood and may help with malaise from chemo. Plan - 09/01/17 Overall, Brigido appears to be doing better. His mood is improving and he denies SI/HI. He continues to struggle with insomnia. Continue psychiatric care per Dr. Richards and team. Continue to provide safe and supportive environment. His appetite has improved and he is wanting to eat more. Diet was changed to regular as maintaining tight blood sugar control is not paramount. Blood sugars remain stable. Continue pain medications as directed. He was seen and evaluated by Dr. Fleming and tolerated his weekly chemotherapy with carboplatin well. Appreciate Dr. Fleming's time and expertise. Continue with bowel motivation given pain control with opioids. Will recheck labs on 09/06 to monitor blood counts, electrolytes and renal function. 09/01/17 Psych: Continue current care - looking into high school social studies teacher as far as options after discharge. I believe patient would still be a danger to himself if not in the hospital. APS report filed in regards to his family stealing his pain medications to treat his cancer pain etc.
--- NOTE | 2017-09-01 18:38 | Progress Note ---
Oncology Subjective Tolerated chemotherapy well. Daughter is found a house. We'll continue supportive care. Less depressed. Exam Vital signs: Temperature 98.1 F 09/01/17 15:44 Pulse Rate 73 09/01/17 15:44 Respiratory Rate 16 09/01/17 15:44 Blood Pressure 105/78 09/01/17 15:44 Pulse Oximetry 95 09/01/17 15:44 - Constitutional no acute distress - Routine HEENT Exam Head: Present: normocephalic - Routine Neck Exam Present: supple - Routine Respiratory Exam Present: decreased breath sounds. Absent: accessory muscle use - Routine Cardiovascular Exam Present: RRR, no murmur - Routine Abdominal Exam Present: soft, tenderness (left lateral high abdomen), non distended - Routine Extremities Exam Present: no edema. Absent: cyanosis, clubbing - Routine Skin Exam Present: dry, warm - Routine Neurological Exam Present: alert, CN II-XII intact - Routine Psychiatric Exam Present: normal affect Oncology Results - Labs CBC & Chem 7: 08/30/17 07:46 08/30/17 07:46 Assessment and Plan Assessment and Plan: Assessment and plan 1. 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 Last chemotherapy on 08/30/17. Tolerating well 2. Depression. Currently improved 3. Bone metastasis - Time Spent With Patient Total time spent is greater than 50% in coordination of care (as documented) at patient's floor/unit and/or counseling patient: less than 15 minutes
[2017-09-01] MEDS: MIRTAZAPINE 15 MG TABLET PO SCH (20:05)
[2017-09-01] MEDS: ATORVASTATIN 40 MG TABLET PO SCH (20:05)
[2017-09-02] MEDS: Oxycodone *IR* 5 MG TABLET PO SCH ×8 (01:45→23:05)
[2017-09-02] MEDS: MORPHINE SULFATE 10mg/0.5ml ORAL LIQ SL PRN ×6 (01:45→20:27)
[2017-09-02] MEDS: TIOTROPIUM 18mcg/cap HANDIHALER ORAL INH SCH (07:33)
[2017-09-02] MEDS: ALBUTEROL 2.5mg/3ml (0.083%) NEB AEROSOL SCH (07:35)
[2017-09-02] MEDS: GABAPENTIN 300 MG CAPSULE PO SCH ×4 (08:14→20:28)
[2017-09-02] MEDS: ASCORBIC ACID 500 MG TABLET PO SCH (08:14)
[2017-09-02] MEDS: RANITIDINE 150 MG TABLET PO SCH (08:14)
[2017-09-02] MEDS: MULTI-VITAMIN PLAIN TABLET PO SCH (08:14)
[2017-09-02] MEDS: ASPIRIN 325 MG TABLET PO SCH (08:14)
[2017-09-02] MEDS: Bisacodyl EC TAB 5 MG TABLET PO SCH (08:14)
[2017-09-02] MEDS: BuPROPion SR 150mg (12HR) TABLET PO SCH ×2 (08:14→14:04)
[2017-09-02] MEDS: EMPAGLIFLOZIN 10 MG TABLET PO SCH (08:15)
[2017-09-02] MEDS: NICOTINE 14 MG PATCH TD SCH (08:16)
[2017-09-02] MEDS: LISINOPRIL 5 MG TABLET PO SCH (08:16)
[2017-09-02] MEDS: OMEPRAZOLE 20 MG CAPSULE PO SCH (08:17)
[2017-09-02] MEDS: NICOTINE PATCH REMOVAL TD SCH (08:17)
[2017-09-02] MEDS: POLYETHYL GLYCOL 3350 17gm PACKET PO SCH (08:18)
--- NOTE | 2017-09-02 18:41 | Neuropsych Progress Note ---
[facility] Subjective Date: 09/02/17 - Sujective/Severity of Illness Medications: Albuterol Sulfate (Proventil Neb (0.083%)) 2.5 mg AEROSOL Q4H PRN PRN Reason: Shortness of air Albuterol Sulfate (Proventil Neb (0.083%)) 2.5 mg AEROSOL DAILY [facility] Last Admin: 09/02/17 07:35 Dose: 2.5 mg Ascorbic Acid (Vitamin C) 500 mg PO DAILY [facility] Last Admin: 09/02/17 08:14 Dose: 500 mg Aspirin (Asa) 650 mg PO DAILY [facility] Last Admin: 09/02/17 08:14 Dose: 650 mg Atorvastatin Calcium (Lipitor) 40 mg PO HS [facility] Last Admin: 09/01/17 20:05 Dose: 40 mg Bisacodyl (Dulcolax) 5 mg PO DAILY [facility] Last Admin: 09/02/17 08:14 Dose: 5 mg Budesonide/Formoterol Fumarate (Symbicort Inhaler) 2 puff ORAL INH RTBID [facility] Last Admin: 09/02/17 10:42 Dose: 2 puff Bupropion HCl (Wellbutrin Sr) 150 mg PO 08,14 [facility] Last Admin: 09/02/17 14:04 Dose: 150 mg Cholecalciferol (Vit. D-3) 2,000 unit PO DAILY [facility] Last Admin: 09/02/17 08:14 Dose: 2,000 unit Dicyclomine HCl (Bentyl) 10 mg PO DAILY PRN Diphenhydramine HCl (Benadryl) 50 mg IVP PRN PRN PRN Reason: FOR HYPERSENSITIVITY REACTION Empagliflozin (Jardiance) 10 mg PO DAILY [facility] Last Admin: 09/02/17 08:15 Dose: 10 mg Gabapentin (Neurontin) 300 mg PO QID [facility] Last Admin: 09/02/17 16:48 Dose: 300 mg Haloperidol (Haldol) 0.5 mg PO Q6H PRN PRN Reason: Extreme agitation Haloperidol Lactate (Haldol) 0.5 mg IM Q6H PRN PRN Reason: Extreme agitation Heparin Sodium (Beef Lung) (Heparin Flush) 500 unit IV PRN PRN Last Admin: 09/01/17 10:06 Dose: 500 unit Hydrocortisone Sodium Succinate (Solu-Cortef) 100 mg IVP PRN PRN PRN Reason: FOR HYPERSENTIVITY REACTION Ketoconazole (Nizoral 2% Cream) 1 applic TOP BID [facility] Last Admin: 09/02/17 08:17 Dose: 1 applic Lisinopril (Prinivil) 5 mg PO DAILY [facility] Last Admin: 09/02/17 08:16 Dose: 5 mg Lorazepam (Ativan) 0.5 mg PO Q6H PRN PRN Reason: Extreme agitation Last Admin: 08/30/17 22:18 Dose: 0.5 mg Lorazepam (Ativan Inj) 0.5 mg IM Q6H PRN PRN Reason: Extreme agitation Methylprednisolone Sodium Succinate (Solu-Medrol) 125 mg IVP PRN PRN PRN Reason: FOR HYPERSENTIVITY REACTION Metoprolol Succinate (Toprol Xl) 25 mg PO DAILY [facility] Last Admin: 09/02/17 08:15 Dose: 25 mg Mirtazapine (Remeron) 7.5 mg PO HS [facility] Last Admin: 09/01/17 20:05 Dose: 7.5 mg Morphine Sulfate (Roxanol Oral Liq) 2 mg SL Q2H PRN PRN Reason: Pain Last Admin: 09/02/17 16:47 Dose: 2 mg Multivitamins (Theragran) 1 tab PO DAILY [facility] Last Admin: 09/02/17 08:14 Dose: 1 tab Nicotine (Nicoderm) 14 mg TD DAILY [facility] Last Admin: 09/02/17 08:16 Dose: 14 mg Nicotine (Nicotine Patch Removal) 1 removal TD DAILY [facility] Last Admin: 09/02/17 08:17 Dose: 1 removal Omeprazole (Prilosec) 20 mg PO ACB [facility] Last Admin: 09/02/17 08:17 Dose: 20 mg Ondansetron HCl (Zofran Po) 4 mg PO Q6H PRN PRN Reason: Nausea &/or vomiting Last Admin: 08/30/17 14:56 Dose: 4 mg Oxycodone HCl (Roxicodone *Ir*) 5 mg PO Q3H [facility] Last Admin: 09/02/17 16:48 Dose: 5 mg Polyethylene Glycol (Miralax) 17 gm PO DAILY [facility] Last Admin: 09/02/17 08:18 Dose: 17 gm Ranitidine HCl (Zantac) 150 mg PO DAILY [facility] Last Admin: 09/02/17 08:14 Dose: 150 mg Sodium Chloride (Iv Flush) 10 - 80 ml IV PRN PRN PRN Reason: Flushing Last Admin: 09/01/17 10:06 Dose: 10 ml Tiotropium [place] (Spiriva) 1 cap ORAL INH DAILY [facility] Last Admin: 09/02/17 07:33 Dose: 1 cap Subjective: Patient seen and chart reviewed. Case discussed with treatment team. On interview, patient is cooperative but ruminative. He is really struggling with his relationship with his daughter, the future, the dying process, etc. SW and his supportive daughter are looking into living options for him. He was tearful today after a care assessment and says he gets easily confused. He feels like he has to choose between being in pain or being pain-free but confused due to narcotics. He feels the med changes have been helpful and he has more energy during the day but also sleeps better at night. Patient denies HI or AVH. He continues to endorse SI if he were to have to return to his living situation with his daughter. Patient denies any adverse side effects related to psychotropic medications. Nursing staff report patient has not had any significant behavioral difficulties on the unit. Patient has been adherent with medications. Patient reports having much more restful sleep since starting mirtazapine. VSS. Patient is eating well. Psychotropic PRNs required in the past 24 hours: none. Start Time: 11:20 Stop Time: 11:40 Mental Status Exam Vitals: Last Vital Signs Temp 97.0 F 09/02/17 16:00 Pulse 73 09/02/17 16:00 Resp 18 09/02/17 16:00 BP 112/77 09/02/17 16:00 Pulse Ox 93 09/02/17 16:00 Height: 1.78 m Weight: 89.3 kg - Mental Status Exam Muscle Strength/Tone: Normal Dressing: Casual Grooming: Good Attitude: Cooperative Motor Activity: Normal Eye Contact: Good Speech: Normal Volume: Normal Rhythm: Appropriate Rhythm Orientation: Oriented X4 Mood: Depressed Affect: Sad, Tearful Rate of Thoughts: Appropriate Rate Thought Organization: Organized Associations: Intact Abstract Reasoning: Intact, able to abstract Computation: Intact Thought Content: Hopelessness, Helplessness Perception/Psychotic: Perception Normal Language: Naming Intact Fund of Knowledge: Appropriate Memory: Grossly Intact Suicidal Ideation: Intermittent (plan to overdose if had to return to living situation) Homicidal Ideation: Denies Insight: Limited Judgement: Limited Impulse Control: Fair - Laboratory Result Diagrams: 08/30/17 07:46 08/30/17 07:46 Assessment and Plan (1) Major depress dis, severe Current visit: Yes Status: Acute (2) Lymphoma Current visit: Yes Status: Chronic Continue current care; SW working with [facility] in regards to safe discharge plan. Hospital Course Summary Disclaimer: The visit summary below is not to be considered part of the above Progress Note. Hospital Course: Plan - 08/27/17 Agree with admission to [facility] under the care of Dr. Richards and team. Hospitalist service consulted for medical management. Admission labs were unremarkable. Will monitor periodically throughout admission. History of lymphoma which patient reports is terminal and currently undergoing chemotherapy per Dr. Samaniego. Consult Dr. Samaniego for oncology maintenance. Monitor blood sugars closely and continue home Jardiance. Continue home blood pressure medications - lisinopril and metoprolol. Monitor blood pressure and heart rate closely. Continue home breathing treatments. DuoNeb treatments PRN. Use of oxygen at night at 4L and during the day as needed. Goal pulse ox between 90-95%. Continue home prilosec and zantac for GERD and GI protection. Nicotine patch for tobacco dependency. Will consult RT for smoking cessation counseling. Patient may take home medications. Continue bowel motivation given narcotic pain control. Case management to work with patient on finding safe place upon discharge. Upon discharge, patient's care will be returned to his PCP. 08/29/2017 Pt doing better. Mood symptoms primarily situational. Consider switching Wellbutrin to XL version Plan - 08/29/17 Overall, Brigido is doing well. Does continue to express stressors re: his terminal malignancy and his living situation. Offered support, encouraged him to continue to F/U with SW team. He remains very uncomfortable with the prospect of living with his oldest daughter. Not willing to return there. BP, BG are well controlled. Continue current. Continue Nocturnal O2. RT reported that pt. needed some adjustments to his inhalers, which I made earlier today. Continue supportive care. Dr. Samaniego following. Labs, documentation, imaging reviewed. 08/30/17 Psych: Increase Wellbutrin SR to 150mg PO BID (0800, 1400 - must be 6 hours apart). Hospitalist is planning to scheduled pain medication. 08/31/17 Psych: Wellbutrin increased today - monitor response. Will additionally start mirtazapine 7.5mg PO q HS to target sleep, appetite, mood and may help with malaise from chemo. Plan - 09/01/17 Overall, Brigido appears to be doing better. His mood is improving and he denies SI/HI. He continues to struggle with insomnia. Continue psychiatric care per Dr. Richards and team. Continue to provide safe and supportive environment. His appetite has improved and he is wanting to eat more. Diet was changed to regular as maintaining tight blood sugar control is not paramount. Blood sugars remain stable. Continue pain medications as directed. He was seen and evaluated by Dr. Fleming and tolerated his weekly chemotherapy with carboplatin well. Appreciate Dr. Fleming's time and expertise. Continue with bowel motivation given pain control with opioids. Will recheck labs on 09/06 to monitor blood counts, electrolytes and renal function. 09/01/17 Psych: Continue current care - looking into director of social services as far as options after discharge. I believe patient would still be a danger to himself if not in the hospital. APS report filed in regards to his family stealing his pain medications to treat his cancer pain etc. 09/02/17 Psych: Continue current care; SW working with [facility] in regards to safe discharge plan.
[2017-09-02] MEDS: ATORVASTATIN 40 MG TABLET PO SCH (20:28)
[2017-09-02] MEDS: MIRTAZAPINE 15 MG TABLET PO SCH (20:29)
[2017-09-03] MEDS: MORPHINE SULFATE 10mg/0.5ml ORAL LIQ SL PRN ×8 (00:32→23:30)
[2017-09-03] MEDS: Oxycodone *IR* 5 MG TABLET PO SCH ×4 (02:00→10:32)
[2017-09-03] MEDS: BuPROPion SR 150mg (12HR) TABLET PO SCH ×2 (08:24→14:09)
[2017-09-03] MEDS: OMEPRAZOLE 20 MG CAPSULE PO SCH (08:24)
[2017-09-03] MEDS: GABAPENTIN 300 MG CAPSULE PO SCH ×4 (08:25→21:34)
[2017-09-03] MEDS: ASCORBIC ACID 500 MG TABLET PO SCH (08:25)
[2017-09-03] MEDS: Bisacodyl EC TAB 5 MG TABLET PO SCH (08:25)
[2017-09-03] MEDS: EMPAGLIFLOZIN 10 MG TABLET PO SCH (08:25)
[2017-09-03] MEDS: ASPIRIN 325 MG TABLET PO SCH (08:25)
[2017-09-03] MEDS: MULTI-VITAMIN PLAIN TABLET PO SCH (08:26)
[2017-09-03] MEDS: NICOTINE 14 MG PATCH TD SCH (08:26)
[2017-09-03] MEDS: LISINOPRIL 5 MG TABLET PO SCH (08:26)
[2017-09-03] MEDS: RANITIDINE 150 MG TABLET PO SCH (08:27)
[2017-09-03] MEDS: POLYETHYL GLYCOL 3350 17gm PACKET PO SCH (08:27)
[2017-09-03] MEDS: NICOTINE PATCH REMOVAL TD SCH (08:27)
[2017-09-03] MEDS: TIOTROPIUM 18mcg/cap HANDIHALER ORAL INH SCH (12:10)
[2017-09-03] MEDS: ALBUTEROL 2.5mg/3ml (0.083%) NEB AEROSOL SCH (13:00)
[2017-09-03] MEDS: Oxycodone *IR* 5 MG TABLET PO PRN ×3 (13:51→21:34)
--- NOTE | 2017-09-03 15:03 | Neuropsych Progress Note ---
[facility] Subjective Date: 09/03/17 - Sujective/Severity of Illness Medications: Albuterol Sulfate (Proventil Neb (0.083%)) 2.5 mg AEROSOL Q4H PRN PRN Reason: Shortness of air Albuterol Sulfate (Proventil Neb (0.083%)) 2.5 mg AEROSOL DAILY [facility] Last Admin: 09/02/17 07:35 Dose: 2.5 mg Ascorbic Acid (Vitamin C) 500 mg PO DAILY [facility] Last Admin: 09/03/17 08:25 Dose: 500 mg Aspirin (Asa) 650 mg PO DAILY [facility] Last Admin: 09/03/17 08:25 Dose: 650 mg Atorvastatin Calcium (Lipitor) 40 mg PO HS [facility] Last Admin: 09/02/17 20:28 Dose: 40 mg Bisacodyl (Dulcolax) 5 mg PO DAILY [facility] Last Admin: 09/03/17 08:25 Dose: 5 mg Budesonide/Formoterol Fumarate (Symbicort Inhaler) 2 puff ORAL INH RTBID [facility] Last Admin: 09/02/17 21:20 Dose: 2 puff Bupropion HCl (Wellbutrin Sr) 150 mg PO 08,14 [facility] Last Admin: 09/03/17 14:09 Dose: 150 mg Cholecalciferol (Vit. D-3) 2,000 unit PO DAILY [facility] Last Admin: 09/03/17 08:25 Dose: 2,000 unit Dicyclomine HCl (Bentyl) 10 mg PO DAILY PRN Diphenhydramine HCl (Benadryl) 50 mg IVP PRN PRN PRN Reason: FOR HYPERSENSITIVITY REACTION Empagliflozin (Jardiance) 10 mg PO DAILY [facility] Last Admin: 09/03/17 08:25 Dose: 10 mg Gabapentin (Neurontin) 300 mg PO QID [facility] Last Admin: 09/03/17 14:09 Dose: 300 mg Haloperidol (Haldol) 0.5 mg PO Q6H PRN PRN Reason: Extreme agitation Haloperidol Lactate (Haldol) 0.5 mg IM Q6H PRN PRN Reason: Extreme agitation Heparin Sodium (Beef Lung) (Heparin Flush) 500 unit IV PRN PRN Last Admin: 09/01/17 10:06 Dose: 500 unit Hydrocortisone Sodium Succinate (Solu-Cortef) 100 mg IVP PRN PRN PRN Reason: FOR HYPERSENTIVITY REACTION Ketoconazole (Nizoral 2% Cream) 1 applic TOP BID [facility] Last Admin: 09/03/17 08:25 Dose: 1 applic Lisinopril (Prinivil) 5 mg PO DAILY [facility] Last Admin: 09/03/17 08:26 Dose: 5 mg Lorazepam (Ativan) 0.5 mg PO Q6H PRN PRN Reason: Extreme agitation Last Admin: 08/30/17 22:18 Dose: 0.5 mg Lorazepam (Ativan Inj) 0.5 mg IM Q6H PRN PRN Reason: Extreme agitation Methylprednisolone Sodium Succinate (Solu-Medrol) 125 mg IVP PRN PRN PRN Reason: FOR HYPERSENTIVITY REACTION Metoprolol Succinate (Toprol Xl) 25 mg PO DAILY [facility] Last Admin: 09/03/17 08:26 Dose: 25 mg Mirtazapine (Remeron) 7.5 mg PO HS [facility] Last Admin: 09/02/17 20:29 Dose: 7.5 mg Morphine Sulfate (Roxanol Oral Liq) 2 mg SL Q2H PRN PRN Reason: Pain Last Admin: 09/03/17 10:32 Dose: 2 mg Multivitamins (Theragran) 1 tab PO DAILY [facility] Last Admin: 09/03/17 08:26 Dose: 1 tab Nicotine (Nicoderm) 14 mg TD DAILY [facility] Last Admin: 09/03/17 08:26 Dose: 14 mg Nicotine (Nicotine Patch Removal) 1 removal TD DAILY [facility] Last Admin: 09/03/17 08:27 Dose: 1 removal Omeprazole (Prilosec) 20 mg PO ACB [facility] Last Admin: 09/03/17 08:24 Dose: 20 mg Ondansetron HCl (Zofran Po) 4 mg PO Q6H PRN PRN Reason: Nausea &/or vomiting Last Admin: 08/30/17 14:56 Dose: 4 mg Oxycodone HCl (Roxicodone *Ir*) 10 mg PO Q4H PRN PRN Reason: Pain Last Admin: 09/03/17 13:51 Dose: 10 mg Polyethylene Glycol (Miralax) 17 gm PO DAILY [facility] Last Admin: 09/03/17 08:27 Dose: 17 gm Ranitidine HCl (Zantac) 150 mg PO DAILY [facility] Last Admin: 09/03/17 08:27 Dose: 150 mg Sodium Chloride (Iv Flush) 10 - 80 ml IV PRN PRN PRN Reason: Flushing Last Admin: 09/01/17 10:06 Dose: 10 ml Tiotropium [place] (Spiriva) 1 cap ORAL INH DAILY [facility] Last Admin: 09/02/17 07:33 Dose: 1 cap Subjective: Patient seen and chart reviewed. Case discussed with treatment team. On interview, patient is pleasant but states he is in a lot of pain today. He feels the med changes have been helpful and he has more energy during the day but also sleeps better at night. He is thankful for assistance in establishing services here in [place]. Patient denies HI or AVH. He continues to endorse SI if he were to have to return to his living situation with his daughter but feels more hopeful if alternate discharge plans can be arranged. Patient denies any adverse side effects related to psychotropic medications. Nursing staff report patient has not had any significant behavioral difficulties on the unit. Patient has been adherent with medications. Patient reports having much more restful sleep since starting mirtazapine. VSS. Patient is eating well. Psychotropic PRNs required in the past 24 hours: none. Start Time: 11:00 Stop Time: 11:20 Mental Status Exam Vitals: Last Vital Signs Temp 96.8 F 09/03/17 08:00 Pulse 68 09/03/17 08:00 Resp 18 09/03/17 12:10 BP 108/73 09/03/17 08:00 Pulse Ox 97 09/03/17 08:00 Height: 1.78 m Weight: 89.3 kg - Mental Status Exam Muscle Strength/Tone: Normal Dressing: Casual Grooming: Good Attitude: Cooperative Motor Activity: Normal Eye Contact: Good Speech: Normal Volume: Normal Rhythm: Appropriate Rhythm Orientation: Oriented X4 Mood: Depressed Affect: Sad (about cancer, dying, etc. ) Rate of Thoughts: Appropriate Rate Thought Organization: Organized Associations: Intact Abstract Reasoning: Intact, able to abstract Computation: Intact Thought Content: Ruminations, Somatic Concerns Perception/Psychotic: Perception Normal Language: Naming Intact Fund of Knowledge: Appropriate Memory: Grossly Intact Suicidal Ideation: Denies (if alternate living conditions can be arranged) Homicidal Ideation: Denies Insight: Fair Judgement: Fair Impulse Control: Good - Laboratory Result Diagrams: 08/30/17 07:46 08/30/17 07:46 Laboratory Results - last 24 hr 09/03/17 06:42 Glucometer 92 Assessment and Plan (1) Major depress dis, severe Current visit: Yes Status: Acute (2) Lymphoma Current visit: Yes Status: Chronic Department of Aging has agreed to provide $300 so patient can establish residence with supportive daughter; /CM working to finalize this. Have offered Lidoderm patch for pain in addition to current regimen. Hospital Course Summary Disclaimer: The visit summary below is not to be considered part of the above Progress Note. Hospital Course: Plan - 08/27/17 Agree with admission to [facility] under the care of Dr. Richards and team. Hospitalist service consulted for medical management. Admission labs were unremarkable. Will monitor periodically throughout admission. History of lymphoma which patient reports is terminal and currently undergoing chemotherapy per Dr. Samaniego. Consult Dr. Samaniego for oncology maintenance. Monitor blood sugars closely and continue home Jardiance. Continue home blood pressure medications - lisinopril and metoprolol. Monitor blood pressure and heart rate closely. Continue home breathing treatments. DuoNeb treatments PRN. Use of oxygen at night at 4L and during the day as needed. Goal pulse ox between 90-95%. Continue home prilosec and zantac for GERD and GI protection. Nicotine patch for tobacco dependency. Will consult RT for smoking cessation counseling. Patient may take home medications. Continue bowel motivation given narcotic pain control. Case management to work with patient on finding safe place upon discharge. Upon discharge, patient's care will be returned to his PCP. 08/29/2017 Pt doing better. Mood symptoms primarily situational. Consider switching Wellbutrin to XL version Plan - 08/29/17 Overall, Brigido is doing well. Does continue to express stressors re: his terminal malignancy and his living situation. Offered support, encouraged him to continue to F/U with team. He remains very uncomfortable with the prospect of living with his oldest daughter. Not willing to return there. BP, BG are well controlled. Continue current. Continue Nocturnal O2. RT reported that pt. needed some adjustments to his inhalers, which I made earlier today. Continue supportive care. Dr. Samaniego following. Labs, documentation, imaging reviewed. 08/30/17 Psych: Increase Wellbutrin SR to 150mg PO BID (0800, 1400 - must be 6 hours apart). Hospitalist is planning to scheduled pain medication. 08/31/17 Psych: Wellbutrin increased today - monitor response. Will additionally start mirtazapine 7.5mg PO q HS to target sleep, appetite, mood and may help with malaise from chemo. Plan - 09/01/17 Overall, Brigido appears to be doing better. His mood is improving and he denies SI/HI. He continues to struggle with insomnia. Continue psychiatric care per Dr. Richards and team. Continue to provide safe and supportive environment. His appetite has improved and he is wanting to eat more. Diet was changed to regular as maintaining tight blood sugar control is not paramount. Blood sugars remain stable. Continue pain medications as directed. He was seen and evaluated by Dr. Fleming and tolerated his weekly chemotherapy with carboplatin well. Appreciate Dr. Fleming's time and expertise. Continue with bowel motivation given pain control with opioids. Will recheck labs on 09/06 to monitor blood counts, electrolytes and renal function. 09/01/17 Psych: Continue current care - looking into hospital social worker as far as options after discharge. I believe patient would still be a danger to himself if not in the hospital. APS report filed in regards to his family stealing his pain medications to treat his cancer pain etc. 09/02/17 Psych: Continue current care; SW working with Dept. of Aging in regards to safe discharge plan. 09/03/17 Psych: Department of Aging has agreed to provide $300 so patient can establish residence with supportive daughter; SW/PHYLLIS working to finalize this. Have offered Lidoderm patch for pain in addition to current regimen.
[2017-09-03] MEDS ORDERED: LIDOCAINE PATCH REMOVAL TOP ONE (15:55)
--- NOTE | 2017-09-03 16:49 | Progress Note ---
Oncology Subjective Increased pain today in left flank. No new symptoms Exam Vital signs: Temperature 97.4 F 09/03/17 16:00 Pulse Rate 76 09/03/17 16:00 Respiratory Rate 16 09/03/17 16:00 Blood Pressure 115/74 09/03/17 16:00 Pulse Oximetry 94 09/03/17 16:00 - Constitutional no acute distress - Routine HEENT Exam Head: Present: normocephalic Eye: Present: EOMI, PERRL Throat: normal inspection - Routine Neck Exam Present: supple, lymphadenopathy (right SC area 1 cm) - Routine Respiratory Exam Present: decreased breath sounds, CTA bilaterally - Routine Cardiovascular Exam Present: RRR, no murmur - Routine Abdominal Exam Present: soft, non distended, non tender - Routine Extremities Exam Absent: cyanosis, clubbing, edema - Routine Neurological Exam Present: alert, oriented X3, CN II-XII intact - Routine Psychiatric Exam Present: normal affect Oncology Results - Labs CBC & Chem 7: 08/30/17 07:46 08/30/17 07:46 Assessment and Plan Assessment and Plan: Assessment and plan 1. 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 Last chemotherapy on 08/30/17. Tolerating well Home tomorrow. Follow up Wednesday 2. Depression. Currently improved 3. Bone metastasis May be source of pain. Will get CT on Wednesday and consider XRT for symptom relief. - Time Spent With Patient Total time spent is greater than 50% in coordination of care (as documented) at patient's floor/unit and/or counseling patient: less than 15 minutes
[2017-09-03] MEDS: ATORVASTATIN 40 MG TABLET PO SCH (21:35)
[2017-09-03] MEDS: MIRTAZAPINE 15 MG TABLET PO SCH (21:35)
[2017-09-04] MEDS: MORPHINE SULFATE 10mg/0.5ml ORAL LIQ SL PRN ×3 (01:37→09:14)
[2017-09-04] MEDS: Oxycodone *IR* 5 MG TABLET PO PRN ×3 (01:37→09:14)
[2017-09-04] MEDS: OMEPRAZOLE 20 MG CAPSULE PO SCH (05:48)
[2017-09-04] MEDS: BuPROPion SR 150mg (12HR) TABLET PO SCH (08:14)
[2017-09-04] MEDS: ASPIRIN 325 MG TABLET PO SCH (08:15)
[2017-09-04] MEDS: ASCORBIC ACID 500 MG TABLET PO SCH (08:15)
[2017-09-04] MEDS: RANITIDINE 150 MG TABLET PO SCH (08:16)
[2017-09-04] MEDS: LISINOPRIL 5 MG TABLET PO SCH (08:16)
[2017-09-04] MEDS: GABAPENTIN 300 MG CAPSULE PO SCH (08:16)
[2017-09-04] MEDS: Bisacodyl EC TAB 5 MG TABLET PO SCH (08:16)
[2017-09-04] MEDS: MULTI-VITAMIN PLAIN TABLET PO SCH (08:16)
[2017-09-04] MEDS: NICOTINE 14 MG PATCH TD SCH (08:17)
[2017-09-04] MEDS: EMPAGLIFLOZIN 10 MG TABLET PO SCH (08:18)
[2017-09-04] MEDS: NICOTINE PATCH REMOVAL TD SCH (08:18)
[2017-09-04] MEDS: POLYETHYL GLYCOL 3350 17gm PACKET PO SCH (08:18)
[2017-09-04] MEDS ORDERED: LIDOCAINE 5% PATCH TOP SCH (09:00)
--- NOTE | 2017-09-04 10:11 | Progress Note ---
- Date 09/04/17 Subjective: Brigido is seen today in follow up. He is up in his room. Pain is well controlled. Is dismissing today- reports he and his daughter now have a safe place to live. D/W RN- pain medication is adequate. Dr. Samaniego is to provide weekly script due to OD concerns. He has been getting Roxanol here as well, possible hospice set up later this weekend or next week. Patient looks very well. He is ambulatory, is in no distress and does not report pain. Prefers RX sent to [facility] for lidoderm patch. Objective Vital signs: Temperature 97.4 F 09/04/17 00:00 Pulse Rate 70 09/04/17 00:00 Respiratory Rate 20 09/04/17 00:00 Blood Pressure 126/78 09/04/17 00:00 Pulse Oximetry 94 09/04/17 00:00 Height/Weight/BMI: Height 1.78 m Weight 89.3 kg Body Mass Index 28.2 - Constitutional Present: well nourished, cooperative - Routine HEENT Exam Head: Present: normocephalic Eye: Present: EOMI, PERRL - Routine Respiratory Exam Present: CTA bilaterally. Absent: rhonchi, wheezes, crackles - Routine Cardiovascular Exam Present: RRR, S1, S2, no murmur - Routine Abdominal Exam Present: soft, normoactive bowel sounds, non distended, non tender - Routine Extremities Exam Present: no edema, non tender - Routine Back/Spine/Pelvis Exam Back/Spine: Present: full ROM - Routine Musculoskeletal Exam Musculoskeletal: Present: no clubbing or cyanosis, no erythema, moving extremities well - Routine Skin Exam Present: intact, dry, warm - Routine Neurological Exam Present: alert, oriented X3, moving all extremities - Routine Psychiatric Exam Present: normal affect, normal thought process, cooperative Results - Labs CBC & Chem 7: 08/30/17 07:46 08/30/17 07:46 Assessment and Plan (1) Depression Current visit: Yes Status: Acute (2) Lymphoma Current visit: Yes Status: Chronic Assessment and Plan: Assessment Major depressive disorder with suicidal ideation. Lymphoma -follows with Dr. Samaniego. Diastolic congestive heart failure. CAD. Hypertension. History of [place]. COPD. Nocturnal home oxygen dependency at 4L. Sleep apnea. History of TIA. Tobacco dependency. Diabetes Mellitus Type 2. GERD. IBS. History of DVT. Vitamine D deficiency. Immunosuppression secondary to current chemotherapy. Chronic pain. Constipation. Plan - 09/04/17 He is dismissing home today. He is tolerating increase in Oxycodone to 10mg Q 4 hours PRN. Pain medication will be through oncology. I am not comfortable giving him Roxicodone right now given OD concern and the fact he is very functional. D/W RN. If hospice is initiated, they can further determine pain medication needs. Will send RX to [facility]. Ok to continue remainder of medications that are active. To F/U with PCP as outpatient. Pt. is pleasant, calm, and expresses appreciation for all of the assistance he received here. Resuscitation Status: Full Code - Physician Narrative Narrative: Date: 09/04/17 Time: 1008 Hospital Course Summary Disclaimer: The visit summary below is not to be considered part of the above Progress Note. Hospital Course: Plan - 08/27/17 Agree with admission to [facility] under the care of Dr. Richards and team. Hospitalist service consulted for medical management. Admission labs were unremarkable. Will monitor periodically throughout admission. History of lymphoma which patient reports is terminal and currently undergoing chemotherapy per Dr. Samaniego. Consult Dr. Samaniego for oncology maintenance. Monitor blood sugars closely and continue home Jardiance. Continue home blood pressure medications - lisinopril and metoprolol. Monitor blood pressure and heart rate closely. Continue home breathing treatments. DuoNeb treatments PRN. Use of oxygen at night at 4L and during the day as needed. Goal pulse ox between 90-95%. Continue home prilosec and zantac for GERD and GI protection. Nicotine patch for tobacco dependency. Will consult RT for smoking cessation counseling. Patient may take home medications. Continue bowel motivation given narcotic pain control. Case management to work with patient on finding safe place upon discharge. Upon discharge, patient's care will be returned to his PCP. 08/29/2017 Pt doing better. Mood symptoms primarily situational. Consider switching Wellbutrin to XL version Plan - 08/29/17 Overall, Brigido is doing well. Does continue to express stressors re: his terminal malignancy and his living situation. Offered support, encouraged him to continue to F/U with SW team. He remains very uncomfortable with the prospect of living with his oldest daughter. Not willing to return there. BP, BG are well controlled. Continue current. Continue Nocturnal O2. RT reported that pt. needed some adjustments to his inhalers, which I made earlier today. Continue supportive care. Dr. Samaniego following. Labs, documentation, imaging reviewed. 08/30/17 Psych: Increase Wellbutrin SR to 150mg PO BID (0800, 1400 - must be 6 hours apart). Hospitalist is planning to scheduled pain medication. 08/31/17 Psych: Wellbutrin increased today - monitor response. Will additionally start mirtazapine 7.5mg PO q HS to target sleep, appetite, mood and may help with malaise from chemo. Plan - 09/01/17 Overall, Brigido appears to be doing better. His mood is improving and he denies SI/HI. He continues to struggle with insomnia. Continue psychiatric care per Dr. Richards and team. Continue to provide safe and supportive environment. His appetite has improved and he is wanting to eat more. Diet was changed to regular as maintaining tight blood sugar control is not paramount. Blood sugars remain stable. Continue pain medications as directed. He was seen and evaluated by Dr. Fleming and tolerated his weekly chemotherapy with carboplatin well. Appreciate Dr. Fleming's time and expertise. Continue with bowel motivation given pain control with opioids. Will recheck labs on 09/06 to monitor blood counts, electrolytes and renal function. 09/01/17 Psych: Continue current care - looking into renal social worker as far as options after discharge. I believe patient would still be a danger to himself if not in the hospital. APS report filed in regards to his family stealing his pain medications to treat his cancer pain etc. 09/02/17 Psych: Continue current care; [facility] working with Dept. [facility] Aging in regards to safe discharge plan. 09/03/17 Psych: Department of Aging has agreed to provide $300 so patient can establish residence with supportive daughter; SW/CM working to finalize this. Have offered Lidoderm patch for pain in addition to current regimen. Plan - 09/04/17 He is dismissing home today. He is tolerating increase in Oxycodone to 10mg Q 4 hours PRN. Pain medication will be through oncology. I am not comfortable giving him Roxicodone right now given OD concern and the fact he is very functional. D/W RN. If hospice is initiated, they can further determine pain medication needs. Nursing counted tabs in patient RX, and he has enough to get him to next appt with oncology early next week. Will send RX to [facility]. Ok to continue remainder of medications that are active. To F/U with PCP as outpatient. Pt. is pleasant, calm, and expresses appreciation for all of the assistance he received here.
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
[2017-09-04 10:55] VITALS: BP 119/85; PULSE 90; RESP 18; TEMP 97.7; O2SAT 93
== END 2017-09-04 10:45 | disposition home health service (06) | DRG 885 ==
LOC: ED 10:00 → GEN 13:05
PROVIDERS: ADMIT Psychiatry & Neurology Psychiatry; ATTEND Psychiatry & Neurology Psychiatry

== ENCOUNTER 2017-10-02 18:22 | Inpatient (IN) ==
--- NOTE | 2017-10-02 18:36 | Emergency Department Report ---
General Adult HPI - General Stated complaint: N/V Time Seen by Provider: 10/02/17 18:34 Source: patient, family, EMS Mode of arrival: EMS Limitations: no limitations - History of Present Illness HPI narrative: 62-year-old male presents to the emergency department with a chief complaint of nausea and vomiting and left-sided flank discomfort. Patient noted onset of symptoms 2 days ago. He was at home when his symptoms began. Symptoms have been persistent in nature since onset. Patient denies any blood in the emesis. Patient recently underwent lithotripsy and had a stent placed in his left ureter by Dr. Jamie Chou. Patient is also noted to be undergoing chemotherapy and radiation therapy with Dr. Samaniego. No other complaints or associated symptoms. He does not note any exacerbating or remitting factors. - Related Data Home Medications Medication Instructions Recorded Confirmed Albuterol HFA Inhaler [Ventolin 2 puff ORAL INH Q4HR PRN 08/27/17 10/02/17 Hfa 90 mcg/actuation] Albuterol Sulfate 2.5 mg AEROSOL DAILY 08/27/17 10/02/17 Ascorbate Calcium [Vitamin C] 500 mg PO DAILY 08/27/17 10/02/17 Aspirin 650 mg PO DAILY 08/27/17 10/02/17 Atorvastatin [Lipitor] 40 mg PO HS 08/27/17 10/02/17 Bisacodyl [Laxative] 5 mg PO DAILY 08/27/17 10/02/17 Budesonide/Formoterol Fumarate 1 puff IH DAILY PRN 08/27/17 10/02/17 [Symbicort 80-4.5 Mcg Inhaler] Cholecalciferol (Vitamin D3) 2,000 unit PO DAILY 08/27/17 10/02/17 [Vitamin D3] Empagliflozin [Jardiance] 10 mg PO DAILY 08/27/17 10/02/17 Gabapentin [Neurontin] 300 mg PO QID 08/27/17 10/02/17 Ketoconazole [Ketoconazole] 1 applicatio TOP BID 08/27/17 10/02/17 Lisinopril [Prinivil] 5 mg PO DAILY 08/27/17 10/02/17 Metoprolol Succinate 25 mg PO DAILY 08/27/17 10/02/17 Multivitamin [One Daily] 1 tab PO DAILY 08/27/17 10/02/17 Omeprazole [Prilosec] 20 mg PO ACB 08/27/17 10/02/17 Peg 3350 238 G Bottle [Miralax] 17 gm PO DAILY PRN 08/27/17 10/02/17 Ranitidine [Zantac] 150 mg PO DAILY 08/27/17 10/02/17 Tiotropium [place]hal[place] [Spiriva] 1 cap ORAL INH DAILY 08/27/17 10/02/17 Dicyclomine [Bentyl] 10 mg PO DAILY PRN 10/02/17 10/02/17 Ondansetron HCl [Ondansetron HCl] 8 mg PO TID PRN 10/02/17 10/02/17 Oxycodone HCl [Oxycodone HCl] 10 mg PO Q4-6HR PRN 10/02/17 10/02/17 fentaNYL [Fentanyl] 1 patch TD Q72H 10/02/17 10/02/17 Previous Rx's Medication Instructions Recorded Lidocaine [Lidoderm] 1 each TP DAILY #10 adh..patch 09/04/17 Mirtazapine [Remeron] 7.5 mg PO HS tab 09/04/17 buPROPion HCl [Bupropion HCl Sr] 150 mg PO DAILY 30 Days #30 09/04/17 tab.er.12h Allergies Allergy/AdvReac Type Severity Reaction Status Date / Time No Known Allergies Allergy Verified 10/02/17 18:40 Review of Systems Constitutional: Denies: fever, chills Eyes: Denies: eye pain, vision change ENT: Denies: ear pain, throat pain Cardiovascular: Denies: chest pain, palpitations Respiratory: Denies: cough, dyspnea Gastrointestinal: Reports: abdominal pain, nausea, vomiting. Denies: diarrhea Genitourinary: Denies: urgency, dysuria Musculoskeletal: Denies: back pain, arthralgia Integumentary: Denies: erythema, rash Neurological: Denies: headache, numbness Psychiatric: Denies: anxiety, depression Endocrine: Denies: fatigue, heat or cold intolerance Hematological/Lymphatic: Denies: easy bruising, lymphadenopathy Allergic/Immunologic: Denies: facial swelling, urticaria PFSH Patient Stated Medical History Syncope Yes Transient Ischemic Attacks ( Yes TIA) Congestive Heart Failure Yes Coronary Artery Disease Yes Hypertension Yes Myocardial Infarction Yes Bronchitis Yes Chronic Obstructive Pulmonary Yes Disease (COPD) Sleep Apnea Yes Other Respiratory Yes: hx of smoking Diabetes Mellitus Type 2 Yes Ulcer hx. of GERD and IBS Other GI Yes: blood in stools/ paraesoph. hernia Other Yes: hx. of prostate surgery Blood Disorders Yes: Lymphoma Clotting Problems Yes: Hx. of DVT Other Hematologic Yes: Vit D deficiency Other Musculoskeletal Yes: lymphoma pain in ribs and back Chemotherapy Yes Other Yes: Radiation Depression Yes Substance Use Disorder Yes: OCCASIONAL MARIJUANA Medical History Updates: Cerebrovascular accident, Congestive heart failure, Hypertension, x14 mini strokes;. Chronic obstructive pulmonary disease;. Hiatal hernia, Acid reflux;. Hematologic Hx of blood clots;. Musculoskeletal Arthritis;. Endocrine/metabolic Diabetes mellitus type II; Surgical History: Multiple hernia repairs. Microlaryngoscopy. Right radical tonsillectomy. Modified neck dissection. TURP. Family History: Reviewed and noncontributory. - Social History Smoking status: Current every day smoker Substance use type: does not use Alcohol intake frequency: does not drink Physical Exam - Limitations Limitations: no limitations - General General appearance: alert, in no apparent distress - Normal Exams: Head:: Normocephalic without trauma Eyes:: Pupils are PERRLA w/ EOMI, No scleral icterus, irritation, or foreign bodies noted ENMT:: No facial trauma, nasal exudates, pharyngeal erythema, or exudates are noted Dental: No fractured, loose, or missing teeth noted Neck:: Full range of motion, without adenopathy, JVD, bruits or thyromegaly Chest/Respirations:: Clear all dykes, with good airflow, and symmetry bilaterally Cardiovascular:: Regular rate and rhythm, without murmur or gallop, Pulses 2+ all extremities, capillary refill, <2 seconds all extremities Abdomen:: Bowel sounds positive, soft, non-tender, non-distended, no hepatosplenomegaly, masses or bruits noted Lymphatic:: No lymphadenopathy, or lymphedema noted Musculoskeletal:: No tenderness, or deformity noted, good range of motion, all extremities Integumentary:: No rashes, hives, or bruising noted, hair and nails, without abnormality Neurological:: Patient is alert, and oriented, cranial nerves, motor/sensory/ cerebellar, exams w/o gross deficits, to observation Psychiatric:: Patient exhibits, appropriate attention, emotion and affect Course Vital Signs Temperature 99.5 F 10/02/17 18:25 Pulse Rate 102 H 10/02/17 18:25 Respiratory Rate 20 10/02/17 18:25 Blood Pressure 136/84 10/02/17 18:25 Pulse Oximetry 93 10/02/17 18:25 Temperature 102.4 F H 10/02/17 22:56 Pulse Rate 111 H 10/02/17 22:24 Respiratory Rate 22 10/02/17 22:24 Blood Pressure 128/84 10/02/17 22:24 Pulse Oximetry 96 10/02/17 22:24 Medical Decision Making - MDM Narrative Medical decision making narrative: Labs/imaging are discussed in detail with the patient and questions are answered. Patient is given 500 mL normal saline intravenously times one. Patient is given Zofran 4 mg IV 1 with improvement of symptoms prior to arrival from EMS with improvement of symptoms. Patient was discussed with Dr. Zavala who is covering for his urologist Dr. Chou. Dr. Zavala recommends antibiotic therapy and no need for transfer at this time. Patient is discussed with the Dr. Tal Samaniego who happens to be in the emergency department to see another patient and Dr. Samaniego is not comfortable with the patient returning home. Dr. Samaniego would like to see the patient receive at least 24 hours of IV antibiotic therapy and monitoring due to the patient being on chemotherapy/radiation therapy. He feels that the patient has potential for decompensation. Patient is discussed with the hospitalist Dr. Garrett who agrees to admit the patient to her service. No further orders from consulting or accepting physicians who are in agreement with the current plan of management. Patient is admitted to the service of the hospitalist in improved condition. Patient was given Rocephin 1 g intravenously at 2142 when sepsis was considered. Patient has a normal lactate and was never hypotensive in the emergency department. - Differential Diagnosis UTI, Renal Stone, Metabolic disorder, viral syndrome - Lab Data Result diagrams: 10/02/17 18:35 10/02/17 18:35 Lab Results 10/02/17 10/02/17 10/02/17 Range/Units 18:35 18:35 19:54 WBC 7.1 (4.5-11.0) T/MM3 RBC 4.47 L (4.50-5.90) M/MM3 Hgb 13.9 (13.5-17.5) GM/DL Hct 40.2 L (41-53) % MCV 89.9 (80-100) UM3 MCH 31.1 (26-34) UUG MCHC 34.6 (31-37) GM/DL RDW Std Deviation 51.2 H (36.9-50.2) FL Plt Count 212 (130-400) T/MM3 MPV 9.7 (9.4-12.4) UM3 Immature Gran % (Auto) Not performed Neut % (Auto) Not performed Lymph % (Auto) Not performed [place] % (Auto) Not performed Eos % (Auto) Not performed Baso % (Auto) Not performed Neut # (Auto) Not performed Lymph # (Auto) Not performed [place] # (Auto) Not performed Eos # (Auto) Not performed Baso # (Auto) Not performed Abs Immat Gran (auto) Not performed Neutrophils % (Manual) 75.0 H (33-66) % Band Neutrophils % 2.0 (0-6) % Lymphocytes % (Manual) 4.0 L (23-45) % Monocytes % (Manual) 19.0 H (0-9.0) % Neutrophils # (Manual) 5.3 (1.8-7.7) T/MM3 Band Neutrophils # 0.1 T/MM3 Lymphocytes # (Manual) 0.3 L (1-4.8) T/MM3 Monocytes # (Manual) 1.3 H (0-0.8) T/MM3 Polychromasia 1+ RBC Morph Comment Abnormal Turbidity < 20 (0-20) Sodium 137 (134-144) MEQ/L Potassium 4.3 (3.6-5) MEQ/L Chloride 99 (98-107) MEQ/L Carbon Dioxide 20 L (22-30) MEQ/L Anion Gap 18 H (5-15) MEQ/L BUN 24.0 H (9-20) MG/DL Creatinine 1.0 (0.8-1.5) MG/DL GFR Calculation 75 BUN/Creatinine Ratio 24 (6-26) RATIO Glucose 145 H (75-110) MG/DL Calculated Osmolality 271 (261-280) MOSM/KG Calcium 9.9 (8.4-10.2) MG/DL Total Bilirubin 1.20 (0.20-1.30) MG/DL Icterus Index < 2 (0-7) AST 18 (17-59) U/L ALT 29 (21-72) U/L Alkaline Phosphatase 88 (38-126) U/L Troponin I < 0.012 (0-0.12) ng/ml Total Protein 8.0 (6.3-8.2) G/DL Albumin 4.6 (3.5-5.0) G/DL Globulin 3.4 (2.4-3.6) G/DL Albumin/Globulin Ratio 1.4 (1.1-2.2) RATIO Lipase 16 L (23-300) U/L Plasma Lactate (0.6-2.2) MMOL/L Procalcitonin NG/ML Specimen Hemolysis < 15 (0-25) Ur Collection Type Urine, void-cc/notcc Urine Color Yellow (YELLOW) Urine Clarity Cloudy Urine pH 5.5 (5.0-8.0) Ur Specific [place] 1.025 (1.015-1.025) Urine Protein 1+ A (NEGATIVE) Urine Glucose (UA) 3+ A (NEGATIVE) Urine Ketones 2+ A (NEGATIVE) Urine Occult Blood 3+ A (NEGATIVE) Urine Nitrate Negative (NEGATIVE) Urine Bilirubin Negative (NEGATIVE) Urine Urobilinogen 0.2 (NORMAL) EU/DL Ur Leukocyte Esterase 1+ A (NEGATIVE) Urine RBC 5-10 H (0-3) /HPF Urine WBC 50-200 H (0-5) /HPF Urine Bacteria 2+ H (NEGATIVE) Ur Culture Indicated? Cult reflexed &setup Influenza Type A (PCR) (Negative) Influenza Type B (PCR) (Negative) 10/02/17 10/02/17 10/02/17 Range/Units 19:54 21:29 21:29 WBC (4.5-11.0) T/MM3 RBC (4.50-5.90) M/MM3 Hgb (13.5-17.5) GM/DL Hct (41-53) % MCV (80-100) UM3 MCH (26-34) UUG MCHC (31-37) GM/DL RDW Std Deviation (36.9-50.2) FL Plt Count (130-400) T/MM3 MPV (9.4-12.4) UM3 Immature Gran % (Auto) Neut % (Auto) Lymph % (Auto) [place] % (Auto) Eos % (Auto) Baso % (Auto) Neut # (Auto) Lymph # (Auto) [place] # (Auto) Eos # (Auto) Baso # (Auto) Abs Immat Gran (auto) Neutrophils % (Manual) (33-66) % Band Neutrophils % (0-6) % Lymphocytes % (Manual) (23-45) % Monocytes % (Manual) (0-9.0) % Neutrophils # (Manual) (1.8-7.7) T/MM3 Band Neutrophils # T/MM3 Lymphocytes # (Manual) (1-4.8) T/MM3 Monocytes # (Manual) (0-0.8) T/MM3 Polychromasia RBC Morph Comment Turbidity (0-20) Sodium (134-144) MEQ/L Potassium (3.6-5) MEQ/L Chloride (98-107) MEQ/L Carbon Dioxide (22-30) MEQ/L Anion Gap (5-15) MEQ/L BUN (9-20) MG/DL Creatinine (0.8-1.5) MG/DL GFR Calculation BUN/Creatinine Ratio (6-26) RATIO Glucose (75-110) MG/DL Calculated Osmolality (261-280) MOSM/KG Calcium (8.4-10.2) MG/DL Total Bilirubin (0.20-1.30) MG/DL Icterus Index (0-7) AST (17-59) U/L ALT (21-72) U/L Alkaline Phosphatase (38-126) U/L Troponin I (0-0.12) ng/ml Total Protein (6.3-8.2) G/DL Albumin (3.5-5.0) G/DL Globulin (2.4-3.6) G/DL Albumin/Globulin Ratio (1.1-2.2) RATIO Lipase (23-300) U/L Plasma Lactate 0.9 (0.6-2.2) MMOL/L Procalcitonin 0.24 NG/ML Specimen Hemolysis (0-25) Ur Collection Type Urine Color (YELLOW) Urine Clarity Urine pH (5.0-8.0) Ur Specific [place] (1.015-1.025) Urine Protein (NEGATIVE) Urine Glucose (UA) (NEGATIVE) Urine Ketones (NEGATIVE) Urine Occult Blood (NEGATIVE) Urine Nitrate (NEGATIVE) Urine Bilirubin (NEGATIVE) Urine Urobilinogen (NORMAL) EU/DL Ur Leukocyte Esterase (NEGATIVE) Urine RBC (0-3) /HPF Urine WBC (0-5) /HPF Urine Bacteria (NEGATIVE) Ur Culture Indicated? Influenza Type A (PCR) Negative (Negative) Influenza Type B (PCR) Negative (Negative) - Radiology Data ET abdomen/pelvis: Multiple small calculi in the left renal pelvis and inferior left renal calyces in the location or a 10 mm obstructing stone was seen. Moderate perinephric and left perirenal stranding worsened when compared to prior study with interval placement of double pigtail catheter from left renal pelvis into bladder. Large hiatal hernia associated with organo-axial gastric volvulus similar to prior study. - EKG Data EKG #1 EKG results narrative: Sinus rhythm. Right bundle branch block. 96 bpm. No STEMI. Disposition Clinical Impression: UTI (urinary tract infection) Qualifiers: Urinary tract infection type: site unspecified Hematuria presence: with hematuria Qualified Code(s): N39.0 - Urinary tract infection, site not specified ; R31.9 - Hematuria, unspecified Condition: Improved Time of Disposition: 21:00 (Admit. Dr. Bailon. ) - Seen By: physician
[2017-10-02] MEDS ORDERED: ALBUTEROL/IPRATROPIUM 2.5mg-0.5mg/3ml NEB AEROSOL ONE (18:48)
[2017-10-02] MEDS ORDERED: CEFTRIAXONE (ER USE ONLY) 1 GM in NS 100 ML IV ONE (21:42)
[2017-10-02] MEDS: NS 1,000 ML IV SCH (22:52)
--- NOTE | 2017-10-02 23:22 | History & Physical Report ---
History of Present Illness Date: 10/02/17 Chief complaint: abdominal pain HPI: 62 yo M PMH of cancer in his bones with mets and left urolithiasis with lithotripsy on 09/28 presented to the ED with reports of 3 days HX of increased left sided flank and abdominal pain. He reports the pain is severe, with nausea/ vomiting for 3 days. He reports fever of 102 at home. He had not taken any medications at home for this. He reports he has been taking extra pain medications because of his pain, and that he feels alot of his symptoms are due to withdrawal. Patient reports that his last pain pill was at 2:00pm today, but then he reports it was yesterday. Patients urologist was consulted by ED and it was recommended that he be put on ABX and oxybutinin and be D/c home, but Dr. Samaniego his oncologist was in the ED and recommended he be admitted for IV ABX for 24 hours. Review of Systems All systems PM: 10-point ROS was reviewed, no additional remarkable complaints except Past Medical History Patient Stated Medical History Syncope Yes Transient Ischemic Attacks ( Yes TIA) Congestive Heart Failure Yes Coronary Artery Disease Yes Hypertension Yes Myocardial Infarction Yes Bronchitis Yes Chronic Obstructive Pulmonary Yes Disease (COPD) Sleep Apnea Yes Other Respiratory Yes: hx of smoking Diabetes Mellitus Type 2 Yes Ulcer hx. of GERD and IBS Other GI Yes: blood in stools/ paraesoph. hernia Other Yes: hx. of prostate surgery Blood Disorders Yes: Lymphoma Clotting Problems Yes: Hx. of DVT Other Hematologic Yes: Vit D deficiency Other Musculoskeletal Yes: lymphoma pain in ribs and back Chemotherapy Yes Other Yes: Radiation Depression Yes Substance Use Disorder Yes: OCCASIONAL MARIJUANA Medical History Updates: Cerebrovascular accident, Congestive heart failure, Hypertension, x14 mini strokes;. Chronic obstructive pulmonary disease;. Hiatal hernia, Acid reflux;. Hematologic Hx of blood clots;. Musculoskeletal Arthritis;. Endocrine/metabolic Diabetes mellitus type II; Surgical History: Multiple hernia repairs. Microlaryngoscopy. Right radical tonsillectomy. Modified neck dissection. TURP. Family History Updates: updated - Social History Smoking status: Current every day smoker Medications Home Medications Medication Instructions Recorded Confirmed Type Albuterol HFA Inhaler [Ventolin 2 puff ORAL INH Q4HR PRN 08/27/17 10/02/17 History Hfa 90 mcg/actuation] Albuterol Sulfate 2.5 mg AEROSOL DAILY 08/27/17 10/02/17 History Ascorbate Calcium [Vitamin C] 500 mg PO DAILY 08/27/17 10/02/17 History Aspirin 650 mg PO DAILY 08/27/17 10/02/17 History Atorvastatin [Lipitor] 40 mg PO HS 08/27/17 10/02/17 History Bisacodyl [Laxative] 5 mg PO DAILY 08/27/17 10/02/17 History Budesonide/Formoterol Fumarate 1 puff IH DAILY PRN 08/27/17 10/02/17 History [Symbicort 80-4.5 Mcg Inhaler] Cholecalciferol (Vitamin D3) 2,000 unit PO DAILY 08/27/17 10/02/17 History [Vitamin D3] Empagliflozin [Jardiance] 10 mg PO DAILY 08/27/17 10/02/17 History Gabapentin [Neurontin] 300 mg PO QID 08/27/17 10/02/17 History Ketoconazole [Ketoconazole] 1 applicatio TOP BID 08/27/17 10/02/17 History Lisinopril [Prinivil] 5 mg PO DAILY 08/27/17 10/02/17 History Metoprolol Succinate 25 mg PO DAILY 08/27/17 10/02/17 History Multivitamin [One Daily] 1 tab PO DAILY 08/27/17 10/02/17 History Omeprazole [Prilosec] 20 mg PO ACB 08/27/17 10/02/17 History Peg 3350 238 G Bottle [Miralax] 17 gm PO DAILY PRN 08/27/17 10/02/17 History Ranitidine [Zantac] 150 mg PO DAILY 08/27/17 10/02/17 History Tiotropium Handihaler [Spiriva] 1 cap ORAL INH DAILY 08/27/17 10/02/17 History Dicyclomine [Bentyl] 10 mg PO DAILY PRN 10/02/17 10/02/17 History Ondansetron HCl [Ondansetron HCl] 8 mg PO TID PRN 10/02/17 10/02/17 History Oxycodone HCl [Oxycodone HCl] 10 mg PO Q4-6HR PRN 10/02/17 10/02/17 History fentaNYL [Fentanyl] 1 patch TD Q72H 10/02/17 10/02/17 History Allergies Allergy/AdvReac Type Severity Reaction Status Date / Time No Known Allergies Allergy Verified 10/02/17 18:40 Exam Vital Signs: Temperature 102.4 F H 10/02/17 22:56 Pulse Rate 111 H 10/02/17 22:24 Respiratory Rate 22 10/02/17 22:24 Blood Pressure 128/84 10/02/17 22:24 Pulse Oximetry 96 10/02/17 22:24 Height/Weight/BMI: Height 1.78 m Weight 83.3 kg Body Mass Index 26.3 - Constitutional Present: mild distress (due to pain) - Routine Respiratory Exam Present: CTA bilaterally. Absent: wheezes - Routine Cardiovascular Exam Present: RRR. Absent: murmur - Routine Abdominal Exam Present: soft, tenderness (left flank) - Routine Extremities Exam Present: normal capillary refill - Routine Skin Exam Present: dry, warm - Routine Neurological Exam Present: alert, oriented X3, CN II-XII intact - Routine Psychiatric Exam Present: normal affect Results - Labs CBC & Chem 7: 10/02/17 18:35 10/02/17 18:35 Assessment and Plan (1) UTI (urinary tract infection) Current visit: Yes Status: Acute (2) Nephrolithiasis Current visit: Yes Status: Acute (3) Abdominal pain Current visit: Yes Status: Acute Assessment and Plan: Patient given IV ceftriaxone in the ED, started on IVF and supportive care. Will continue IVF overnight. Restart home pain meds, question some component of withdrawal given patient reports he has taken extra of his pain medications and he only gets 25pills a week. Urine CX and blood CX sent. DVT Prophylaxis: SCD's GI Prophylaxis: Protonix Resuscitation Status: Full Code - Physician Narrative Narrative: Date: 10/02/17 Time: 2316 Sepsis Assessment - Evaluation SIRS Criteria: temperature > 100.9 Hospital Course Summary Disclaimer: The visit summary below is not to be considered part of the above Progress Note.
[2017-10-03] MEDS: Oxycodone *IR* 5 MG TABLET PO PRN ×4 (08:30→21:28)
--- NOTE | 2017-10-03 08:34 | CT Scan Report ---
Indication: vomiting, hx renal stone PROCEDURE: CT abdomen pelvis wo con: Encounter: Initial Comparison: September 26, 2017 Technique: Axial CT images were performed through the abdomen and pelvis without intravenous contrast. Coronal and sagittal two-dimensional reformats. Automated Exposure Control and Iterative Reconstruction dose reducing techniques were utilized. Findings: The lung bases are stable. Intrathoracic stomach again noted. The liver, gallbladder, spleen, pancreas and adrenal glands are stable with small bilateral adrenal adenomas. Right kidney shows a small hyperdense cyst in the lower pole without obstructing stone. New left-sided double-J stent in place. There is persistent severe left hydronephrosis with stone debris in the lower pole calyces. No definite stone along the course of the stent. There is perinephric stranding in the left retroperitoneum extending inferiorly along the ureter. No bowel obstruction. Lytic lesion in the L3 vertebra has been seen on prior MRI. Impression: Interval stenting of the left ureter with persistent hydronephrosis. There is a preliminary report by [employer] radiologic. .
[2017-10-03] MEDS: NS 1,000 ML IV SCH ×2 (11:06→22:14)
[2017-10-03] MEDS: CEFTRIAXONE 1 G in NS 50 ML IV SCH (12:10)
--- NOTE | 2017-10-03 17:17 | Progress Note ---
- Date 10/03/17 Subjective: F/U: Septicemia with Ecoli, Ecoli UTI Feeling better since admission-feels IVF and antibiotics helping. Much less nausea, but not having much appetite. Still feels very tired and weak-sleeping most of the pain. Pain control, but only if he stays on top of his pain with his home pain medication. Breathing stable. No palpitations. Objective Vital signs: Temperature 98.4 F 10/03/17 15:19 Pulse Rate 101 H 10/03/17 15:33 Respiratory Rate 18 10/03/17 15:33 Blood Pressure 122/79 10/03/17 15:19 Pulse Oximetry 95 10/03/17 15:33 - Constitutional Present: well nourished, well developed, average body habitus, cooperative. Absent: combative, agitated, somnolent, obtunded - Routine HEENT Exam Head: Present: normocephalic, atraumatic Eye: Present: EOMI, PERRL ENT: Present: mucous membranes dry - Routine Respiratory Exam Present: decreased breath sounds, wheezes. Absent: respiratory distress - Routine Cardiovascular Exam Present: RRR, no murmur - Routine Abdominal Exam Present: soft, non distended, non tender. Absent: normoactive bowel sounds ( Decreased ) - Routine Extremities Exam Present: pulses intact. Absent: cyanosis, clubbing - Routine Skin Exam Present: warm - Routine Neurological Exam Present: alert, oriented X3, CN II-XII intact, moving all extremities, vision grossly intact, hearing grossly intact, normal speech. Absent: motor deficit, altered mental status - Routine Psychiatric Exam Present: normal affect, normal thought process, cooperative Results - Labs CBC & Chem 7: 10/03/17 03:49 10/03/17 03:49 Assessment and Plan (1) UTI (urinary tract infection) Current visit: Yes Status: Acute (2) Nephrolithiasis Current visit: Yes Status: Acute (3) Abdominal pain Current visit: Yes Status: Acute Assessment and Plan: Patient given IV ceftriaxone in the ED, started on IVF and supportive care. Will continue IVF overnight. Restart home pain meds, question some component of withdrawal given patient reports he has taken extra of his pain medications and he only gets 25pills a week. Urine CX and blood CX sent. Assessment Septicemia with E coli - 2 of 2 BC from ER draw positive Urinary tract infection with E coli Recent kidney stone with stent placement Ab/Flank pain Immunosuppression secondary to chemo CAD CHF by history HTN COPD FER Nocturnal hypoxia - 4L Type II DM GERD Chronic constipation Chronic pain Lymphoma Depression Plan With positive BC for E coli and patient's immunocompromised status secondary to chemo, will change admission status to inpatient. Anticipate greater than 2 midnights of care needed. Continue with Rocephin for urinary coverage - check on pending sensitivities. Continue IVF for hydration. Initiate DuoNeb QID (and q4hr prn) along with budesonide 0.5mg BID due to COPD and wheezing. Continue home O2 at 4L when sleeping. Discussed about nicotine patch, but pt declines need for one. Continue Metoprolol, but hold lisinopril secondary to septicemia. Hold Jardiance due to septicemia. Monitor sugars. IV Zofran for nausea as needed. SCD ordered, but patient refusing secondary to discomfort. Will start Lovenox 40mg SQ daily. Will place consult for Dr Samaniego. Pt reports is scheduled for lab on 10/04. Monitor lab. Full code as pt's request Care to return to Nya Beckwith at time of discharge from [facility]. - Physician Narrative Narrative: Date: 10/03/17 Time: 1714 Hospital Course Summary Disclaimer: The visit summary below is not to be considered part of the above Progress Note. Hospital Course: 10/02/17 OBS admission Patient given IV ceftriaxone in the ED, started on IVF and supportive care. Will continue IVF overnight. Restart home pain meds, question some component of withdrawal given patient reports he has taken extra of his pain medications and he only gets 25pills a week. Urine CX and blood CX sent. 10/03/17 With positive BC for E coli and patient's immunocompromised status secondary to chemo, will change admission status to inpatient. Anticipate greater than 2 midnights of care needed. Continue with Rocephin for urinary coverage - check on pending sensitivities. Continue IVF for hydration. Initiate DuoNeb QID (and q4hr prn) along with budesonide 0.5mg BID due to COPD and wheezing. Continue home O2 at 4L when sleeping. Discussed about nicotine patch, but pt declines need for one. Continue Metoprolol, but hold lisinopril secondary to septicemia. Hold Jardiance due to septicemia. Monitor sugars. IV Zofran for nausea as needed. SCD ordered, but patient refusing secondary to discomfort. Will start Lovenox 40mg SQ daily. Will place consult for Dr Samaniego. Pt reports is scheduled for lab on 10/04. Monitor lab. Full code as pt's request Care to return to Nya Beckwith at time of discharge from [facility].
[2017-10-03] MEDS ORDERED: ALBUTEROL/IPRATROPIUM 2.5mg-0.5mg/3ml NEB AEROSOL PRN (17:23)
[2017-10-03] MEDS ORDERED: POLYETHYL GLYCOL 3350 17gm PACKET PO PRN (17:24)
[2017-10-03] MEDS ORDERED: BISACODYL 10 MG SUPPOSITORY RECTALLY PRN (17:24)
[2017-10-03] MEDS: BUDESONIDE INH.SOLN 0.5mg/2ml NEB AEROSOL SCH (19:31)
[2017-10-03] MEDS: ALBUTEROL/IPRATROPIUM 2.5mg-0.5mg/3ml NEB AEROSOL SCH (19:31)
[2017-10-03] MEDS ORDERED: GABAPENTIN 100 MG CAPSULE PO SCH (21:00)
[2017-10-03] MEDS: ATORVASTATIN 40 MG TABLET PO SCH (21:39)
[2017-10-03] MEDS: MIRTAZAPINE 15 MG TABLET PO SCH (21:39)
[2017-10-03] MEDS: SALINE FLUSH 10ml SYRINGE IVF PRN (22:14)
[2017-10-04] MEDS: Oxycodone *IR* 5 MG TABLET PO PRN ×5 (01:53→19:59)
[2017-10-04] MEDS: OMEPRAZOLE 20 MG CAPSULE PO SCH (05:56)
[2017-10-04] MEDS: NS 1,000 ML IV SCH ×2 (05:56→19:56)
[2017-10-04] MEDS: BUDESONIDE INH.SOLN 0.5mg/2ml NEB AEROSOL SCH ×2 (06:45→20:12)
[2017-10-04] MEDS: ALBUTEROL/IPRATROPIUM 2.5mg-0.5mg/3ml NEB AEROSOL SCH ×4 (06:45→20:12)
--- NOTE | 2017-10-04 08:39 | Consult Note ---
<Rosa Gao - Last Filed: 10/04/17 14:34> Oncology HPI - Data of Consult Patient: known to practice within the last 3 years Consult date: 10/04/17 Requesting Physician: Sanju Angeles MD Primary Care Provider: Nya Beckwith APRN Family Provider: Nya Beckwith APRN - Consult Narrative History of present illness: 62-year-old male, well-known to Dr. Samaniego with history of head and neck cancer , progressive disease with bone metastasis, currently receiving concurrent chemoradiation presented to [facility] emergency department 2 days ago with increased abdominal pain, fever, chills, nausea and vomiting. He was noted to have acute UTI, and is receiving antibiotics. Patient had recent hospitalization with large left kidney stone, status post lithotripsy and stent placement earlier in September 2017 at [facility]. At time of intake, he is alone in his room. States feeling improved, less pain and no fever. Denies nausea/ vomiting. Continues with urinary urgency and urinary incontinence. Denies hematuria. 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 --01/22/16: Robotic assisted micro laryngoscopy, esophagoscopy, right radical tonsillectomy, right modified neck dissection. --06/10/17: Fine needle aspiration of the right, Level IIB, neck lymph node. Metastatic poorly differentiated squamous cell carcinoma. --07/08/17: L3 bone biopsy, metastatic poorly differentiated squamous cell carcinoma. --07/07/17: Insertion of Port-A-Cath --08/03/17 [facility] consultation for depression. --08/10/17: Began Carboplatin weekly for palliation. Review of Systems - Constitutional Constitutional: Present: fatigue, fever(s) - EENT Eyes: Present: blurry vision. Absent: diplopia Mouth/Throat: Absent: sore throat Additional comments: recent yeast stomatitis - Cardiovascular Cardiovascular: Present: dyspnea on exertion. Absent: chest pain - Respiratory Respiratory: Present: cough, dyspnea on exertion Additional comments: Chronic symptoms. Denies worsening or increased symptoms. - Gastrointestinal Gastrointestinal: Present: as per HPI. Absent: nausea, vomiting - Genitourinary Genitourinary: Present: urinary incontinence, urinary urgency - Musculoskeletal Musculoskeletal: Present: back pain Additional comments: chronic lumbar back pain - Neurological Neurological: Absent: headache(s), vertigo - Psychiatric Psychiatric: Present: depression. Absent: suicidal ideation (history of anxiety /depression. States feeling improved with current medications. Denies suicidal ideation) PFSH Medical History Updates: Cerebrovascular accident, Congestive heart failure, Hypertension, x14 mini strokes;. Chronic obstructive pulmonary disease;. Hiatal hernia, Acid reflux;. Hematologic Hx of blood clots;. Musculoskeletal Arthritis;. Endocrine/metabolic Diabetes mellitus type II; Surgical History: Multiple hernia repairs. Microlaryngoscopy. Right radical tonsillectomy. Modified neck dissection. TURP. - Social History Smoking status: Current every day smoker (patient states is not smoking on my questioning) second hand exposure: Yes (daughter lives with patient. She is a smoker, states does not smoke in home) Current occupational status: disabled Does patient use chewing tobacco?: No Current residence: Apartment/Private Home Medications Home Medications Medication Instructions Recorded Confirmed Type Albuterol HFA Inhaler [Ventolin 2 puff ORAL INH Q4HR PRN 08/27/17 10/02/17 History Hfa 90 mcg/actuation] Albuterol Sulfate 2.5 mg AEROSOL DAILY 08/27/17 10/02/17 History Ascorbate Calcium [Vitamin C] 500 mg PO DAILY 08/27/17 10/02/17 History Aspirin 650 mg PO DAILY 08/27/17 10/02/17 History Atorvastatin [Lipitor] 40 mg PO HS 08/27/17 10/02/17 History Bisacodyl [Laxative] 5 mg PO DAILY 08/27/17 10/02/17 History Budesonide/Formoterol Fumarate 1 puff IH DAILY PRN 08/27/17 10/02/17 History [Symbicort 80-4.5 Mcg Inhaler] Cholecalciferol (Vitamin D3) 2,000 unit PO DAILY 08/27/17 10/02/17 History [Vitamin D3] Empagliflozin [Jardiance] 10 mg PO DAILY 08/27/17 10/02/17 History Gabapentin [Neurontin] 300 mg PO QID 08/27/17 10/02/17 History Ketoconazole [Ketoconazole] 1 applicatio TOP BID 08/27/17 10/02/17 History Lisinopril [Prinivil] 5 mg PO DAILY 08/27/17 10/02/17 History Metoprolol Succinate 25 mg PO DAILY 08/27/17 10/02/17 History Multivitamin [One Daily] 1 tab PO DAILY 08/27/17 10/02/17 History Omeprazole [Prilosec] 20 mg PO ACB 08/27/17 10/02/17 History Peg 3350 238 G Bottle [Miralax] 17 gm PO DAILY PRN 08/27/17 10/02/17 History Ranitidine [Zantac] 150 mg PO DAILY 08/27/17 10/02/17 History Tiotropium Handihaler [Spiriva] 1 cap ORAL INH DAILY 08/27/17 10/02/17 History Dicyclomine [Bentyl] 10 mg PO DAILY PRN 10/02/17 10/02/17 History Ondansetron HCl [Ondansetron HCl] 8 mg PO TID PRN 10/02/17 10/02/17 History Oxycodone HCl [Oxycodone HCl] 10 mg PO Q4-6HR PRN 10/02/17 10/02/17 History fentaNYL [Fentanyl] 1 patch TD Q72H 10/02/17 10/02/17 History Allergies Allergy/AdvReac Type Severity Reaction Status Date / Time No Known Allergies Allergy Verified 10/02/17 18:40 Exam Vital signs: Temperature 99.6 F 10/04/17 07:25 Pulse Rate 114 H 10/04/17 07:25 Respiratory Rate 22 10/04/17 07:25 Blood Pressure 121/75 10/04/17 07:25 Pulse Oximetry 92 10/04/17 07:25 - Constitutional no acute distress, well developed - Routine HEENT Exam Head: Present: normocephalic Eye: Present: EOMI ENT: Present: mucous membranes moist (white coating on tongue. No discrete lesions) - Routine Neck Exam Present: supple. Absent: lymphadenopathy - Routine Respiratory Exam Present: decreased breath sounds, distant breath sounds. Absent: wheezes, crackles - Routine Cardiovascular Exam Present: RRR. Absent: no murmur - Routine Abdominal Exam Present: soft, non distended. Absent: organomegaly - Routine Extremities Exam Present: no edema, full ROM - Routine Skin Exam Present: intact, dry - Routine Neurological Exam Present: alert, oriented X3, moving all extremities - Routine Psychiatric Exam Present: normal affect, cooperative Oncology Results - Labs CBC & Chem 7: 10/04/17 04:06 10/04/17 04:06 Labs: Short CBC 10/04/17 Range/Units 04:06 WBC 6.7 (4.5-11.0) T/MM3 Hgb 11.5 L (13.5-17.5) GM/DL Hct 33.2 L (41-53) % Plt Count 147 (130-400) T/MM3 [facility] 10/04/17 04:06 Sodium 135 Potassium 3.8 Chloride 100 Carbon Dioxide 22 BUN 14.0 Creatinine 0.6 L D Glucose 88 Calcium 8.5 - Impressions Date of Exam: 10/02/17 Ordering Provider: Sam Castaneda DO Type of Exam(s): CT abdomen pelvis wo con Reason for Exam(s): vomiting, hx renal stone Indication: vomiting, hx renal stone PROCEDURE: CT abdomen pelvis wo con: Encounter: Initial Comparison: September 26, 2017 Technique: Axial CT images were performed through the abdomen and pelvis without intravenous contrast. Coronal and sagittal two-dimensional reformats. Automated Exposure Control and Iterative Reconstruction dose reducing techniques were utilized. Findings: The lung bases are stable. Intrathoracic stomach again noted. The liver, gallbladder, spleen, pancreas and adrenal glands are stable with small bilateral adrenal adenomas. Right kidney shows a small hyperdense cyst in the lower pole without obstructing stone. New left-sided double-J stent in place. There is persistent severe left hydronephrosis with stone debris in the lower pole calyces. No definite stone along the course of the stent. There is perinephric stranding in the left retroperitoneum extending inferiorly along the ureter. No bowel obstruction. Lytic lesion in the L3 vertebra has been seen on prior MRI. Impression: Interval stenting of the left ureter with persistent hydronephrosis. There is a preliminary report by [employer]. . Assessment and Plan Assessment and Plan: Assessment 1. 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 Current treatment carboplatin/radiation to lumbar spine. 2. Large left kidney stone, status post lithotripsy and stent placement September 2017 at [facility]. Now with UTI in immunosuppressed patient. 3. Anxiety/depression. 4. Yeast stomatitis. 5. Multiple comorbidities, COPD, type 2 diabetes mellitus, coronary artery disease, history of stroke, history DVT. Past smoking history-states quit smoking Aug 2017. Plan Continue antibiotics, supportive care. Resume Nystatin 5 cc TID. Will follow counts. <DanetteKyler Sara - Last Filed: 10/04/17 17:27> Oncology HPI - Data of Consult Requesting Physician: Sanju Angeles MD Primary Care Provider: Nya Beckwith APRN Family Provider: Nya Beckwith APRN Exam Vital signs: Temperature 100.3 F 10/04/17 15:00 Pulse Rate 107 H 10/04/17 15:00 Respiratory Rate 22 10/04/17 15:00 Blood Pressure 111/83 10/04/17 15:00 Pulse Oximetry 95 10/04/17 15:00 - Routine Neck Exam Present: lymphadenopathy (1.5 cm right supraclavicular lymph node) Oncology Results - Labs CBC & Chem 7: 10/04/17 04:06 10/04/17 04:06 Labs: Short CBC 10/04/17 Range/Units 04:06 WBC 6.7 (4.5-11.0) T/MM3 Hgb 11.5 L (13.5-17.5) GM/DL Hct 33.2 L (41-53) % Plt Count 147 (130-400) T/MM3 BMP 10/04/17 04:06 Sodium 135 Potassium 3.8 Chloride 100 Carbon Dioxide 22 BUN 14.0 Creatinine 0.6 L D Glucose 88 Calcium 8.5 Selected Entries 10/04/17 15:00 Temperature 100.3 F Laboratory Tests 10/02/17 10/02/17 10/02/17 18:35 19:54 19:54 WBC 7.1 Neut % (Auto) Neut # (Auto) Neutrophils % (Manual) 75.0 H Neutrophils # (Manual) 5.3 Sodium Potassium Chloride Carbon Dioxide BUN Creatinine Urine WBC 50-200 H Influenza Type A (PCR) Negative Influenza Type B (PCR) Negative 10/03/17 10/04/17 10/04/17 03:49 04:06 04:06 WBC 7.2 6.7 Neut % (Auto) 83.5 H Neut # (Auto) 5.6 Neutrophils % (Manual) 79.0 H Neutrophils # (Manual) 5.7 Sodium 135 Potassium 3.8 Chloride 100 Carbon Dioxide 22 BUN 14.0 Creatinine 0.6 L D Urine WBC Influenza Type A (PCR) Influenza Type B (PCR) Urine culture has grown Escherichia coli. Blood cultures 2 have grown E Coli Assessment and Plan Assessment and Plan: Patient examined, chart reviewed. Agree with documentation by Cande Gao except for correction and exam of lymph node. Blood cultures positive for Escherichia coli. Currently with UTI and sepsis. He is immunocompromised patient is on chemotherapy. Counts are currently adequate. He does have fever to 100.[address] Angeles and will continue IV antibiotics. Hold chemotherapy this week..
[2017-10-04] MEDS: GABAPENTIN 300 MG CAPSULE PO SCH ×4 (09:10→20:00)
[2017-10-04] MEDS: BuPROPion SR 150mg (12HR) TABLET PO SCH (09:10)
[2017-10-04] MEDS: ASPIRIN 325 MG TABLET PO SCH (09:10)
[2017-10-04] MEDS: CEFTRIAXONE 1 G in NS 50 ML IV SCH (12:10)
[2017-10-04] MEDS: RANITIDINE 150 MG TABLET PO SCH (12:13)
[2017-10-04 13:11] VITALS: BMI 26.9
--- NOTE | 2017-10-04 15:21 | Progress Note ---
- Date 10/04/17 Subjective: Brigido is feeling better today. He ate food today - the first time in 3 days. Nausea resolved. His breathing is doing well - just finished with a breathing treatment. He denies chest pain. He's been refusing SCDs. Objective Vital signs: Temperature 99.6 F 10/04/17 07:25 Pulse Rate 114 H 10/04/17 07:25 Respiratory Rate 20 10/04/17 14:55 Blood Pressure 121/75 10/04/17 07:25 Pulse Oximetry 97 10/04/17 14:55 Height/Weight/BMI: Height 1.78 m Weight 85.2 kg Body Mass Index 26.9 - Constitutional Present: no acute distress, well nourished, well developed - Routine HEENT Exam Head: Present: normocephalic Eye: Absent: conjunctival icterus, scleral injection ENT: Present: mucous membranes moist - Routine Respiratory Exam Present: decreased breath sounds, CTA bilaterally - Routine Cardiovascular Exam Present: RRR, S1, S2, tachycardia - Routine Abdominal Exam Present: soft, normoactive bowel sounds, non distended, non tender - Routine Extremities Exam Present: no edema, pulses intact - Routine Skin Exam Present: intact, dry, warm - Routine Neurological Exam Present: alert, oriented X3 - Routine Psychiatric Exam Present: normal affect, normal thought process, cooperative Results - Labs CBC & Chem 7: 10/04/17 04:06 10/04/17 04:06 Assessment and Plan (1) UTI (urinary tract infection) Current visit: Yes Status: Acute (2) Nephrolithiasis Current visit: Yes Status: Acute (3) Abdominal pain Current visit: Yes Status: Acute Assessment and Plan: Assessment Septicemia with E coli - 2 of 2 BC from ER draw positive Urinary tract infection with E coli Recent kidney stone with stent placement and persistent left hydronephrosis Ab/Flank pain Immunosuppression secondary to chemo Yeast stomatitis CAD CHF by history HTN COPD FER Nocturnal hypoxia - 4L Type II DM GERD Chronic constipation Chronic pain Lymphoma Depression Plan Continue Rocephin (day #3) for E. coli bacteremia/UTI. Improvement in intake today - decrease IVF to 50 ml/hr. BUN down to 14 and creatinine down to 0.6. BGM under fairly good control, even while holding Jardiance. BP stable even with holding lisinopril. Appreciate Dr. Samaniego's expertise. Continue DuoNeb/budesonide. D/W Dr. Angeles. DVT Prophylaxis: Lovenox GI Prophylaxis: Rantidine Resuscitation Status: Full Code - Time spent with patient Time with patient PN: 25 minutes - Physician Narrative Physician: Sanju Angeles MD Narrative: Date: 10/04/17 Time: 1618 Have independently interviewed and examined pt. Chart reviewed. Case discussed with CM and my GOLD LEAF GILDER. Care plan developed with my supervision; agree with above. Doing okay overall. Notes some f/c, but appetite improving and breathing well. Not having nausea or ab pain. His overall pain is controlled. Strength with slight improvement. Lungs: decreased, scattered wheeze; no distress CV: regular AB: soft nt/nd MSE: awake alert appropriate Plan: Continue with Rocephin for antimicrobial coverage. Continue Low Flow IVF for support. Monitor lab. Hospital Course Summary Disclaimer: The visit summary below is not to be considered part of the above Progress Note. Hospital Course: 10/02/17 OBS admission Patient given IV ceftriaxone in the ED, started on IVF and supportive care. Will continue IVF overnight. Restart home pain meds, question some component of withdrawal given patient reports he has taken extra of his pain medications and he only gets 25pills a week. Urine CX and blood CX sent. 10/03/17 With positive BC for E coli and patient's immunocompromised status secondary to chemo, will change admission status to inpatient. Anticipate greater than 2 midnights of care needed. Continue with Rocephin for urinary coverage - check on pending sensitivities. Continue IVF for hydration. Initiate DuoNeb QID (and q4hr prn) along with budesonide 0.5mg BID due to COPD and wheezing. Continue home O2 at 4L when sleeping. Discussed about nicotine patch, but pt declines need for one. Continue Metoprolol, but hold lisinopril secondary to septicemia. Hold Jardiance due to septicemia. Monitor sugars. IV Zofran for nausea as needed. SCD ordered, but patient refusing secondary to discomfort. Will start Lovenox 40mg SQ daily. Will place consult for Dr Samaniego. Pt reports is scheduled for lab on 10/04. Monitor lab. Full code as pt's request Care to return to [facility] [place] [facility] [place]/04/17 Continue Rocephin (day #3) for E. coli bacteremia/UTI. Improvement in intake today - decrease IVF to 50 ml/hr. BUN down to 14 and creatinine down to 0.6. BGM under fairly good control, even while holding Jardiance. Appreciate Dr. Samaniego's expertise.
[2017-10-04] MEDS: NYSTATIN 500,000 units/5 ml ORAL LIQUID PO SCH (19:59)
[2017-10-04] MEDS: ATORVASTATIN 40 MG TABLET PO SCH (20:00)
[2017-10-04] MEDS: MIRTAZAPINE 15 MG TABLET PO SCH (20:00)
[2017-10-05] MEDS: Oxycodone *IR* 5 MG TABLET PO PRN ×5 (00:44→20:51)
[2017-10-05] MEDS: OMEPRAZOLE 20 MG CAPSULE PO SCH (05:54)
[2017-10-05] MEDS: BUDESONIDE INH.SOLN 0.5mg/2ml NEB AEROSOL SCH ×2 (06:29→18:58)
[2017-10-05] MEDS: ALBUTEROL/IPRATROPIUM 2.5mg-0.5mg/3ml NEB AEROSOL SCH ×4 (06:29→18:58)
[2017-10-05] MEDS: NS 1,000 ML IV SCH (08:46)
[2017-10-05] MEDS: GABAPENTIN 300 MG CAPSULE PO SCH ×4 (08:48→20:51)
[2017-10-05] MEDS: RANITIDINE 150 MG TABLET PO SCH (08:48)
[2017-10-05] MEDS: BuPROPion SR 150mg (12HR) TABLET PO SCH (08:48)
[2017-10-05] MEDS: ACETAMINOPHEN 325 MG TABLET PO PRN ×2 (08:48→20:49)
[2017-10-05] MEDS: ASPIRIN 325 MG TABLET PO SCH (08:48)
[2017-10-05] MEDS: NYSTATIN 500,000 units/5 ml ORAL LIQUID PO SCH ×3 (08:49→20:49)
--- NOTE | 2017-10-05 09:10 | Progress Note ---
- Date 10/05/17 Subjective: Brigido had a fever this morning of 100.5. He didn't sleep well last night b/c of pain, but now his pain meds are scheduled and he feels better. Currently he rates his pain 4/10 to his left flank. He states that his breathing is doing very well on QID breathing treatments. I mentioned that his heart rate was fast -- he stated "that's what everyone has been saying". He feels dizzy but denies chest pain. He feels weak in general. His n/v has resolved and appetite returned yesterday. Objective Vital signs: Temperature 98.5 F 10/05/17 07:05 Pulse Rate 100 10/05/17 07:05 Respiratory Rate 24 10/05/17 07:05 Blood Pressure 122/75 10/05/17 07:05 Pulse Oximetry 91 10/05/17 07:05 Height/Weight/BMI: Height 1.78 m Weight 87.4 kg Body Mass Index 26.9 - Constitutional Present: no acute distress, well nourished, well developed, thin - Routine HEENT Exam Head: Present: normocephalic Eye: Present: PERRL. Absent: conjunctival icterus, scleral injection ENT: Present: mucous membranes dry, oropharynx clear - Routine Respiratory Exam Present: decreased breath sounds (Rt > Lt) - Routine Cardiovascular Exam Present: RRR, S1, S2, tachycardia - Routine Abdominal Exam Present: soft, normoactive bowel sounds, non distended, non tender - Routine Extremities Exam Present: no edema, pulses intact - Routine Skin Exam Present: intact, dry, warm - Routine Neurological Exam Present: alert, oriented X3, normal speech - Routine Psychiatric Exam Present: normal affect, normal thought process, cooperative Results - Labs CBC & Chem 7: 10/05/17 04:53 10/05/17 04:53 Assessment and Plan (1) UTI (urinary tract infection) Current visit: Yes Status: Acute (2) Nephrolithiasis Current visit: Yes Status: Acute (3) Abdominal pain Current visit: Yes Status: Acute Assessment and Plan: Assessment Septicemia with E coli - 2 of 2 BC from ER draw positive Urinary tract infection with E coli Recent kidney stone with stent placement and persistent left hydronephrosis Ab/Flank pain Hypokalemia - not POA Immunosuppression secondary to chemo Yeast stomatitis CAD CHF by history HTN COPD FER Nocturnal hypoxia - 4L Type II DM GERD Chronic constipation Chronic pain Lymphoma Depression Plan Continue Rocephin (day #4) for E. coli bacteremia/UTI. Tachycardic -- EKG repeated showing sinus tach (HR 114) with RBBB and frequent PVC. Q waves seen in V3/V4 also noted on EKG on admission. Tachycardia could be r/t fever -- Tylenol given. Decreased breath sounds especially RLL - will get CXR today. Continue IVF d/t tachycardia -- may dc pending results of CXR especially knowing his oral drive is improving. Received Toprol XL at 0848 this am. K 3.3 -- KDur ordered. Will continue to hold lisinopril - BP under good control and he is at risk for hypotension d/t illness and tachycardia. Per Dr. Samaniego -- holding chemo. DVT Prophylaxis: Lovenox GI Prophylaxis: other (omeprazole) Resuscitation Status: Full Code - Time spent with patient Time with patient PN: 25 minutes - Physician Narrative Physician: Sanju Angeles MD Narrative: Date: 10/05/17 Time: 1540 Have independently interviewed and examined pt. Chart reviewed. Case discussed with CM, Dr Petit, and my GROUTMAN. Care plan developed with my supervision; agree with above. Doing okay. Meds helping his pain. Bowels slow-about 2 days since last movement (reports goes every three days at home). Not feeling constipated or bloated. Eating well-no nausea or pain with chewing/swallowing. Breathing feels okay-not feeling increased congestion, cough, or SOA. Urinating well. Notes f/c and sweats intermittently. Lungs: decreased, no wheezes or distress CV: regular AB: soft nt MSE: awake alert appropriate Plan: In discussion with ONC, will recheck CT ab/pelvis to reassess hydronephrosis. If not resolving will need urological intervention. Hold tomorrow's dose of Lovenox in case of need for surgical intervention. CXR obtained showing possible pneumonia-add Azithromycin to Rocephin for enhanced lung coverage. Continue with pulmonary toilet. Potassium with decrease to 3.3 - will give IV potassium boluses. Monitor lab. Continue with supportive care. CM looking into discharge options other than return to live with his daughter- apparently tension in the relationship. Hospital Course Summary Disclaimer: The visit summary below is not to be considered part of the above Progress Note. Hospital Course: 10/02/17 OBS admission Patient given IV ceftriaxone in the ED, started on IVF and supportive care. Will continue IVF overnight. Restart home pain meds, question some component of withdrawal given patient reports he has taken extra of his pain medications and he only gets 25pills a week. Urine CX and blood CX sent. 10/03/17 With positive BC for E coli and patient's immunocompromised status secondary to chemo, will change admission status to inpatient. Anticipate greater than 2 midnights of care needed. Continue with Rocephin for urinary coverage - check on pending sensitivities. Continue IVF for hydration. Initiate DuoNeb QID (and q4hr prn) along with budesonide 0.5mg BID due to COPD and wheezing. Continue home O2 at 4L when sleeping. Discussed about nicotine patch, but pt declines need for one. Continue Metoprolol, but hold lisinopril secondary to septicemia. Hold Jardiance due to septicemia. Monitor sugars. SCD ordered, but patient refusing secondary to discomfort. Will start Lovenox 40mg SQ daily. Will place consult for Dr Samaniego. Pt reports is scheduled for lab on 10/04. Full code as pt's request Care to return to [facility] at time of discharge from [facility] [place]. 10/04/17 Continue Rocephin (day #3) for E. coli bacteremia/UTI. Improvement in intake today - decrease IVF to 50 ml/hr. BUN down to 14 and creatinine down to 0.6. BGM under fairly good control, even while holding Jardiance. Appreciate Dr. Samaniego's expertise. 10/05/17 Continue Rocephin (day #4) for E. coli bacteremia/UTI. Tachycardic -- EKG repeated showing sinus tach (HR 114) with RBBB and frequent PVC. Q waves seen in V3/V4 also noted on EKG on admission. Tachycardia could be r/t fever -- Tylenol given. Decreased breath sounds especially RLL - will get CXR today. Does show infiltrate. Add Azithromycin for enhanced pulmonary coverage. Continue IVF d/t tachycardia -- may dc pending results of CXR especially knowing his oral drive is improving. Received Toprol XL at 0848 this am. K 3.3 -- KDur ordered. Will continue to hold lisinopril - BP under good control and he is at risk for hypotension d/t illness and tachycardia. Per Dr. Samaniego -- holding chemo.
--- NOTE | 2017-10-05 10:34 | XRay Report ---
INDICATION: fever, decreased breath sounds right base PROCEDURE: CHEST 2-VIEWS UPRIGHT (PA & LAT) Encounter: Initial COMPARISON: July 21, 2017 FINDINGS: New airspace consolidation in the right lower lobe. No pleural effusion or pneumothorax. Mild interstitial prominence. Heart size and mediastinal contours are stable. Large hiatal hernia. Right IJ port catheter. Pulmonary vascularity is stable. Impression: Right lower lobe pneumonia or aspiration. .
[2017-10-05] MEDS: LIDOCAINE 1% INJ 10 MG, POTASSIUM CHLORIDE INJ 10 MEQ in NS 100 ML IV SCH ×4 (10:35→16:45)
--- NOTE | 2017-10-05 10:47 | Progress Note ---
Oncology Subjective Alone in room. Complains of generalized aching, "feel like I have the flu. Denies fever chills today, last fever yesterday. No nausea or vomiting. Continues with dysuria, urinary incontinence, denies hematuria. No constipation. General: + fever, no night sweats Eyes: No redness, no pain, no diplopia ENT: denies mouth pain or sores. no trouble swallowing Cardiac: No chest pain no palpitations Pulmonary: No cough, no shortness of breath, no wheezing Abdomen: No pain, no nausea vomiting, no diarrhea or constipation : + urgency and urinary incontinence. No hematuria Musculoskeletal: chronic back pain Neurological: No headaches, no focal weakness Skin: No rash, no sores Psychiatric: No anxiety, no depression Exam Vital signs: Temperature 98.5 F 10/05/17 07:05 Pulse Rate 100 10/05/17 07:05 Respiratory Rate 24 10/05/17 07:05 Blood Pressure 122/75 10/05/17 07:05 Pulse Oximetry 91 10/05/17 07:05 - Constitutional no acute distress, well developed - Routine HEENT Exam Head: Present: normocephalic Eye: Present: EOMI (tongue with white coating; no mouth sores) - Routine Neck Exam Present: supple, lymphadenopathy (+ right supraclavicular LAD; no cervical LAD) - Routine Respiratory Exam Present: decreased breath sounds. Absent: wheezes, crackles - Routine Cardiovascular Exam Present: RRR. Absent: no murmur - Routine Abdominal Exam Present: soft, non distended, non tender. Absent: mass - Routine Extremities Exam Present: no edema, full ROM - Routine Skin Exam Present: intact, dry. Absent: rash - Routine Neurological Exam Present: alert, oriented X3 - Routine Psychiatric Exam Present: normal affect, cooperative Oncology Results - Labs CBC & Chem 7: 10/06/17 04:46 10/06/17 04:46 Labs: Short CBC 10/05/17 Range/Units 04:53 WBC 4.5 (4.5-11.0) T/MM3 Hgb 10.3 L (13.5-17.5) GM/DL Hct 30.1 L (41-53) % Plt Count 148 (130-400) T/MM3 [facility] 10/05/17 04:53 Sodium 134 Potassium 3.3 L Chloride 100 Carbon Dioxide 25 BUN 11.0 Creatinine 0.6 L Glucose 114 H Calcium 8.0 L - Impressions Date of Exam: 10/05/17 Ordering Provider: Soumya Durán APRN Type of Exam(s): XR chest 2V Reason for Exam(s): fever, decreased breath sounds right base INDICATION: fever, decreased breath sounds right base PROCEDURE: CHEST 2-VIEWS UPRIGHT (PA & LAT) Encounter: Initial COMPARISON: July 21, 2017 FINDINGS: New airspace consolidation in the right lower lobe. No pleural effusion or pneumothorax. Mild interstitial prominence. Heart size and mediastinal contours are stable. Large hiatal hernia. Right IJ port catheter. Pulmonary vascularity is stable. Impression: Right lower lobe pneumonia or aspiration. Assessment and Plan Assessment and Plan: Assessment 1. 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 Current treatment carboplatin/radiation to lumbar spine. 2. Large left kidney stone, status post lithotripsy and stent placement September 2017 at via [facility]. Now with UTI in immunosuppressed patient. 3. + ecoli in blood and urine. 4. Anxiety/depression. Stable. 5. Yeast stomatitis. 6. Multiple comorbidities, COPD, type 2 diabetes mellitus, coronary artery disease, history of stroke, history DVT. Past smoking history-states quit smoking Aug 2017. Plan Dr. Petit will contact urologist today-recent stent placement and patient with + e-coli in blood- is this a concern with stent? Continue antibiotics, Nystatin and supportive care. - Time Spent With Patient Total time spent is greater than 50% in coordination of care (as documented) at patient's floor/unit and/or counseling patient: 25 - 35 minutes
[2017-10-05] MEDS: CEFTRIAXONE 1 G in NS 50 ML IV SCH (11:53)
[2017-10-05] MEDS: AZITHROMYCIN IV 500 MG in NS 250ml 250 ML IV SCH (15:01)
[2017-10-05] MEDS: ATORVASTATIN 40 MG TABLET PO SCH (20:49)
[2017-10-05] MEDS: MIRTAZAPINE 15 MG TABLET PO SCH (20:50)
[2017-10-06] MEDS: Oxycodone *IR* 5 MG TABLET PO PRN ×3 (00:32→09:19)
[2017-10-06] MEDS: OMEPRAZOLE 20 MG CAPSULE PO SCH (06:43)
[2017-10-06] MEDS: BUDESONIDE INH.SOLN 0.5mg/2ml NEB AEROSOL SCH ×2 (07:29→19:50)
[2017-10-06] MEDS: ALBUTEROL/IPRATROPIUM 2.5mg-0.5mg/3ml NEB AEROSOL SCH ×4 (07:30→19:50)
--- NOTE | 2017-10-06 08:45 | CT Scan Report ---
Indication: f/u hydronephrosis PROCEDURE: CT abdomen pelvis wo con: Encounter: Initial Comparison: October 02, 2017 Technique: Axial CT images were performed through the abdomen and pelvis without intravenous contrast. Coronal and sagittal two-dimensional reformats. Automated Exposure Control and Iterative Reconstruction dose reducing techniques were utilized. Findings: The lung bases are clear. Intrathoracic stomach. The unenhanced contours of the liver are unremarkable. Gallbladder is normal. The spleen, pancreas and adrenal glands are stable. Right kidney is unchanged without renal or ureteral stone disease. Double-J stent in the left ureter with left renal cysts and lower pole left renal stones. Stone burden is grossly stable. Improving left hydronephrosis, now mild. No stone burden seen along the course of the stent in the left ureter. Bladder is grossly normal. No evidence of a bowel obstruction. Moderate stool throughout the colon. Bone windows are unchanged. Impression: Improving left sided stented hydronephrosis. .
[2017-10-06] MEDS: NYSTATIN 500,000 units/5 ml ORAL LIQUID PO SCH ×3 (09:18→20:59)
[2017-10-06] MEDS: ASPIRIN 325 MG TABLET PO SCH (09:18)
[2017-10-06] MEDS: GABAPENTIN 300 MG CAPSULE PO SCH ×4 (09:18→20:59)
[2017-10-06] MEDS: BuPROPion SR 150mg (12HR) TABLET PO SCH (09:18)
[2017-10-06] MEDS: RANITIDINE 150 MG TABLET PO SCH (09:20)
--- NOTE | 2017-10-06 10:50 | Progress Note ---
- Date 10/06/17 Subjective: Overall, Brigido is feeling better, though he needs to stay on top of his pain. It works best to get felipe every 4 hours, but sometimes it's late, which creates more pain. He denies shortness of breath and denies a cough. He reports that ever since a procedure 3 years ago, his right lung was damaged and he was told it would never be the same. He has not had fever since yesterday am. Appetite is stable. He is very worried about income - they have applied for family care stipend through the [employer] but despite multiple efforts to contact them they still haven't heard back from them. Also he is looking forward to his daughter's bday green party on Wednesday and going fishing with his grandson, and is hopeful he will be home by then. Objective Vital signs: Temperature 97.3 F 10/06/17 08:00 Pulse Rate 90 10/06/17 08:00 Respiratory Rate 18 10/06/17 08:00 Blood Pressure 105/67 10/06/17 08:00 Pulse Oximetry 98 10/06/17 08:00 Height/Weight/BMI: Height 1.78 m Weight 89 kg Body Mass Index 26.9 - Constitutional Present: no acute distress, well nourished, well developed - Routine HEENT Exam Head: Present: normocephalic Eye: Present: PERRL. Absent: conjunctival icterus, scleral injection ENT: Present: mucous membranes moist - Routine Respiratory Exam Present: decreased breath sounds (slight decrease in RLL - improved from yest.) - Routine Cardiovascular Exam Present: RRR, S1, S2 - Routine Abdominal Exam Present: soft, normoactive bowel sounds, non distended, non tender - Routine Extremities Exam Present: no edema, pulses intact - Routine Musculoskeletal Exam Musculoskeletal: Present: moving extremities well - Routine Skin Exam Present: intact, dry, warm - Routine Neurological Exam Present: alert, oriented X3, normal speech - Routine Psychiatric Exam Present: normal affect, normal thought process, cooperative Results - Labs CBC & Chem 7: 10/06/17 04:46 10/06/17 04:46 Assessment and Plan (1) UTI (urinary tract infection) Current visit: Yes Status: Acute (2) Nephrolithiasis Current visit: Yes Status: Acute (3) Abdominal pain Current visit: Yes Status: Acute Assessment and Plan: Assessment Septicemia with E coli - 2 of 2 BC from ER draw positive Urinary tract infection with E coli RLL pneumonia - dx 10/05/17 Recent kidney stone with stent placement and persistent left hydronephrosis - improving Ab/Flank pain Hypokalemia - not POA Immunosuppression secondary to chemo Yeast stomatitis CAD CHF by history HTN COPD FER Nocturnal hypoxia - 4L Type II DM GERD Chronic constipation Chronic pain Lymphoma Depression Plan Continue Rocephin (day #5) for E. coli bacteremia/UTI. Azithro was started yesterday for RLL pneumonia. Maintaining sats on room air this am. Afebrile; WBC decreased to 2.9 today. HR has decreased from 100s to 70-90 today. DC IVF. K improved to 3.7. Continue to hold Lisinopril - BP 105/67 this am. Schedule Roxicodone q4h. Pt concerned about pain control upon discharge - will need to discuss with Dr. Samaniego. Hope for discharge in the next 1-[address] Angeles and CM. DVT Prophylaxis: Lovenox GI Prophylaxis: other (omeprazole) Resuscitation Status: Full Code - Time spent with patient Time with patient PN: 25 minutes - Physician Narrative Physician: Sanju Angeles MD Narrative: Date: 10/06/17 Time: 1046 Have independently interviewed and examined pt. Chart reviewed. Case discussed with CM and my RFID DEVELOPER. Care plan developed with my supervision; agree with above. Doing well today. Breathing stable-not having increased cough or congestion. Eating well. Not having F/C. Lungs: decreased, little air movement. No distress CV: regular MSE: awake alert appropriate Plan: Continue with Rocephin and azithromycin for coverage. CT showing decreased hydronephrosis. Not seeing temp elevations. Encourage ambulation. Hope for discharge in near future if continues to do well and not have temp elevations. Hospital Course Summary Disclaimer: The visit summary below is not to be considered part of the above Progress Note. Hospital Course: 10/02/17 OBS admission Patient given IV ceftriaxone in the ED, started on IVF and supportive care. Will continue IVF overnight. Restart home pain meds, question some component of withdrawal given patient reports he has taken extra of his pain medications and he only gets 25pills a week. Urine CX and blood CX sent. 10/03/17 With positive BC for E coli and patient's immunocompromised status secondary to chemo, will change admission status to inpatient. Anticipate greater than 2 midnights of care needed. Continue with Rocephin for urinary coverage - check on pending sensitivities. Continue IVF for hydration. Initiate DuoNeb QID (and q4hr prn) along with budesonide 0.5mg BID due to COPD and wheezing. Continue home O2 at 4L when sleeping. Discussed about nicotine patch, but pt declines need for one. Continue Metoprolol, but hold lisinopril secondary to septicemia. Hold Jardiance due to septicemia. Monitor sugars. SCD ordered, but patient refusing secondary to discomfort. Will start Lovenox 40mg SQ daily. Will place consult for Dr Samaniego. Pt reports is scheduled for lab on 10/04. Full code as pt's request Care to return to [facility] at time of discharge from [facility] [place]. 10/04/17 Continue Rocephin (day #3) for E. coli bacteremia/UTI. Improvement in intake today - decrease IVF to 50 ml/hr. BUN down to 14 and creatinine down to 0.6. BGM under fairly good control, even while holding Jardiance. Appreciate Dr. Samaniego's expertise. 10/05/17 Continue Rocephin (day #4) for E. coli bacteremia/UTI. Tachycardic -- EKG repeated showing sinus tach (HR 114) with RBBB and frequent PVC. Q waves seen in V3/V4 also noted on EKG on admission. Tachycardia could be r/t fever -- Tylenol given. Decreased breath sounds especially RLL - will get CXR today. Does show infiltrate. Add Azithromycin for enhanced pulmonary coverage. Continue IVF d/t tachycardia -- may dc pending results of CXR especially knowing his oral drive is improving. Received Toprol XL at 0848 this am. K 3.3 -- KDur ordered. Will continue to hold lisinopril - BP under good control and he is at risk for hypotension d/t illness and tachycardia. Per Dr. Samaniego -- holding chemo. 10/06/17 Continue Rocephin (day #5) for E. coli bacteremia/UTI. Azithromycin was started yesterday for RLL pneumonia. Maintaining sats on room air this am. Afebrile; WBC decreased to 2.9 today. HR has decreased from 100s to 70-90 today. DC IVF. K improved to 3.7. Continue to hold Lisinopril - BP 105/67 this am. Schedule Roxicodone q4h. Pt concerned about pain control upon discharge - will need to discuss with Dr. Samaniego. Hope for discharge in the next 1-2 days.
[2017-10-06] MEDS: NS 1,000 ML IV SCH (11:10)
[2017-10-06] MEDS: CEFTRIAXONE 1 G in NS 50 ML IV SCH (11:35)
[2017-10-06] MEDS: Oxycodone *IR* 5 MG TABLET PO SCH ×3 (13:27→21:00)
[2017-10-06] MEDS: AZITHROMYCIN IV 500 MG in NS 250ml 250 ML IV SCH (13:49)
--- NOTE | 2017-10-06 16:48 | Progress Note ---
Oncology Subjective Doing better. He would like to go home. Repeat CT scan showed improvement of the hydronephrosis. Exam Vital signs: Temperature 98.6 F 10/06/17 16:00 Pulse Rate 90 10/06/17 16:00 Respiratory Rate 20 10/06/17 16:00 Blood Pressure 109/72 10/06/17 16:00 Pulse Oximetry 94 10/06/17 16:00 - Constitutional no acute distress, well nourished - Routine Neck Exam Comments: Scar in the neck, No change - Routine Respiratory Exam Absent: rales, stridor, wheezes - Routine Cardiovascular Exam Present: RRR - Routine Abdominal Exam Present: soft, normoactive bowel sounds Oncology Results - Labs CBC & Chem 7: 10/06/17 04:46 10/06/17 04:46 Labs: Short CBC 10/06/17 Range/Units 04:46 WBC 2.9 L (4.5-11.0) T/MM3 Hgb 10.1 L (13.5-17.5) GM/DL Hct 29.6 L (41-53) % Plt Count 152 (130-400) T/MM3 BMP 10/06/17 04:46 Sodium 139 Potassium 3.7 Chloride 105 Carbon Dioxide 26 BUN 12.0 Creatinine 0.5 L Glucose 122 H Calcium 8.4 Assessment and Plan Assessment and Plan: Assessment 1. 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 On XRT + wkly Carbo. 2. Large left kidney stone, status post lithotripsy and stent placement September 2017 . Kaycee improved. 3. + ecoli in blood and urine on antibiotics.. 4. Anxiety/depression. Stable. 5. Yeast stomatitis. 6. Multiple comorbidities, COPD, type 2 diabetes mellitus, coronary artery disease, history of stroke, history DVT. Past smoking history-states quit smoking Aug 2017. 7. Neutropenia due to chemotherapy. Monitor CBC the patient may need G-CSF. Plan I discussed the case with his urologist, with recommendation to continue treatment with antibiotics and repeat the scans. The scan was repeated and showed improvement of the hydronephrosis. - Time Spent With Patient Total time spent is greater than 50% in coordination of care (as documented) at patient's floor/unit and/or counseling patient: less than 15 minutes
[2017-10-06] MEDS: MIRTAZAPINE 15 MG TABLET PO SCH (20:59)
[2017-10-06] MEDS: ATORVASTATIN 40 MG TABLET PO SCH (20:59)
[2017-10-06] MEDS: SALINE FLUSH 10ml SYRINGE IVF PRN (21:04)
[2017-10-07] MEDS: Oxycodone *IR* 5 MG TABLET PO SCH ×6 (01:23→20:33)
[2017-10-07] MEDS: SALINE FLUSH 10ml SYRINGE IVF PRN (04:56)
[2017-10-07] MEDS: OMEPRAZOLE 20 MG CAPSULE PO SCH (06:04)
[2017-10-07] MEDS: BUDESONIDE INH.SOLN 0.5mg/2ml NEB AEROSOL SCH ×2 (07:40→19:47)
[2017-10-07] MEDS: ALBUTEROL/IPRATROPIUM 2.5mg-0.5mg/3ml NEB AEROSOL SCH ×4 (07:40→19:47)
[2017-10-07] MEDS: ASPIRIN 325 MG TABLET PO SCH (08:35)
[2017-10-07] MEDS: BuPROPion SR 150mg (12HR) TABLET PO SCH (08:35)
[2017-10-07] MEDS: GABAPENTIN 300 MG CAPSULE PO SCH ×4 (08:35→20:33)
[2017-10-07] MEDS: RANITIDINE 150 MG TABLET PO SCH (08:35)
[2017-10-07] MEDS: NYSTATIN 500,000 units/5 ml ORAL LIQUID PO SCH ×3 (08:36→20:33)
--- NOTE | 2017-10-07 11:08 | Progress Note ---
<Rosa Gao - Last Filed: 10/07/17 14:59> Oncology Subjective Alert/ oriented. States feeling better, no fever/chills, no N/V. Eating better. Urine frequency persists, but no dysuria. Chronic pain persists, but lessened and states relief w/ prn meds. General: No fever, no night sweats Eyes: No redness, no pain, no diplopia ENT: No mouth sores, no trouble swallowing Cardiac: No chest pain no palpitations Pulmonary: + rare non prod. cough, no shortness of breath, no wheezing Abdomen: No pain, no nausea vomiting, no diarrhea or constipation : + frequency, no dysuria, or hematuria Musculoskeletal: chronic back pain Neurological: No headaches, no focal weakness Skin: No rash, no sores Psychiatric: No anxiety, no depression Exam Vital signs: Temperature 98.9 F 10/07/17 09:00 Pulse Rate 89 10/07/17 09:00 Respiratory Rate 18 10/07/17 10:54 Blood Pressure 125/73 10/07/17 09:00 Pulse Oximetry 96 10/07/17 10:54 - Constitutional no acute distress, well nourished, well developed - Routine HEENT Exam Head: Present: normocephalic Eye: Present: EOMI ENT: Present: mucous membranes moist - Routine Neck Exam Present: supple, lymphadenopathy (right supraclavicular) - Routine Respiratory Exam Present: decreased breath sounds. Absent: wheezes, crackles - Routine Cardiovascular Exam Present: RRR, no murmur - Routine Abdominal Exam Present: soft, non distended, non tender - Routine Extremities Exam Present: no edema, full ROM - Routine Back/Spine/Pelvis Exam Back/Spine: Absent: vertebral tenderness - Routine Skin Exam Present: intact, dry, pallor - Routine Neurological Exam Present: alert, oriented X3 - Routine Psychiatric Exam Present: normal affect, cooperative Oncology Results - Labs CBC & Chem 7: 10/07/17 04:56 10/07/17 04:56 Labs: Short CBC 10/07/17 Range/Units 04:56 WBC 2.6 L (4.5-11.0) T/MM3 Hgb 10.3 L (13.5-17.5) GM/DL Hct 30.6 L (41-53) % Plt Count 160 (130-400) T/MM3 [facility] 10/07/17 04:56 Sodium 141 Potassium 3.8 Chloride 102 Carbon Dioxide 27 BUN 10.0 Creatinine 0.6 L Glucose 118 H Calcium 8.9 Assessment and Plan Assessment and Plan: Assessment 1. 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 On XRT + wkly Carbo. 2. Large left kidney stone, status post lithotripsy and stent placement September 2017 . Cerrillos improved. 3. + ecoli in blood and urine on antibiotics.. 4. Anxiety/depression. Stable. 5. Yeast stomatitis. Improved. 6. Multiple comorbidities, COPD, type 2 diabetes mellitus, coronary artery disease, history of stroke, history DVT. Past smoking history-states quit smoking Aug 2017. 7. Neutropenia due to chemotherapy. WBC today 10/07/17 2.6, ANC is 1.5. Will give Granix 300 mcg X1. Plan Continue supportive care, antibiotics, and close f/u. To receive Granix X1 today. Discussed w/ patient. Has no questions. Dr. Pierre plans consult with Infectious Disease tomorrow for recommendations on ATB/length of treatment. - Time Spent With Patient Total time spent is greater than 50% in coordination of care (as documented) at patient's floor/unit and/or counseling patient: 25 - 35 minutes <Kyler Samaniego - Last Filed: 10/07/17 20:56> Exam Vital signs: Temperature 98.2 F 10/07/17 17:00 Pulse Rate 92 10/07/17 17:00 Respiratory Rate 22 10/07/17 19:49 Blood Pressure 115/71 10/07/17 17:00 Pulse Oximetry 94 10/07/17 19:49 Oncology Results - Labs CBC & Chem 7: 10/07/17 04:56 10/07/17 04:56 Labs: Short CBC 10/07/17 Range/Units 04:56 WBC 2.6 L (4.5-11.0) T/MM3 Hgb 10.3 L (13.5-17.5) GM/DL Hct 30.6 L (41-53) % Plt Count 160 (130-400) T/MM3 [facility] 10/07/17 04:56 Sodium 141 Potassium 3.8 Chloride 102 Carbon Dioxide 27 BUN 10.0 Creatinine 0.6 L Glucose 118 H Calcium 8.9 Assessment and Plan Assessment and Plan: Patient examined chart reviewed. Agree with documentation of Cande Gao. G CSF for neutropenia with infection. I participated in the development of the plan of care of this patient. - Time Spent With Patient Total time spent is greater than 50% in coordination of care (as documented) at patient's floor/unit and/or counseling patient:
[2017-10-07] MEDS: CEFTRIAXONE 1 G in NS 50 ML IV SCH (13:05)
--- NOTE | 2017-10-07 14:30 | Progress Note ---
- Date 10/07/17 Subjective: The patient was seen this afternoon. He states he is feeling better. His left side pain that was severe with his kidney stone is now better. He does have some abdominal and back pain that he relates to his underlying cancer. He states he is breathing normally and is on 4 L of oxygen when he lies down. He states he is eating and drinking well. He is having normal bowel movements and urinating well. Overall he is feeling better and is anxious to go home tomorrow if possible. His grandson is having a birthday constitution party on Wednesday. Objective Vital signs: Temperature 98.9 F 10/07/17 09:00 Pulse Rate 89 10/07/17 09:00 Respiratory Rate 18 10/07/17 10:54 Blood Pressure 125/73 10/07/17 09:00 Pulse Oximetry 96 10/07/17 10:54 Height/Weight/BMI: Height 1.78 m Weight 87.3 kg Body Mass Index 26.9 Comments: He has been afebrile for 2 days now. Blood pressure 125/73, O2 sat 93% on 4 L, heart rate 89 GEN-alert, oriented, no acute distress HEENT-sclera anicteric, oropharynx is moist CV-rate and rhythm CHEST-clear to auscultation ABD-soft, nontender with positive bowel sounds -no Gandhi EXT-trace edema NEURO-no focal deficits SKIN-warm and dry Results - Labs CBC & Chem 7: 10/07/17 04:56 10/07/17 04:56 Labs: ANC is 1.5 - Impressions Type of Exam(s): CT abdomen pelvis wo con Reason for Exam(s): f/u hydronephrosis Indication: f/u hydronephrosis PROCEDURE: CT abdomen pelvis wo con: Encounter: Initial Comparison: October 02, 2017 Technique: Axial CT images were performed through the abdomen and pelvis without intravenous contrast. Coronal and sagittal two-dimensional reformats. Automated Exposure Control and Iterative Reconstruction dose reducing techniques were utilized. Findings: The lung bases are clear. Intrathoracic stomach. The unenhanced contours of the liver are unremarkable. Gallbladder is normal. The spleen, pancreas and adrenal glands are stable. Right kidney is unchanged without renal or ureteral stone disease. Double-J stent in the left ureter with left renal cysts and lower pole left renal stones. Stone burden is grossly stable. Improving left hydronephrosis, now mild. No stone burden seen along the course of the stent in the left ureter. Bladder is grossly normal. No evidence of a bowel obstruction. Moderate stool throughout the colon. Bone windows are unchanged. Impression: Improving left sided stented hydronephrosis. Assessment and Plan (1) UTI (urinary tract infection) Current visit: Yes Status: Acute (2) Nephrolithiasis Current visit: Yes Status: Acute (3) Abdominal pain Current visit: Yes Status: Acute Assessment and Plan: Assessment Septicemia with E coli - 2 of 2 BC from ER draw positive Urinary tract infection with E coli RLL pneumonia - dx 10/05/17 Recent left-sided kidney stone with lithotripsy and stent placement and persistent left hydronephrosis - improving on CT scan Ab/Flank pain Hypokalemia - not POA Immunosuppression secondary to chemo Neutropenia on 10/07/2017-[address] Samaniego Yeast stomatitis CAD CHF by history HTN COPD FER Nocturnal hypoxia - 4L-chronic Type II DM GERD Chronic constipation Chronic pain Head and neck cancer, metastasized to bone Depression Plan Regarding bacteremia with Escherichia coli, UTI, renal stones, ureteral stent: the patient has received [address] Perez was consulted and she recommended changing to Cipro. We will start that tomorrow and she will see the patient tomorrow to help determine how long he will need antibiotics given his recent neutropenia and ongoing need for chemotherapy. Discontinue azithromycin area Maintaining sats on room air this am. The patient did develop neutropenia today and was given Granix Lisinopril is on hold. Consider resuming prior to discharge Pain control better today Possible dismissal tomorrow if improving. Will need to follow-up with urology regarding ureteral stent. Will discuss with urology prior to discharge DVT Prophylaxis: SCD's Resuscitation Status: Full Code - Time spent with patient Time with patient PN: 30 minutes - Physician Narrative Physician: Cary Pierre MD Narrative: Date: 10/07/17 Time: 1423 Hospital Course Summary Disclaimer: The visit summary below is not to be considered part of the above Progress Note. Hospital Course: 10/02/17 OBS admission Patient given IV ceftriaxone in the ED, started on IVF and supportive care. Will continue IVF overnight. Restart home pain meds, question some component of withdrawal given patient reports he has taken extra of his pain medications and he only gets 25pills a week. Urine CX and blood CX sent. 10/03/17 With positive BC for E coli and patient's immunocompromised status secondary to chemo, will change admission status to inpatient. Anticipate greater than 2 midnights of care needed. Continue with Rocephin for urinary coverage - check on pending sensitivities. Continue IVF for hydration. Initiate DuoNeb QID (and q4hr prn) along with budesonide 0.5mg BID due to COPD and wheezing. Continue home O2 at 4L when sleeping. Discussed about nicotine patch, but pt declines need for one. Continue Metoprolol, but hold lisinopril secondary to septicemia. Hold Jardiance due to septicemia. Monitor sugars. SCD ordered, but patient refusing secondary to discomfort. Will start Lovenox 40mg SQ daily. Will place consult for Dr Samaniego. Pt reports is scheduled for lab on 10/04. Full code as pt's request Care to [place] [facility] [place] [facility] [place]/04/17 Continue Rocephin (day #3) for E. coli bacteremia/UTI. Improvement in intake today - decrease IVF to 50 ml/hr. BUN down to 14 and creatinine down to 0.6. BGM under fairly good control, even while holding Jardiance. Appreciate Dr. Samaniego's expertise. 10/05/17 Continue Rocephin (day #4) for E. coli bacteremia/UTI. Tachycardic -- EKG repeated showing sinus tach (HR 114) with RBBB and frequent PVC. Q waves seen in V3/V4 also noted on EKG on admission. Tachycardia could be r/t fever -- Tylenol given. Decreased breath sounds especially RLL - will get CXR today. Does show infiltrate. Add Azithromycin for enhanced pulmonary coverage. Continue IVF d/t tachycardia -- may dc pending results of CXR especially knowing his oral drive is improving. Received Toprol XL at 0848 this am. K 3.3 -- KDur ordered. Will continue to hold lisinopril - BP under good control and he is at risk for hypotension d/t illness and tachycardia. Per Dr. Samaniego -- holding chemo. 10/06/17 Continue Rocephin (day #5) for E. coli bacteremia/UTI. Azithromycin was started yesterday for RLL pneumonia. Maintaining sats on room air this am. Afebrile; WBC decreased to 2.9 today. HR has decreased from 100s to 70-90 today. DC IVF. K improved to 3.7. Continue to hold Lisinopril - BP 105/67 this am. Schedule Roxicodone q4h. Pt concerned about pain control upon discharge - will need to discuss with Dr. Samaniego. Hope for discharge in the next 1-2 days.
[2017-10-07] MEDS: AZITHROMYCIN IV 500 MG in NS 250ml 250 ML IV SCH (18:00)
[2017-10-07] MEDS: MIRTAZAPINE 15 MG TABLET PO SCH (20:34)
[2017-10-07] MEDS: ATORVASTATIN 40 MG TABLET PO SCH (20:34)
[2017-10-08] MEDS: Oxycodone *IR* 5 MG TABLET PO SCH ×4 (01:01→14:21)
[2017-10-08] MEDS: OMEPRAZOLE 20 MG CAPSULE PO SCH (05:40)
[2017-10-08] MEDS: BUDESONIDE INH.SOLN 0.5mg/2ml NEB AEROSOL SCH (07:29)
[2017-10-08] MEDS: ALBUTEROL/IPRATROPIUM 2.5mg-0.5mg/3ml NEB AEROSOL SCH ×2 (07:29→12:09)
[2017-10-08 07:30] VITALS: BP 117/83; PULSE 89; RESP 20; TEMP 98.5
[2017-10-08 07:43] VITALS: O2SAT 96
[2017-10-08] MEDS: ASPIRIN 325 MG TABLET PO SCH (08:05)
[2017-10-08] MEDS: BuPROPion SR 150mg (12HR) TABLET PO SCH (08:06)
[2017-10-08] MEDS: GABAPENTIN 300 MG CAPSULE PO SCH ×2 (08:06→14:21)
[2017-10-08] MEDS: NYSTATIN 500,000 units/5 ml ORAL LIQUID PO SCH (08:07)
--- NOTE | 2017-10-08 08:31 | Infectious Disease Consult ---
Infectious Disease Consult Date of Consultation: 10/08/17 Requesting Physician: Cary Pierre Reason for Consultation: antibiotic recs History of Present Illness: Mr. Alexander is a 62-year-old man with a history of head and neck cancer on palliative chemotherapy who was recently found to have left ureteral nephrolithiasis and underwent lithotripsy with stent placement on September [address] Chou. He returned to the emergency department on October 02 with left -sided abdominal pain nausea vomiting and fever up to 102. He was admitted initially to observation. UA showed 50-100 white blood cells. His urine and blood cultures both grew Escherichia coli resistant only to ampicillin. He was treated with Rocephin and also some azithromycin for possible pneumonia. He had a chest x-ray which showed a right basilar infiltrate concerning for aspiration however he also had a repeat CT abdomen and pelvis on October 06 which showed that the lung bases were clear. The CT showed improvement in the left hydro- nephrosis with some kidney stones in the left kidney. He has clinically improved. The azithromycin was stopped. The Rocephin was changed to oral Cipro yesterday. The patient reports that his fever nausea and vomiting have resolved. He also reports that he had dysuria on admission which has now resolved. He is hoping to go home today. He actually missed his follow-up appointment with Dr. Chou because he was in the hospital. His white blood cell count went down to the 2000 range and he received a dose of G-CSF yesterday and his white count is now up to 9. Medications Home Medications Medication Instructions Recorded Confirmed Type Albuterol HFA Inhaler [Ventolin 2 puff ORAL INH Q4HR PRN 08/27/17 10/02/17 History Hfa 90 mcg/actuation] Albuterol Sulfate 2.5 mg AEROSOL DAILY 08/27/17 10/02/17 History Ascorbate Calcium [Vitamin C] 500 mg PO DAILY 08/27/17 10/02/17 History Aspirin 650 mg PO DAILY 08/27/17 10/02/17 History Atorvastatin [Lipitor] 40 mg PO HS 08/27/17 10/02/17 History Bisacodyl [Laxative] 5 mg PO DAILY 08/27/17 10/02/17 History Budesonide/Formoterol Fumarate 1 puff IH DAILY PRN 08/27/17 10/02/17 History [Symbicort 80-4.5 Mcg Inhaler] Cholecalciferol (Vitamin D3) 2,000 unit PO DAILY 08/27/17 10/02/17 History [Vitamin D3] Empagliflozin [Jardiance] 10 mg PO DAILY 08/27/17 10/02/17 History Gabapentin [Neurontin] 300 mg PO QID 08/27/17 10/02/17 History Ketoconazole [Ketoconazole] 1 applicatio TOP BID 08/27/17 10/02/17 History Lisinopril [Prinivil] 5 mg PO DAILY 08/27/17 10/02/17 History Metoprolol Succinate 25 mg PO DAILY 08/27/17 10/02/17 History Multivitamin [One Daily] 1 tab PO DAILY 08/27/17 10/02/17 History Omeprazole [Prilosec] 20 mg PO ACB 08/27/17 10/02/17 History Peg 3350 238 G Bottle [Miralax] 17 gm PO DAILY PRN 08/27/17 10/02/17 History Ranitidine [Zantac] 150 mg PO DAILY 08/27/17 10/02/17 History Tiotropium Handihaler [Spiriva] 1 cap ORAL INH DAILY 08/27/17 10/02/17 History Lidocaine [Lidoderm] 1 each TP DAILY #10 adh..patch 09/04/17 10/02/17 Rx Mirtazapine [Remeron] 7.5 mg PO HS tab 09/04/17 10/02/17 Rx buPROPion HCl [Bupropion HCl Sr] 150 mg PO DAILY 30 Days #30 09/04/17 10/02/17 Rx tab.er.12h Dicyclomine [Bentyl] 10 mg PO DAILY PRN 10/02/17 10/02/17 History Ondansetron HCl [Ondansetron HCl] 8 mg PO TID PRN 10/02/17 10/02/17 History Oxycodone HCl [Oxycodone HCl] 10 mg PO Q4-6HR PRN 10/02/17 10/02/17 History fentaNYL [Fentanyl] 1 patch TD Q72H 10/02/17 10/02/17 History Allergies Allergy/AdvReac Type Severity Reaction Status Date / Time No Known Allergies Allergy Verified 10/02/17 18:40 PFSH Medical History Updates: Cerebrovascular accident, Congestive heart failure, Hypertension, x14 mini strokes;. Chronic obstructive pulmonary disease;. Hiatal hernia, Acid reflux;. Hematologic Hx of blood clots;. Musculoskeletal Arthritis;. Endocrine/metabolic Diabetes mellitus type II; Surgical History: Multiple hernia repairs. Microlaryngoscopy. Right radical tonsillectomy. Modified neck dissection. TURP. Family History: Reviewed and noncontributory - Social History Smoking status: Current every day smoker (Patient reports that he quit) Packs-years: 40 second hand exposure: Yes (daughter lives with patient. She is a smoker, states does not smoke in home) Substance use type: does not use Alcohol intake: former Alcohol intake frequency: does not drink Housing: house Household members: family, children, caregiver Current occupational status: disabled Does patient use chewing tobacco?: No Current residence: Apartment/Private Home Review of Systems All systems PM: 10-point ROS was reviewed, no additional remarkable complaints except - Constitutional Constitutional: Absent: fever(s), headache(s) - Cardiovascular Cardiovascular: Absent: chest pain - Respiratory Respiratory: Absent: dyspnea - Gastrointestinal Gastrointestinal: Absent: diarrhea, nausea, vomiting - Genitourinary Genitourinary: Present: hematuria (mild). Absent: dysuria, flank pain - Musculoskeletal Musculoskeletal: Present: back pain (chronic) Exam Vital Signs: Temperature 98.5 F 10/08/17 07:29 Pulse Rate 89 10/08/17 07:29 Respiratory Rate 20 10/08/17 07:29 Blood Pressure 117/83 10/08/17 07:29 Pulse Oximetry 96 10/08/17 07:29 Height/Weight/BMI: Height 1.78 m Weight 86 kg Body Mass Index 26.9 - Constitutional Present: no acute distress, well nourished, well developed - Routine HEENT Exam Head: Present: normocephalic, atraumatic Eye: Present: EOMI, PERRL ENT: Present: mucous membranes moist, oropharynx clear, dentition normal - Routine Neck Exam Present: supple - Routine Respiratory Exam Present: CTA bilaterally - Routine Cardiovascular Exam Present: RRR - Routine Abdominal Exam Present: soft, normoactive bowel sounds, non distended, non tender - Routine Exam Comments: No CVA tenderness - Routine Extremities Exam Present: edema (trace LEs). Absent: cyanosis, clubbing - Routine Skin Exam Present: intact. Absent: rash Comments: R anterior chest PAC without redness, accessed - Routine Neurological Exam Present: alert, oriented X3, CN II-XII intact. Absent: motor deficit - Routine Psychiatric Exam Present: normal affect Results - Labs CBC & Chem 7: 10/08/17 05:46 10/08/17 05:46 Microbiology Results: Blood cultures 10/02/17: 2/2 E. coli R only to ampicillin Urine culture 10/02/17: >100K E. coli R only to ampicillin Impression: Sepsis, secondary to urinary source Septicemia with E. 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 On XRT + weekly Carbo. DM II CAD CHF HTN COPD FER Nocturnal hypoxia - 4L Chronic pain Tobaccoism Recommendation: I would recommend continuing with ciprofloxacin 500 mg by mouth twice a day for at least 2 weeks. Clinically he is much improved. He needs to follow-up with Dr. Chou regarding the ureteral stent and nephrolithiasis. From my standpoint I think he can be discharged today. I got him a follow-up appointment in my office on October 14 at 2:30 PM. My recommendations were discussed with Dr. Pierre.
[2017-10-08] MEDS ORDERED: CIPROFLOXACIN 500 MG TABLET PO SCH (09:00)
--- NOTE | 2017-10-08 10:06 | Progress Note ---
<Rosa Gao - Last Filed: 10/08/17 15:34> Oncology Subjective Alert and oriented. States feeling much improved. No fever, chills, night sweats. Infrequent nonproductive cough. No increased cough, no shortness of air. He is eating and drinking well, no further nausea/vomiting. No diarrhea constipation. Denies dysuria/frequency. Continues with chronic pain. General: No fever, no night sweats Eyes: No redness, no pain, no diplopia ENT: No mouth sores, no trouble swallowing Cardiac: No chest pain no palpitations Pulmonary: +cough, no shortness of breath, no wheezing Abdomen: No pain, no nausea vomiting, no diarrhea or constipation : No urgency, frequency, dysuria, or hematuria Musculoskeletal: chronic back pain Neurological: No headaches, no focal weakness Skin: No rash, no sores Psychiatric: No anxiety, no depression Exam Vital signs: Temperature 98.5 F 10/08/17 07:29 Pulse Rate 89 10/08/17 07:29 Respiratory Rate 20 10/08/17 07:29 Blood Pressure 117/83 10/08/17 07:29 Pulse Oximetry 96 10/08/17 07:29 - Constitutional no acute distress, well nourished, well developed - Routine HEENT Exam Head: Present: normocephalic Eye: Present: EOMI ENT: Present: mucous membranes moist - Routine Neck Exam Present: supple. Absent: lymphadenopathy - Routine Respiratory Exam Present: decreased breath sounds. Absent: wheezes, crackles - Routine Cardiovascular Exam Present: RRR. Absent: no murmur - Routine Abdominal Exam Present: soft, normoactive bowel sounds, non tender - Routine Extremities Exam Present: no edema, full ROM - Routine Back/Spine/Pelvis Exam Back/Spine: Absent: vertebral tenderness - Routine Skin Exam Present: intact, dry, pallor - Routine Neurological Exam Present: alert, oriented X3 - Routine Psychiatric Exam Present: normal affect, cooperative Oncology Results - Labs CBC & Chem 7: 10/08/17 05:46 10/08/17 05:46 Labs: Short CBC 10/08/17 Range/Units 05:46 WBC 9.4 D (4.5-11.0) T/MM3 Hgb 10.9 L (13.5-17.5) GM/DL Hct 32.5 L (41-53) % Plt Count 178 (130-400) T/MM3 BMP 10/08/17 05:46 Sodium 142 Potassium 3.8 Chloride 102 Carbon Dioxide 29 BUN 10.0 Creatinine 0.5 L Glucose 127 H Calcium 9.2 Liver Function 10/08/17 Range/Units 05:46 Albumin 3.3 L (3.5-5.0) G/DL Assessment and Plan Assessment and Plan: Assessment 1. 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 On XRT + wkly Carbo. 2. Large left kidney stone, status post lithotripsy and stent placement September [address] scan shows stable findings/hydronephrosis improved. See urology in follow-up as scheduled. 3. + ecoli in blood and urine on antibiotics. Clinically improved. Seen by infectious disease; recommend continue oral Cipro for [address] Perez as outpatient. 4. Anxiety/depression. Stable. 5. Yeast stomatitis. 6. Multiple comorbidities, COPD, type 2 diabetes mellitus, coronary artery disease, history of stroke, history DVT. Past smoking history-states quit smoking Aug 2017. 7. Neutropenia due to chemotherapy. Given G-CSF 1 yesterday. WBC today 9.4 Plan Oncology okay with dismissal to home. Follow-up with Dr. Samaniego 10/11/17 with CBC, CMP, LDH, magnesium. Patient is given appointment information. - Time Spent With Patient Total time spent is greater than 50% in coordination of care (as documented) at patient's floor/unit and/or counseling patient: less than 15 minutes <Kyler Samaniego - Last Filed: 10/08/17 17:52> Exam Vital signs: Temperature 98.5 F 10/08/17 07:29 Pulse Rate 89 10/08/17 07:29 Respiratory Rate 20 10/08/17 07:29 Blood Pressure 117/83 10/08/17 07:29 Pulse Oximetry 96 10/08/17 07:29 Oncology Results - Labs CBC & Chem 7: 10/08/17 05:46 10/08/17 05:46 Labs: Short CBC 10/08/17 Range/Units 05:46 WBC 9.4 D (4.5-11.0) T/MM3 Hgb 10.9 L (13.5-17.5) GM/DL Hct 32.5 L (41-53) % Plt Count 178 (130-400) T/MM3 BMP 10/08/17 05:46 Sodium 142 Potassium 3.8 Chloride 102 Carbon Dioxide 29 BUN 10.0 Creatinine 0.5 L Glucose 127 H Calcium 9.2 Liver Function 10/08/17 Range/Units 05:46 Albumin 3.3 L (3.5-5.0) G/DL Assessment and Plan Assessment and Plan: Patient examined. Chart Reviewed. Patient to go home today. Reviewed Narcotic prescriptions. He was given 25 oxycodone tablets on 09/29. He was admitted on 10/02. He was given a max of 6 tables per day. He currently has none of the 25 left which would be over 8 per day that was taken. In addition with admission to psych he has also taken more then prescribed amount of narcotics and threatened to harm himself by overdosing on pain pills. He was aware that he violated his narcotic contract with that event and that I would give him one more chance. This taking pain medication above prescribed amounts violates his narcotic contract and therefore I am forced to revoke the continued prescribing of controlled drugs. WBC better after G CSF. - Time Spent With Patient Total time spent is greater than 50% in coordination of care (as documented) at patient's floor/unit and/or counseling patient:
[2017-10-08] MEDS: RANITIDINE 150 MG TABLET PO SCH (11:30)
--- NOTE | 2017-10-08 12:59 | Discharge Summary ---
Discharge Information Date of admission: 10/03/17 13:04 Anticipated date of discharge: 10/08/17 Attending Physician: Cary Pierre MD Primary care physician: Nya Beckwith APRN Consults: 10/03/17 17:26 Dr [Physician Consult] [CONS] Routine Consulting Provider: Kyler Samaniego Reason For Exam: Pt of yours with lymphoma-to have lab on 10/04 Ordering Provider has Notified [facility] Nurse: No Comment: May see 10/0510/05/17 11:11 Doctor [Physician Consult] [CONS] Routine Consulting Provider: [facility] Reason For Exam: CONTINUED CARE Ordering Provider has Notified [facility] Nurse: Yes 10/06/17 09:49 Case Management Consult [CONS] Routine Reason For Exam: Questions on Dept of A[facility] 10/07/17 14:21 Physician Consult [CONS] Routine Consulting Provider: Kira Perez Reason For Exam: complicated uti/bacteremia Ordering Provider has Notified [facility] Nurse: Yes - Discharge Diagnosis (1) UTI (urinary tract infection) Status: Acute (2) Nephrolithiasis Status: Acute (3) Abdominal pain Status: Acute Sepsis Bacteremia with Escherichia coli UTI with Escherichia coli Possible right lower lobe pneumonia-improved Flank pain/abdominal pain Immunosuppression secondary to chemotherapy Neutropenia requiring Granix on 10/07/2017 Nocturnal hypoxia on 4 L at night Chronic pain Metastatic head and neck cancer Recent left-sided kidney stone with lithotripsy and stent placement with left hydronephrosis improving on CAT scan - Procedures Procedures: None - Laboratory Labs: 10/08/17 05:46 10/08/17 05:46 Laboratory Tests 10/02/17 10/02/17 10/02/17 18:35 21:29 21:29 WBC Neut # (Auto) Total Bilirubin 1.20 AST 18 ALT 29 Alkaline Phosphatase 88 Troponin I < 0.012 Total Protein 8.0 Albumin 4.6 Globulin 3.4 Albumin/Globulin Ratio 1.4 Lipase 16 L Plasma Lactate 0.9 Procalcitonin 0.24 10/03/17 10/07/17 00:18 04:56 WBC 2.6 L Neut # (Auto) 1.5 L Total Bilirubin AST ALT Alkaline Phosphatase Troponin I Total Protein Albumin Globulin Albumin/Globulin Ratio Lipase Plasma Lactate 1.4 Procalcitonin Laboratory Tests 10/02/17 10/02/17 19:54 19:54 Ur Collection Type Urine, void-cc/notcc Urine Color Yellow Urine Clarity Cloudy Urine pH 5.5 Ur Specific [place] 1.025 Urine Protein 1+ A Urine Glucose (UA) 3+ A Urine Ketones 2+ A Urine Occult Blood 3+ A Urine Nitrate Negative Urine Bilirubin Negative Urine Urobilinogen 0.2 Ur Leukocyte Esterase 1+ A Urine RBC 5-10 H Urine WBC 50-200 H Urine Bacteria 2+ H Influenza Type A (PCR) Negative Influenza Type B (PCR) Negative - Microbiology Blood cultures 2 and urine culture positive for Escherichia coli which was sensitive to all antibiotics tested except for ampicillin - Radiology Radiology: Date of Exam: 10/02/17 Ordering Provider: Sam Castaneda DO Type of Exam(s): CT abdomen pelvis wo con Reason for Exam(s): vomiting, hx renal stone Indication: vomiting, hx renal stone PROCEDURE: CT abdomen pelvis wo con: Encounter: Initial Comparison: September 26, 2017 Technique: Axial CT images were performed through the abdomen and pelvis without intravenous contrast. Coronal and sagittal two-dimensional reformats. Automated Exposure Control and Iterative Reconstruction dose reducing techniques were utilized. Findings: The lung bases are stable. Intrathoracic stomach again noted. The liver, gallbladder, spleen, pancreas and adrenal glands are stable with small bilateral adrenal adenomas. Right kidney shows a small hyperdense cyst in the lower pole without obstructing stone. New left-sided double-J stent in place. There is persistent severe left hydronephrosis with stone debris in the lower pole calyces. No definite stone along the course of the stent. There is perinephric stranding in the left retroperitoneum extending inferiorly along the ureter. No bowel obstruction. Lytic lesion in the L3 vertebra has been seen on prior MRI. Impression: Interval stenting of the left ureter with persistent hydronephrosis. Date of Exam: 10/06/17 Ordering Provider: Sanju Angeles MD Type of Exam(s): CT abdomen pelvis wo con Reason for Exam(s): f/u hydronephrosis Indication: f/u hydronephrosis PROCEDURE: CT abdomen pelvis wo con: Encounter: Initial Comparison: October 02, 2017 Technique: Axial CT images were performed through the abdomen and pelvis without intravenous contrast. Coronal and sagittal two-dimensional reformats. Automated Exposure Control and Iterative Reconstruction dose reducing techniques were utilized. Findings: The lung bases are clear. Intrathoracic stomach. The unenhanced contours of the liver are unremarkable. Gallbladder is normal. The spleen, pancreas and adrenal glands are stable. Right kidney is unchanged without renal or ureteral stone disease. Double-J stent in the left ureter with left renal cysts and lower pole left renal stones. Stone burden is grossly stable. Improving left hydronephrosis, now mild. No stone burden seen along the course of the stent in the left ureter. Bladder is grossly normal. No evidence of a bowel obstruction. Moderate stool throughout the colon. Bone windows are unchanged. Impression: Improving left sided stented hydronephrosis. Date of Exam: 10/05/17 Ordering Provider: Soumya Durán APRN Type of Exam(s): XR chest 2V Reason for Exam(s): fever, decreased breath sounds right base INDICATION: fever, decreased breath sounds right base PROCEDURE: CHEST 2-VIEWS UPRIGHT (PA & LAT) Encounter: Initial COMPARISON: July 21, 2017 FINDINGS: New airspace consolidation in the right lower lobe. No pleural effusion or pneumothorax. Mild interstitial prominence. Heart size and mediastinal contours are stable. Large hiatal hernia. Right IJ port catheter. Pulmonary vascularity is stable. Impression: Right lower lobe pneumonia or aspiration. History of Present Illness HPI: 62 y/o male with Lymphoma presents to ED with ab/flank pain and n/v. Increasing n/v over past 3 day. Becoming harder to keep foods/liquids as well as meds in. Pain to left ab and flank for the last 2 days - similar to pain he had on 09/26 when he presented to ED and found to have kidney stone (transferred to [facility] and had lithotripsy/stent placement by Dr Hunt). Notes temp elevation at home-as high as 102. No diarrhea (chronically constipated secondary to his pain medications). Denies increasing SOA cough or congestion. Not feeling chest pressure, pain, or palpitations. Is becoming more weak and unsteady. Presents to ED for evaluation. Lab showing evidence of UTI. Given Rocephin for coverage and placed in OBS for further care and continue IV antibiotics. Objective Vital signs: Temperature 98.5 F 10/08/17 07:29 Pulse Rate 89 10/08/17 07:29 Respiratory Rate 20 10/08/17 07:29 Blood Pressure 117/83 10/08/17 07:29 Pulse Oximetry 96 10/08/17 07:29 Height/Weight/BMI: Height 1.78 m Weight 86 kg Body Mass Index 26.9 Comments: The patient was seen on 10/08/2017 and feeling quite well. On exam he is alert and oriented 3. He has been up and walking in the halls without difficulties. Chest is clear to auscultation. Cardiovascular reveals a regular rate and rhythm. Abdomen is soft and nontender. Extremities are free of edema. Skin is warm and dry and without rashes. Hospital Course This is a general summary of the patient's hospital course. For more details refer to the complete medical record. Hospital course: 10/02/17 OBS admission Patient given IV ceftriaxone in the ED, started on IVF and supportive care. Will continue IVF overnight. Restart home pain meds, question some component of withdrawal given patient reports he has taken extra of his pain medications and he only gets 25pills a week. Urine CX and blood CX sent. 10/03/17 With positive BC for E coli and patient's immunocompromised status secondary to chemo, will change admission status to inpatient. Anticipate greater than 2 midnights of care needed. Continue with Rocephin for urinary coverage - check on pending sensitivities. Continue IVF for hydration. Initiate DuoNeb QID (and q4hr prn) along with budesonide 0.5mg BID due to COPD and wheezing. Continue home O2 at 4L when sleeping. Discussed about nicotine patch, but pt declines need for one. Continue Metoprolol, but hold lisinopril secondary to septicemia. Hold Jardiance due to septicemia. Monitor sugars. SCD ordered, but patient refusing secondary to discomfort. Will start Lovenox 40mg SQ daily. Will place consult for Dr Samaniego. Pt reports is scheduled for lab on 10/04. Full code as pt's request Care to return to Nya Beckwith at time of discharge from [facility]. 10/04/17 Continue Rocephin (day #3) for E. coli bacteremia/UTI. Improvement in intake today - decrease IVF to 50 ml/hr. BUN down to 14 and creatinine down to 0.6. BGM under fairly good control, even while holding Jardiance. Appreciate Dr. Samaniego's expertise. 10/05/17 Continue Rocephin (day #4) for E. coli bacteremia/UTI. Tachycardic -- EKG repeated showing sinus tach (HR 114) with RBBB and frequent PVC. Q waves seen in V3/V4 also noted on EKG on admission. Tachycardia could be r/t fever -- Tylenol given. Decreased breath sounds especially RLL - will get CXR today. Does show infiltrate. Add Azithromycin for enhanced pulmonary coverage. Continue IVF d/t tachycardia -- may dc pending results of CXR especially knowing his oral drive is improving. Received Toprol XL at 0848 this am. K 3.3 -- KDur ordered. Will continue to hold lisinopril - BP under good control and he is at risk for hypotension d/t illness and tachycardia. Per Dr. Samaniego -- holding chemo. 10/06/17 Continue Rocephin (day #5) for E. coli bacteremia/UTI. Azithromycin was started yesterday for RLL pneumonia. Maintaining sats on room air this am. Afebrile; WBC decreased to 2.9 today. HR has decreased from 100s to 70-90 today. DC IVF. K improved to 3.7. Continue to hold Lisinopril - BP 105/67 this am. Schedule Roxicodone q4h. Pt concerned about pain control upon discharge - will need to discuss with Dr. Samaniego. Hope for discharge in the next 1-2 days. 10/07/2017 Regarding bacteremia with Escherichia coli, UTI, renal stones, ureteral stent: the patient has received [address] Perez was consulted and she recommended changing to Cipro. We will start that tomorrow and she will see the patient tomorrow to help determine how long he will need antibiotics given his recent neutropenia and ongoing need for chemotherapy. Discontinue azithromycin. Maintaining sats on room air this am. The patient did develop neutropenia today and was given Granix by Dr. Samaniego Lisinopril is on hold. Consider resuming prior to discharge Pain control better today Possible dismissal tomorrow if improving. Will need to follow-up with urology regarding ureteral stent. Will discuss with urology prior to discharge 10/08/2017 The patient is doing well today. He appears stable for dismissal to home today. He is tolerating Cipro which she is on for Escherichia coli bacteremia and UTI which is complicated by renal stones and ureteral stent. Dr. Perez has recommended Cipro for another 2 weeks. She would like to follow-up with him in approximately 2 weeks. I did notify Dr. Chou I have recent hospital course and he would like the patient to follow-up in the next 1-2 weeks with him. The patient's neutropenia has resolved. He will need to see Dr. Samaniego next week on October 11 for lab work. The patient is concerned about pain control with his metastatic cancer and he will discuss this with Dr. Samaniego. Time spent with patient: discharge greater than 30 minutes Resuscitation Status: Full Code Discharge Plan - Discharge Disposition Disposition: Discharged Home, Self-Care *Condition: Improved Reason For Visit (Visit label in EMR): Abdominal pain, UTI - Discharge Medications *Discharge Medications: New Ciprofloxacin [Cipro 500 mg] 500 mg PO Q12HR #28 tab Continue Ketoconazole 1 applicatio TOP BID Ranitidine [Zantac] 150 mg PO DAILY Cholecalciferol (Vitamin D3) [Vitamin D3] 2,000 unit PO DAILY Budesonide/Formoterol Fumarate [Symbicort 80-4.5 Mcg Inhaler] 1 puff IH DAILY PRN PRN Reason: Prn Orders Ascorbate Calcium [Vitamin C] 500 mg PO DAILY Tiotropium Handihaler [Spiriva] 1 cap ORAL INH DAILY Omeprazole [Prilosec] 20 mg PO ACB Multivitamin [One Daily] 1 tab PO DAILY Metoprolol Succinate 25 mg PO DAILY Peg 3350 238 G Bottle [Miralax] 17 gm PO DAILY PRN PRN Reason: Constipation Lisinopril [Prinivil] 5 mg PO DAILY Gabapentin [Neurontin] 300 mg PO QID Bisacodyl [Laxative] 5 mg PO DAILY Aspirin 650 mg PO DAILY Albuterol Sulfate 2.5 mg AEROSOL DAILY Albuterol HFA Inhaler [Ventolin Hfa 90 mcg/actuation] 2 puff ORAL INH Q4HR PRN PRN Reason: Shortness Of Air/Wheezing Mirtazapine [Remeron] 7.5 mg PO HS tab fentaNYL [Fentanyl] 1 patch TD Q72H Dicyclomine [Bentyl] 10 mg PO DAILY PRN PRN Reason: Prn Orders Ondansetron HCl 8 mg PO TID PRN PRN Reason: Nausea Empagliflozin [Jardiance] 10 mg PO DAILY Atorvastatin [Lipitor] 40 mg PO HS buPROPion HCl [Bupropion HCl Sr] 150 mg PO DAILY 30 Days #30 tab.er.12h Lidocaine [Lidoderm] 1 each TP DAILY #10 adh..patch Changed Oxycodone HCl 10 mg PO TID PRN #12 tab PRN Reason: Pain - Discharge Packet/Instructions *Diet: Diabetic diet *Activity: Light activity as tolerated. *Pain Management/Treatment: Tylenol, fentanyl, oxycodone as needed *Wound Care: Not applicable *Expected Signs/Symptoms: Mild pain, mild fatigue *Notify Physician if: Notify your physician if you have a rash, worsening pain, shortness of breath, fevers, or any worsening symptoms *During Business Hours Contact: Call Dr. Samaniego's office *After Business Hours Contact: Call [phone] and have your doctor paged - Referrals/Follow Up *Referrals/Follow Up: Jamie Chou MD [Physician] - 1 Week Kyler Samaniego MD [Physician] - 3 Days Kira Perez MD [Physician] - 2 Weeks Nya Beckwith APRN [Family Provider] - 1 Week - Patient Handouts Patient Handouts: Urinary Tract Infection in Men (GEN), Abdominal Pain (ED) - Dismissal Complete Discharge Instructions are:: Complete Physician Narrative - Narrative Attestation Narrative: Date: 10/08/17 Time: [id number]
[2017-10-08] MEDS: SALINE FLUSH 10ml SYRINGE IVF PRN (14:22)
== END 2017-10-08 14:30 | disposition home or self-care (01) | DRG 872 ==
LOC: ED 18:22 → MED 18:22 → SUATTDRO 10-03 13:04
PROVIDERS: ADMIT Internal Medicine; ATTEND Internal Medicine